=== PATIENT | female | born 1960 | race Caucasian/White ===

== ENCOUNTER → 2017-10-26 10:23 | Outpatient (CLI) | payer OTHER, MEDICAID, SELFPAY ==
[2017-10-26 11:45] LABS: INR 1.3 (0.9-1.3); Prothrombin Time 13.6 SECONDS (10.1-12.7)
[2017-10-26 12:10] LABS: Alanine Aminotransferase 24 IU/L (9-52); Albumin 3.8 g/dL (3.5-5.0); Albumin Globulin Ratio 1.1 (1.0-2.8); Alkaline Phosphatase 186 U/L (38-126); Amylase 32 U/L (30-110); Aspartate Aminotransferase 99 IU/L (14-36); Bilirubin Total 3.5 mg/dL (0.2-1.3); Calcium 8.8 mg/dL (8.4-10.2); Estimated Glomerular Filt Rate > 60.0 mL/min (>60); Gamma Glutamyl Transpeptidase 623 U/L (12-43); Globulin 3.5 g/dL (1.7-4.1); Glucose 118 mg/dL (70-100); HEMOLYSIS < 15 (0-50); Lipase 171 U/L (23-300); Magnesium 1.2 mg/dL (1.6-2.3); Potassium 3.5 mmol/L (3.4-5.1); Sodium 141 mmol/L (137-145); Total Protein 7.3 g/dL (6.3-8.2)
[2017-10-26 12:41] LABS: Thyroid Stimulating Hormone 4.94 uIU/mL (0.47-4.68)
[2017-10-26 12:57] LABS: Vitamin B12 343 pg/mL (239-931)
[2017-10-26 19:03] LABS: Hep C Virus Ab w/Reflex Quant NEGATIVE s/c (NEGATIVE)
[2017-10-27 14:03] LABS: Insulin Level Total 11.6 uIU/mL (2.0-19.6)
[2017-10-29 07:22] LABS: Vitamin B6 < 2.0 ng/mL (2.1-21.7)
[2017-10-30 09:40] LABS: Vitamin B1 168 nmol/L (78-185)
== END ==
PROVIDERS: Family Provider Family Medicine; PCP Family Medicine; Visit Provider Physician Assistant
DX: L29.8 Other pruritus (principal); F10.20 Alcohol dependence, uncomplicated; I10 Essential (primary) hypertension; R53.83 Other fatigue; K70.30 Alcoholic cirrhosis of liver without ascites
CPT/HCPCS: 36415; 80053; 82140; 82150; 82607; 82977; 83525; 83690; 83735; 84207; 84425; 84443; 85610; 86803

== ENCOUNTER → 2018-06-14 10:45 | Outpatient (CLI) | payer OTHER, MEDICAID, SELFPAY ==
[2018-06-14 11:47] LABS: Add Manual Diff / Slide Review NO; Basophils Percent Auto 0.6 % (0-2); Eosinophils Percent Auto 2.6 % (2-4); Hematocrit 41.6 % (36-46); Hemoglobin 14.2 g/dL (12.0-16.0); Lymphocytes Percent Auto 22.4 % (25-40); Mean Corpuscular HGB Conc 34.2 % (30-36); Mean Corpuscular Hemoglobin 32.4 PG (26-34); Monocytes Percent Auto 6.4 % (3-14); Neutrophils Absolute Auto 4000 /uL (1500-7000); Platelet Count 153 X10^3/uL (150-400); Red Blood Cell Count 4.38 X10^6/uL (4.0-5.2); Red Cell Distribution Width 15.4 % (11.6-14.8); White Blood Cell Count 5.9 X10^3/uL (4.5-11.0)
[2018-06-14 11:49] LABS: HEMOLYSIS < 15 (0-50); Iron 100 ug/dL (37-170)
[2018-06-14 11:53] LABS: Alanine Aminotransferase 8 IU/L (9-52); Albumin 4.9 g/dL (3.5-5.0); Albumin Globulin Ratio 1.3 (1.0-2.8); Alkaline Phosphatase 100 U/L (38-126); Aspartate Aminotransferase 31 IU/L (14-36); BUN Creatinine Ratio 11.3 (6-22); Bilirubin Total 2.2 mg/dL (0.2-1.3); Blood Urea Nitrogen 9 mg/dL (7-17); Calcium 9.8 mg/dL (8.4-10.2); Carbon Dioxide 24 mmol/L (22-32); Chloride 106 mmol/L (98-107); Cholesterol 196 mg/dL (140-199); Estimated Glomerular Filt Rate > 60.0 mL/min (>60); Globulin 3.8 g/dL (1.7-4.1); Glucose 107 mg/dL (70-100); HDL Cholesterol 57 mg/dL (40-60); HEMOLYSIS < 15 (0-50); LDL Cholesterol Calculated 116 mg/dL (<100); Magnesium 1.7 mg/dL (1.6-2.3); Potassium 4.1 mmol/L (3.4-5.1); Sodium 143 mmol/L (137-145); Total Protein 8.7 g/dL (6.3-8.2); Triglycerides 117 mg/dL (35-150)
[2018-06-14 12:00] LABS: Percent Iron Saturation 31 % (15-50); Total Iron Binding Capacity 319 ug/dL (265-497); Transferrin 252 mg/dL (206-381)
[2018-06-14 12:05] LABS: Creatinine Urine Random 99.3 mg/dL
[2018-06-14 12:10] LABS: Microalbumin Urine Random 0.6 mg/dL (0-1.6)
[2018-06-14 12:22] LABS: Thyroid Stimulating Hormone 3.34 uIU/mL (0.47-4.68)
[2018-06-14 12:26] LABS: Ferritin 88.9 ng/mL (11.1-264)
[2018-06-14 12:57] LABS: Folate 19.1 ng/mL (2.76-20.0); Vitamin B12 291 pg/mL (239-931)
[2018-06-15 19:08] LABS: Vitamin B6 6.8 ng/mL (2.1-21.7)
== END ==
PROVIDERS: PCP Physician Assistant; Visit Provider Physician Assistant
DX: I10 Essential (primary) hypertension (principal); K70.30 Alcoholic cirrhosis of liver without ascites; L65.9 Nonscarring hair loss, unspecified; R53.83 Other fatigue; E53.1 Pyridoxine deficiency; R79.0 Abnormal level of blood mineral
CPT/HCPCS: 36415; 80053; 80061; 82043; 82570; 82607; 82728; 82746; 83540; 83550; 83735; 84207; 84443; 85025

== ENCOUNTER 2018-11-22 20:25 | Emergency (ER) | payer OTHER, MEDICAID, SELFPAY ==
[2018-11-22 20:28] VITALS: BP 171/90; PULSE 82; RESP 14; TEMP 36.6; O2SAT 96
--- NOTE | 2018-11-22 20:37 | DI.RAD.S_ITS ---
PROCEDURE: XR ANKLE LT MIN 3V INDICATIONS: fall w/ pain swelling in ankle TECHNIQUE: 3 views of the ankle were acquired. COMPARISON: None. FINDINGS: Bones: No bony irregularity at the tip of the lateral malleolus is present. No displaced fractures or dislocations are identified. The ankle mortise is well-maintained. Sclerosis and heterogeneity involving the navicular is noted, which is not well characterized. The ankle mortise is well-maintained. There is lucency evident involving the lateral margin of the talar dome. Os trigonum is noted. Soft tissues: Soft tissue swelling overlying the lateral malleolus is evident. No radiopaque foreign bodies are evident. IMPRESSION: 1. Probable subtle avulsion fracture involving the tip of the lateral malleolus. 2. Lucency involving the lateral talar dome is suspicious for a developing osteochondral defect. CT or MRI would be helpful for better evaluation. 3. Sclerosis of the navicular may be related to previous injury. However, subtle compression fracture cannot be completely excluded. Dictated by: Aly Carr M.D. on 11/22/2018 at 21:31 Approved by: Aly Carr M.D. on 11/22/2018 at 21:33
--- NOTE | 2018-11-22 21:32 | ED.LOWEXIN ---
HPI - Extremity Injury (Lower) General Chief Complaint: Extremity Injury, Lower Stated Complaint: LEFT ANKLE SWELLING Time Seen by Provider: 11/22/18 21:23 Source: patient Mode of arrival: ambulatory Limitations: no limitations History of Present Illness HPI Narrative: Patient is a 58-year-old female who presents with left ankle pain. She says she rolled it just about an hour ago she initially was able to walk on it however she has had more bruising swelling. She denies any numbness or tingling. No knee pain. Related Data Home Medications Medication Instructions Recorded Confirmed multivitamin [Multiple Vitamins] 1 tab PO QDAY #0 05/12/17 11/22/18 verapamil 120 mg PO DAILY 11/22/18 11/22/18 Previous Rx's Medication Instructions Recorded lorazepam 1 mg tablet 1 mg PO .COMPLEX #30 tab 05/20/18 Allergies Allergy/AdvReac Type Severity Reaction Status Date / Time Penicillins [PENICILLINS] Allergy Mild RASH Verified 11/22/18 20:30 lisinopril [LISINOPRIL] AdvReac Intermediate Nausea Verified 11/22/18 20:30 Redness of skin Review of Systems Review of Systems GENERAL: Denies chills,fever HEENT: Denies throat pain RESPIRATORY: Denies dyspnea, cough, wheezing CARDIOVASCULAR: Denies chest pain, palpitations GASTROINTESTINAL: Denies nausea, vomiting MUSCULOSKELETAL: See HPI SKIN: No rash, no laceration, no pruritus NEUROLOGIC: Denies weakness, dizziness, headache, numbness 8 point review of systems is negative except for those stated above and HPI PFSH Medical History Patient denies significant medical history (Acute) Surgical History Status post delivery Status post laparoscopic cholecystectomy (04/26/17) Family History Mother Cancer Grandfather Heart disease Social History Smoking Status: Current every day smoker Tobacco: How many years used: 30 quit status: not considering quitting (Declined cessation handout) second hand exposure: No alcohol intake: former (I quit 6 months ago.) substance use type: does not use Family History Mother Cancer Grandfather Heart disease Social History Smoking Status: Current every day smoker Tobacco: How many years used: 30 quit status: not considering quitting (Declined cessation handout) second hand exposure: No alcohol intake: former (I quit 6 months ago.) substance use type: does not use Exam Initial Vital Signs Initial Vital Signs: Vital Signs Temperature 97.8 F 11/22/18 20:28 Pulse Rate 82 11/22/18 20:28 Respiratory Rate 14 11/22/18 20:28 Blood Pressure 171/90 H 11/22/18 20:28 Pulse Oximetry 96 11/22/18 20:28 GENERAL: Well-appearing, well-nourished and in no acute distress. CARDIOVASCULAR: peripheral pulses in tact, cap refill <2 sec RESPIRATORY: No respiratory distress, speaks in full sentences without difficulty EXTREMITIES: Normal range of motion, no clubbing or edema. Neurovascularly intact Left ankle: Swelling and contusion noted on lateral malleoli significant pain with touching peripheral pulses intact. Achilles tendon intact knee is stable. NEUROLOGICAL: Cranial nerves II through XII grossly intact. Normal gait and speech. SKIN: Warm, dry, no petechiae, no rashes or lesions. Procedures Orthopedic Splinting/Casting Injury #1: Side: left Lower Extremity Injury Location: ankle Lower Extremity Immobilizer: boot orthosis Post splinting neuro exam: intact Post splinting vascular exam: intact Placed by: Nursing Course Orders Ordered: ED Orders 11/22/18 20:37 XR ankle LT min 3V Stat Vital Signs - 8 hr 11/22/18 20:28 11/22/18 22:14 Temperature 97.8 F 98.2 F Pulse Rate 82 70 Respiratory Rate 14 20 Blood Pressure 171/90 H 174/93 H Pulse Oximetry 96 97 MDM - Extremity Injury (Lower) Imaging Data Abdominal x-ray: Radiologist's impression: PROCEDURE: XR ANKLE LT MIN 3V INDICATIONS: fall w/ pain swelling in ankle TECHNIQUE: 3 views of the ankle were acquired. COMPARISON: None. FINDINGS: Bones: No bony irregularity at the tip of the lateral malleolus is present. No displaced fractures or dislocations are identified. The ankle mortise is well-maintained. Sclerosis and heterogeneity involving the navicular is noted, which is not well characterized. The ankle mortise is well-maintained. There is lucency evident involving the lateral margin of the talar dome. Os trigonum is noted. Soft tissues: Soft tissue swelling overlying the lateral malleolus is evident. No radiopaque foreign bodies are evident. IMPRESSION: 1. Probable subtle avulsion fracture involving the tip of the lateral malleolus. 2. Lucency involving the lateral talar dome is suspicious for a developing osteochondral defect. CT or MRI would be helpful for better evaluation. 3. Sclerosis of the navicular may be related to previous injury. However, subtle compression fracture cannot be completely excluded. Dictated by: Aly Carr M.D. on 11/22/2018 at 21:31 MDM Narrative Medical decision making narrative: Patient has a very slight possible avulsion fracture. She is placed in a boot recommend she follow up with Orthopedics. Discharge Plan Departure Patient Disposition: Home Clinical Impression: Ankle fracture Qualifiers: Encounter type: initial encounter Fracture type: closed Laterality: left Qualified Code(s): S82.892A - Other fracture of left lower leg, initial encounter for closed fracture Discharge Date/Time: 11/22/18 22:16 Interventions: ED Discharge Assessment Last Done: 11/22/18 22:14 Instructions: DI for Ankle Fracture Activity Restrictions/Additional Instructions: *You have been diagnosed with left ankle fracture *What to do: Do a very small possible avulsion fracture which should heal on its own. However I recommend that he wear walking boot and follow up with Orthopedics surgery. Wear boot at all times including while sleeping *Continue to take medications as directed *Follow up with your primary care provider in 2-3 days, call Orthopedics does schedule followup *Return to ER if you should have increased pain, numbness or tingling or any new, worsening or concerning symptoms Prescriptions: No Action lorazepam 1 mg tablet 1 mg PO .COMPLEX Qty: 30 RF: 3 multivitamin [Multiple Vitamins] 1 EACH tablet 1 tab PO QDAY Qty: 0 RF: 0 verapamil 120 mg tablet extended release 120 mg PO DAILY RF: 0 Referrals: [facility] [Outside] Mica Yi PA-C [Primary Care Provider] -
[2018-11-22 22:14] VITALS: BP 174/93; PULSE 70; RESP 20; TEMP 36.8; O2SAT 97
== END 2018-11-22 22:16 | disposition home or self-care (01) ==
PROVIDERS: Emergency Provider Emergency Medicine; PCP Physician Assistant
DX: S82.892A Other fracture of left lower leg, initial encounter for closed fracture (principal)
CPT/HCPCS: 73610; 99282; 99283

== ENCOUNTER → 2019-02-17 10:38 | Outpatient (CLI) | payer OTHER, MEDICAID, SELFPAY ==
[2019-02-17 11:59] LABS: Alanine Aminotransferase 23 IU/L (9-52); Albumin 4.6 g/dL (3.5-5.0); Albumin Globulin Ratio 1.4 (1.0-2.8); Alkaline Phosphatase 96 U/L (38-126); Aspartate Aminotransferase 55 IU/L (14-36); BUN Creatinine Ratio 12.9 (6-22); Bilirubin Total 1.6 mg/dL (0.2-1.3); Blood Urea Nitrogen 9 mg/dL (7-17); Carbon Dioxide 24 mmol/L (22-32); Chloride 106 mmol/L (98-107); Estimated Glomerular Filt Rate > 60.0 mL/min (>60); Globulin 3.2 g/dL (1.7-4.1); Glucose 105 mg/dL (70-100); HEMOLYSIS < 15 (0-50); Potassium 4.4 mmol/L (3.4-5.1); Sodium 142 mmol/L (137-145); Total Protein 7.8 g/dL (6.3-8.2)
[2019-02-17 12:43] LABS: Vitamin B12 324 pg/mL (239-931)
== END ==
PROVIDERS: PCP Physician Assistant; Visit Provider Physician Assistant
DX: E53.8 Deficiency of other specified B group vitamins (principal); K70.30 Alcoholic cirrhosis of liver without ascites; I10 Essential (primary) hypertension
CPT/HCPCS: 36415; 80053; 82607

== ENCOUNTER → 2019-08-15 14:57 | Outpatient (CLI) | payer OTHER, MEDICAID, SELFPAY ==
--- NOTE | 2019-08-15 | DI.MG.S_ITS ---
BILATERAL DIGITAL SCREENING MAMMOGRAM 3D/2D WITH CAD: 08/15/2019 CLINICAL: Routine screening. Family history of breast cancer. Comparison is made to exams dated: 08/31/2017 mammogram, 04/21/2016 mammogram, and 04/03/2015 mammogram - [facility]. There are scattered fibroglandular elements in both breasts. Current study was also evaluated with a Computer Aided Detection (CAD) system. No significant masses, calcifications, or other findings are seen in either breast. There has been no significant interval change. IMPRESSION: NEGATIVE There is no mammographic evidence of malignancy. A 1 year screening mammogram is recommended. This exam was interpreted at Station ID: [id number]. NOTE: For mammograms, a report in lay terms will be sent to the patient. Approximately 15% of breast malignancies will not be visualized mammographically. In the management of a palpable breast mass, a negative mammogram must not discourage biopsy of a clinically suspicious lesion. Electronically Signed By: Anastacio solis/sandor:08/15/2019 19:13:21 copy to: HEATHER HUERTA letter sent: Normal Exam ACR BI-RADS Category 1: Negative [id number]
== END ==
PROVIDERS: PCP Nurse Practitioner Family; Referring Provider Nurse Practitioner Family; Visit Provider Physician Assistant
DX: Z12.31 Encounter for screening mammogram for malignant neoplasm of breast (principal); Z80.3 Family history of malignant neoplasm of breast
CPT/HCPCS: 77063; 77067

== ENCOUNTER → 2019-11-01 10:48 | Outpatient (CLI) | payer OTHER, MEDICAID, SELFPAY ==
[2019-11-01 12:40] LABS: Alanine Aminotransferase 18 IU/L (<35); Albumin 3.7 g/dL (3.5-5.0); Alkaline Phosphatase 171 U/L (38-126); Aspartate Aminotransferase 111 IU/L (14-36); BUN Creatinine Ratio 11.1 (6-22); Bilirubin Total 3.2 mg/dL (0.2-1.3); Blood Urea Nitrogen 6 mg/dL (7-17); Carbon Dioxide 20 mmol/L (22-32); Chloride 109 mmol/L (98-107); Cholesterol 125 mg/dL (140-199); Estimated Glomerular Filt Rate > 60.0 mL/min (>60); Globulin 3.7 g/dL (1.7-4.1); Glucose 130 mg/dL (70-100); HDL Cholesterol 14 mg/dL (40-60); HEMOLYSIS < 15 (0-50); LDL Cholesterol Calculated 81 mg/dL (<100); Potassium 3.7 mmol/L (3.4-5.1); Sodium 138 mmol/L (137-145); Total Protein 7.4 g/dL (6.3-8.2); Triglycerides 152 mg/dL (35-150)
[2019-11-01 13:26] LABS: Vitamin B12 839 pg/mL (239-931)
[2019-11-01 16:35] LABS: Creatinine Urine Random 51.5 mg/dL
[2019-11-01 16:40] LABS: Microalbumi Creatinin Ratio Ur 38.8 ug/mg CR (<30)
[2020-02-03 12:04] LABS: Fecal Immunochemical Test POSITIVE
== END ==
PROVIDERS: PCP Nurse Practitioner Family; Referring Provider Physician Assistant; Visit Provider Physician Assistant
DX: Z13.6 Encounter for screening for cardiovascular disorders (principal); Z13.220 Encounter for screening for lipoid disorders; E53.8 Deficiency of other specified B group vitamins; I10 Essential (primary) hypertension
CPT/HCPCS: 36415; 80053; 80061; 82043; 82274; 82570; 82607

== ENCOUNTER → 2020-02-14 11:07 | Outpatient (CLI) | payer OTHER, MEDICAID, SELFPAY ==
[2020-02-14 12:19] LABS: Add Manual Diff / Slide Review NO; Basophils Absolute Auto 0 /uL (0-100); Basophils Percent Auto 0.6 % (0-2); Eosinophils Absolute Auto 0 /uL (0-450); Eosinophils Percent Auto 1.4 % (2-4); Hematocrit 34.9 % (36-46); Hemoglobin 11.9 g/dL (12.0-16.0); Lymphocytes Absolute Auto 600 /uL (1100-4500); Lymphocytes Percent Auto 17.8 % (25-40); Mean Corpuscular HGB Conc 34.2 % (30-36); Mean Corpuscular Hemoglobin 34.7 PG (26-34); Mean Corpuscular Volume 101.5 fL (80-100); Monocytes Absolute Auto 300 /uL (0-900); Monocytes Percent Auto 8.3 % (3-14); Neutrophils Absolute Auto 2300 /uL (1500-7000); Neutrophils Percent Auto 71.9 % (50-75); Platelet Count 95 X10^3/uL (150-400); Red Blood Cell Count 3.44 X10^6/uL (4.0-5.2); Red Cell Distribution Width 15.1 % (11.6-14.8); White Blood Cell Count 3.2 X10^3/uL (4.5-11.0)
[2020-02-14 12:22] LABS: INR 1.2 (0.9-1.3); Prothrombin Time 14.4 SECONDS (10.1-12.7)
[2020-02-14 12:51] LABS: Alanine Aminotransferase 9 IU/L (<35); Albumin 3.7 g/dL (3.5-5.0); Albumin Globulin Ratio 1.1 (1.0-2.8); Alkaline Phosphatase 112 U/L (38-126); Aspartate Aminotransferase 50 IU/L (14-36); BUN Creatinine Ratio 19.3 (6-22); Bilirubin Total 1.8 mg/dL (0.2-1.3); Blood Urea Nitrogen 11 mg/dL (7-17); Calcium 8.9 mg/dL (8.4-10.2); Carbon Dioxide 23 mmol/L (22-32); Chloride 111 mmol/L (98-107); Estimated Glomerular Filt Rate > 60.0 mL/min (>60); Globulin 3.3 g/dL (1.7-4.1); Glucose 111 mg/dL (70-100); HEMOLYSIS < 15 (0-50); Potassium 3.8 mmol/L (3.4-5.1); Sodium 142 mmol/L (137-145)
== END ==
PROVIDERS: PCP Nurse Practitioner Family; Referring Provider Surgery; Visit Provider Surgery
DX: K70.30 Alcoholic cirrhosis of liver without ascites (principal); R19.5 Other fecal abnormalities; F10.10 Alcohol abuse, uncomplicated; I10 Essential (primary) hypertension; Z90.49 Acquired absence of other specified parts of digestive tract
CPT/HCPCS: 36415; 80053; 85025; 85610; 99214

== ENCOUNTER → 2020-03-04 13:19 | Outpatient (CLI) | payer OTHER, MEDICAID, SELFPAY ==
[2020-03-05 09:42] LABS: COVID19 Sendout Not Detected (Not Detect)
== END ==
PROVIDERS: PCP Nurse Practitioner Family; Visit Provider Nurse Practitioner
DX: Z11.59 Encounter for screening for other viral diseases (principal)
CPT/HCPCS: 87635

== ENCOUNTER 2020-03-04 20:29 | Emergency (ER) | payer OTHER, MEDICAID, SELFPAY ==
[2020-03-04 20:38] VITALS: BP 134/75; PULSE 94; RESP 18; O2SAT 98
[2020-03-04 20:40] VITALS: PULSE 92; O2SAT 100
--- NOTE | 2020-03-04 20:45 | ED_ITS ---
HPI - Nausea/Vomiting/Diarrhea General Chief complaint: Nausea/Vomiting/Diarrhea Stated complaint: vomiting since last night with blood Time Seen by Provider: 03/04/20 20:32 Source: patient Mode of arrival: Wheelchair Limitations: no limitations History of Present Illness HPI Narrative: 59-year-old female. Admits to a long alcohol history. Here for evaluation of multiple episodes of vomiting for the past several hours. The left several episodes of vomiting was streaked with bright red blood. She also has had black colored stools. She is scheduled for colonoscopy in 2 days from now. This was done after she ?did a home test ?in a came back positive. She has never had an endoscopy or colonoscopy prior to this. Does report some lower abdominal discomfort. Reports some upper abdominal discomfort from the vomiting. She did eat some shrimp last evening which no one else ate and seemed to be sometime after this that the symptoms started. No fevers. Has not tried anything for symptoms prior to arrival. Related Data Home Medications Medication Instructions Recorded Confirmed Vitamin B12 See Rx Instructions .ROUTE .COMPLEX 03/08/19 02/14/20 Previous Rx's Medication Instructions Recorded lorazepam 1 mg tablet 1 mg PO BEDTIME #30 tab 08/12/19 verapamil 180 mg tablet,extended 180 mg PO DAILY #30 tab 08/12/19 release promethazine 25 mg tablet 25 mg PO Q6H PRN #60 tab 11/16/19 ondansetron 4 mg PO Q6H PRN #10 tab 03/04/20 Allergies Allergy/AdvReac Type Severity Reaction Status Date / Time Penicillins [PENICILLINS] Allergy Mild RASH Verified 03/04/20 13:17 lisinopril [LISINOPRIL] AdvReac Intermediate Nausea Verified 03/04/20 13:17 Redness of skin Review of Systems Constitutional Constitutional: Denies fever(s) and Denies headache(s) ENT Ears, Nose, Mouth, and Throat: Denies headache(s) Cardiovascular Cardiovascular: Denies chest pain and Denies dyspnea Respiratory Respiratory: Denies dyspnea Gastrointestinal Gastrointestinal: Reports abdominal pain, Reports melena, Reports nausea, Reports vomiting and Reports hematemesis Genitourinary Genitourinary: Denies dysuria Genitourinary: Denies dysuria Musculoskeletal Musculoskeletal: Denies arthralgias and Denies myalgias Integumentary/Breasts Skin/Breast: Denies lesions and Denies rash Neurologic Neurologic: Denies behavioral changes and Denies headache(s) Psychiatric Psychiatric: Denies behavioral changes Hematologic/Lymphatic Hematologic/Lymphatic: Denies easy bleeding and Denies easy bruising Allergic/Immunologic Allergic/Immunologic: Denies urticaria Patient History Medical History ETOH abuse (Acute) HTN (hypertension) (Acute) Nausea (Acute) Patient denies significant medical history (Acute) Surgical History Status post delivery Status post laparoscopic cholecystectomy (04/26/17) Family History Mother Cancer Gallstones Grandfather Heart disease Father Hypertension Prostate cancer Grandmother Breast cancer Family/Other Breast cancer Social History Smoking Status: Current every day smoker Tobacco: How many years used: 30 quit status: not considering quitting (Declined cessation handout) second hand exposure: No alcohol intake: current (3 beers/day) substance use type: does not use Smoking Status: Current every day smoker alcohol intake frequency: 0-2 drinks per day Substance Use Type: does not use Exam Initial Vital Signs Initial Vital Signs: Vital Signs Pulse Rate 94 H 03/04/20 20:38 Respiratory Rate 18 03/04/20 20:38 Blood Pressure 134/75 03/04/20 20:38 Pulse Oximetry 98 03/04/20 20:38 Const General: cooperative and comfortable Limitations: mental status not altered HENVA Head: normal to inspection and normocephalic Resp Effort & Inspection: normal respiratory effort Auscultation: clear to auscultation bilaterally Cardio Rate: regular rate Rhythm: regular rhythm GI Inspection: non-distended Palpation: soft, No firm and tender (Lower abdomen without rebound or guarding) Rectal Exam: visual inspection normal, heme positive stool and hemorrhoids Skin Lesions: no lesions Rashes: no rashes Neuro General: patient alert, patient awake and patient oriented x3 Cognition: normal cognition Speech: speech normal Extrem General: normal to inspection and capillary refill normal Psych Appearance: grossly normal and well kempt Scores GCS Vaibhav coma scale eye opening: Spontaneous [place] coma scale verbal response: Orientated Vaibhav coma scale motor response: Obey commands [place] coma scale total score: 15 Course Orders Ordered: ED Orders 03/04/20 20:38 Complete Blood Count AUTO DIFF Stat Comprehensive Metabolic Panel Stat Lipase Stat Partial Thromboplastin Time Stat Prothrombin Time INR Stat 03/04/20 20:45 EKG-12 Lead Stat Discontinued Medications Sodium Chloride (Normal Saline 0.9%) 1,000 mls @ 1,000 mls/hr IV BOLUS ONE Stop: 03/04/20 22:01 Last Infusion: 03/04/20 22:06 Dose: 0 mls/hr Documented by: Admin: 03/04/20 21:11 Dose: 1,000 mls/hr Documented by: HAYDER Ondansetron HCl (Zofran) 4 mg IV NOW ONE Stop: 03/04/20 21:03 Last Admin: 03/04/20 21:10 Dose: 4 mg Documented by: HAYDER Ondansetron HCl (Zofran Odt Prepack) 1 bottle MISC SEEINSTR ONE Stop: 03/04/20 22:24 Pantoprazole Sodium (Protonix) 40 mg IV NOW ONE Stop: 03/04/20 20:49 Last Admin: 03/04/20 21:10 Dose: 40 mg Documented by: HAYDER Potassium Chloride (Potassium Chloride) 20 meq PO NOW ONE Stop: 03/04/20 22:00 Last Admin: 03/04/20 22:04 Dose: 20 meq Documented by: HAYDER Vital Signs Vital signs: Vital Signs - 8 hr 03/04/20 20:38 03/04/20 20:40 03/04/20 21:00 Pulse Rate 94 H 92 H 85 Respiratory Rate 18 27 H Blood Pressure 134/75 Pulse Oximetry 98 100 100 03/04/20 21:14 03/04/20 21:30 03/04/20 22:00 Pulse Rate 80 75 73 Respiratory Rate 16 15 14 Blood Pressure 123/75 134/67 132/66 Pulse Oximetry 99 98 97 MDM - Nausea/Vomiting/Diarrhea Medical Records Attestation: I reviewed the patient's medical records. Lab Data Attestation: I reviewed the patient's lab results. Result diagrams: 03/04/20 20:38 03/04/20 20:38 Labs: Lab Results 03/04/20 03/04/20 03/04/20 Range/Units 20:38 20:38 20:38 WBC 8.9 (4.5-11.0) X10^3/uL RBC 3.14 L (4.0-5.2) X10^6/uL Hgb 11.5 L (12.0-16.0) g/dL Hct 33.2 L (36-46) % MCV 105.4 H (80-100) fL MCH 36.5 H (26-34) PG MCHC 34.6 (30-36) % RDW 17.3 H (11.6-14.8) % Plt Count 141 L (150-400) X10^3/uL Neut % (Auto) 81.4 H (50-75) % Lymph % (Auto) 8.9 L (25-40) % [place] % (Auto) 7.5 (3-14) % Eos % (Auto) 0.2 L (2-4) % Baso % (Auto) 2.0 (0-2) % Neut # (Auto) 7200 H (5794-1889) /uL Lymph # (Auto) 800 L (0004-9502) /uL [place] # (Auto) 700 (0-900) /uL Eos # (Auto) 0 (0-450) /uL Baso # (Auto) 200 H (0-100) /uL PT 19.8 H (10.1-12.7) SECONDS INR 1.7 H (0.9-1.3) APTT 37 H (26.4-36.2) SECONDS Sodium 142 (137-145) mmol/L Potassium 3.0 L (3.4-5.1) mmol/L Chloride 103 (98-107) mmol/L Carbon Dioxide 31 (22-32) mmol/L BUN 31 H (7-17) mg/dL Creatinine 0.66 (0.52-1.04) mg/dL Estimated GFR > 60.0 (>60) mL/min BUN/Creatinine Ratio 47.0 H (6-22) Glucose 135 H (70-100) mg/dL Calcium 8.4 (8.4-10.2) mg/dL Total Bilirubin 4.6 H (0.2-1.3) mg/dL AST 61 H (14-36) IU/L ALT 14 (<35) IU/L Alkaline Phosphatase 116 (38-126) U/L Total Protein 6.6 (6.3-8.2) g/dL Albumin 3.4 L (3.5-5.0) g/dL Globulin 3.2 (1.7-4.1) g/dL Albumin/Globulin Ratio 1.1 (1.0-2.8) Lipase (23-300) U/L 03/04/20 Range/Units 20:38 WBC (4.5-11.0) X10^3/uL RBC (4.0-5.2) X10^6/uL Hgb (12.0-16.0) g/dL Hct (36-46) % MCV (80-100) fL MCH (26-34) PG MCHC (30-36) % RDW (11.6-14.8) % Plt Count (150-400) X10^3/uL Neut % (Auto) (50-75) % Lymph % (Auto) (25-40) % [place] % (Auto) (3-14) % Eos % (Auto) (2-4) % Baso % (Auto) (0-2) % Neut # (Auto) (5546-3652) /uL Lymph # (Auto) (9139-8346) /uL [place] # (Auto) (0-900) /uL Eos # (Auto) (0-450) /uL Baso # (Auto) (0-100) /uL PT (10.1-12.7) SECONDS INR (0.9-1.3) APTT (26.4-36.2) SECONDS Sodium (137-145) mmol/L Potassium (3.4-5.1) mmol/L Chloride (98-107) mmol/L Carbon Dioxide (22-32) mmol/L BUN (7-17) mg/dL Creatinine (0.52-1.04) mg/dL Estimated GFR (>60) mL/min BUN/Creatinine Ratio (6-22) Glucose (70-100) mg/dL Calcium (8.4-10.2) mg/dL Total Bilirubin (0.2-1.3) mg/dL AST (14-36) IU/L ALT (<35) IU/L Alkaline Phosphatase (38-126) U/L Total Protein (6.3-8.2) g/dL Albumin (3.5-5.0) g/dL Globulin (1.7-4.1) g/dL Albumin/Globulin Ratio (1.0-2.8) Lipase 93 (23-300) U/L Point of Care Testing Stool Occult Blood Positive ECG Data Attestation: I personally reviewed and interpreted this ECG as follows: Prior ECG tracings: not available for review Interpretation: Sinus rhythm Ventricular rate 85 Left axis deviation LVH No ST T wave changes MDM Narrative Medical decision making narrative: Patient is a benign exam. Not anemic. Not tachycardic. Not hypotensive. Was hypokalemic however I feel this is secondary to the vomiting. She was able to tolerate oral potassium here in the ER without vomiting. She is Hemoccult positive. His already scheduled for a colonoscopy on Thursday of this week secondary to a home test that showed that she did have some GI bleeding. 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 Has benign abdominal exam. Feel we can hold on any CT scans for now. She was advised to continue to abstain from alcohol. I suspect that the bright red blood in her vomitus secondary to a Alexandra-Gibson tear. Patient was given return precautions and follow-up instructions. She expressed understanding and agreement. Discharge Plan Departure Patient Disposition: Home Clinical Impression: Hypokalemia, Melena Nausea and vomiting Qualifiers: Vomiting type: hematemesis Qualified Code(s): K92.0 - Hematemesis Instructions: Nausea and Vomiting-Adult Activity Restrictions/Additional Instructions: Use the nausea medication as needed and as directed. Keep all of your scheduled medical appointments to include the colonoscopy that you have on Thursday. Follow all of the instructions with regard to the prep for this procedure. Over the next couple days increase your fluid intake but drinking small amounts of fluid over longer periods of time. Recommend that you abstain from alcohol use. Return to the emergency department for any new or worsening symptoms Prescriptions: New ondansetron 4 mg tablet,disintegrating 4 mg PO Q6H PRN (Reason: nausea and vomiting) Qty: 10 RF: 0 No Action lorazepam 1 mg tablet 1 mg PO BEDTIME Qty: 30 RF: 3 verapamil 180 mg tablet extended release 180 mg PO DAILY Qty: 30 RF: 6 Vitamin B12 See Rx Instructions .ROUTE .COMPLEX RF: 0 promethazine 25 mg tablet 25 mg PO Q6H PRN (Reason: nausea and vomiting) Qty: 60 RF: 0 Referrals: Sanjuana Sommer ARNP [Primary Care Provider] -
[2020-03-04 20:52] LABS: INR 1.7 (0.9-1.3); Prothrombin Time 19.8 SECONDS (10.1-12.7)
[2020-03-04 20:55] LABS: PTT Partial Thromboplastin Tim 37 SECONDS (26.4-36.2)
[2020-03-04 20:56] LABS: Add Manual Diff / Slide Review NO; Basophils Absolute Auto 200 /uL (0-100); Eosinophils Absolute Auto 0 /uL (0-450); Eosinophils Percent Auto 0.2 % (2-4); Hematocrit 33.2 % (36-46); Hemoglobin 11.5 g/dL (12.0-16.0); Lymphocytes Absolute Auto 800 /uL (1100-4500); Lymphocytes Percent Auto 8.9 % (25-40); Mean Corpuscular HGB Conc 34.6 % (30-36); Mean Corpuscular Hemoglobin 36.5 PG (26-34); Mean Corpuscular Volume 105.4 fL (80-100); Monocytes Absolute Auto 700 /uL (0-900); Monocytes Percent Auto 7.5 % (3-14); Neutrophils Absolute Auto 7200 /uL (1500-7000); Neutrophils Percent Auto 81.4 % (50-75); Platelet Count 141 X10^3/uL (150-400); Red Blood Cell Count 3.14 X10^6/uL (4.0-5.2); Red Cell Distribution Width 17.3 % (11.6-14.8); White Blood Cell Count 8.9 X10^3/uL (4.5-11.0)
[2020-03-04 21:00] VITALS: PULSE 85; RESP 27; O2SAT 100
[2020-03-04 21:05] LABS: Lipase 93 U/L (23-300)
[2020-03-04 21:06] LABS: Alanine Aminotransferase 14 IU/L (<35); Albumin 3.4 g/dL (3.5-5.0); Albumin Globulin Ratio 1.1 (1.0-2.8); Alkaline Phosphatase 116 U/L (38-126); Aspartate Aminotransferase 61 IU/L (14-36); Bilirubin Total 4.6 mg/dL (0.2-1.3); Blood Urea Nitrogen 31 mg/dL (7-17); Calcium 8.4 mg/dL (8.4-10.2); Carbon Dioxide 31 mmol/L (22-32); Chloride 103 mmol/L (98-107); Estimated Glomerular Filt Rate > 60.0 mL/min (>60); Globulin 3.2 g/dL (1.7-4.1); Glucose 135 mg/dL (70-100); HEMOLYSIS < 15 (0-50); Sodium 142 mmol/L (137-145); Total Protein 6.6 g/dL (6.3-8.2)
[2020-03-04] MEDS: ONDANSETRON 4 MG/2 ML INJ IV (21:10)
[2020-03-04] MEDS: PANTOPRAZOLE 40 MG VIAL IV (21:10)
[2020-03-04] MEDS: SODIUM CHLORIDE 0.9% 1,000 ML 1000 ML IV (21:11)
[2020-03-04 21:14] VITALS: BP 123/75; PULSE 80; RESP 16; O2SAT 99
[2020-03-04 21:30] VITALS: BP 134/67; PULSE 75; RESP 15; O2SAT 98
[2020-03-04 22:00] VITALS: BP 132/66; PULSE 73; RESP 14; O2SAT 97
[2020-03-04] MEDS: POTASSIUM CHLORIDE 20 MEQ/15 ML UDC PO (22:04)
[2020-03-04] MEDS: ONDANSETRON 4 MG ODT PREPACK 1 BOTTLE MISC (22:29)
== END 2020-03-04 22:35 | disposition home or self-care (01) ==
PROVIDERS: Emergency Provider Emergency Medicine; PCP Nurse Practitioner Family
DX: K92.0 Hematemesis (principal); K92.1 Melena; E87.6 Hypokalemia; Z11.59 Encounter for screening for other viral diseases
CPT/HCPCS: 36415; 80053; 82272; 83690; 85025; 85610; 85730; 87635; 93005; 96361; 96374; 96375; 99284; C9113; J2405

== ENCOUNTER 2020-03-05 08:00 | Emergency (ER) | payer OTHER, MEDICAID, SELFPAY ==
[2020-03-05] VITALS (9 sets, daily range): BP systolic 134–144; BP diastolic 71; PULSE 80–97; RESP 18–35; TEMP 36.6; O2SAT 92–98; BMI 27.4
--- NOTE | 2020-03-05 08:12 | ED.ABDPAIN ---
HPI - Abdominal Pain General Chief Complaint: GI Bleed Stated Complaint: hemoraghing/ left ED lastnight Time Seen by Provider: 03/05/20 08:05 Source: patient and old records reviewed Mode of arrival: Ambulatory Limitations: no limitations History of Present Illness HPI narrative: Patient is a 59-year-old female with history of alcohol abuse presenting for the 2nd time in 24 hours. She was actually seen and evaluated last evening for nausea and vomiting. She was found to be hypokalemic she thinks she ate some bad food 2 nights ago. Initially she was just vomiting up the food however she started vomiting up some blood as well. Blood work and vitals were stable last evening. This morning she says she is having bright red blood per rectum she says it just liquid she has got about 3 times. She denies any clots. She has some mild abdominal cramping. She continues to feel nauseated but no vomiting. She also feels dizzy and lightheaded when she stands up. She actually is supposed to start taking GoLYTELY tomorrow she scheduled for colonoscopy in 2 days MD complaint: abdominal pain Location: diffuse Quality: cramping Related Data Home Medications Medication Instructions Recorded Confirmed Vitamin B12 See Rx Instructions .ROUTE .COMPLEX 03/08/19 02/14/20 Previous Rx's Medication Instructions Recorded lorazepam 1 mg tablet 1 mg PO BEDTIME #30 tab 08/12/19 verapamil 180 mg tablet,extended 180 mg PO DAILY #30 tab 08/12/19 release promethazine 25 mg tablet 25 mg PO Q6H PRN #60 tab 11/16/19 ondansetron 4 mg PO Q6H PRN #10 tab 03/04/20 Allergies Allergy/AdvReac Type Severity Reaction Status Date / Time Penicillins [PENICILLINS] Allergy Mild RASH Verified 03/05/20 08:08 lisinopril [LISINOPRIL] AdvReac Intermediate Nausea Verified 03/05/20 08:08 Redness of skin Review of Systems Review of Systems ROS Unobtainable: All systems reviewed & are unremarkable except as noted in HPI and below Constitutional Constitutional: Denies chills, Denies fever(s), Denies lethargy and Denies weakness Eyes Eyes: Denies change in vision, Denies eye discharge, Denies irritation and Denies loss of vision Cardiovascular Cardiovascular: Denies chest pain, Reports lightheadedness, Denies dyspnea and Reports dyspnea on exertion Respiratory Respiratory: Denies cough, Denies dyspnea and Reports dyspnea on exertion Gastrointestinal Gastrointestinal: Reports as per HPI, Reports abdominal pain and Reports nausea Musculoskeletal Musculoskeletal: Denies back pain Integumentary/Breasts Skin/Breast: Denies pruritus, Denies erythema, Denies rash and Denies wounds Neurologic Neurologic: Denies loss of vision and Denies weakness Patient History Medical History ETOH abuse (Acute) HTN (hypertension) (Acute) Nausea (Acute) Patient denies significant medical history (Acute) Surgical History Status post delivery Status post laparoscopic cholecystectomy (04/26/17) Family History Mother Cancer Gallstones Grandfather Heart disease Father Hypertension Prostate cancer Grandmother Breast cancer Family/Other Breast cancer Social History Smoking Status: Current every day smoker Tobacco: How many years used: 30 quit status: not considering quitting (Declined cessation handout) second hand exposure: No alcohol intake: current (3 beers/day) substance use type: does not use Smoking Status: Current every day smoker alcohol intake frequency: 0-2 drinks per day Substance Use Type: does not use Exam Initial Vital Signs Initial Vital Signs: Vital Signs Temperature 97.9 F 03/05/20 08:06 Pulse Rate 96 H 03/05/20 08:06 Respiratory Rate 18 03/05/20 08:06 Blood Pressure 134/71 03/05/20 08:06 Pulse Oximetry 98 03/05/20 08:06 GENERAL: Well-appearing, well-nourished and in no acute distress. HEENT: Head atraumatic,EOMI, pupils reactive, face symmetric, moist mucous membranes CARDIOVASCULAR: Regular rate and rhythm without murmurs, rubs or gallops. RESPIRATORY: Breath sounds equal bilaterally, no wheezes rales or rhonchi. ABDOMEN: Soft, mild diffuse tenderness no localization. Normoactive bowel sounds all 4 quadrants. No guarding or rebound. RECTAL: Hemoccult-positive positive hemorrhoids no gross blood : No CVA tenderness EXTREMITIES: Normal range of motion, no clubbing or edema. Neurovascularly intact NEUROLOGICAL: Alert and oriented x4.Normal gait and speech. Cranial nerves II through XII grossly intact. SKIN: Warm, dry, no laceration, no petechiae, no rashes or lesions. Course Orders Ordered: ED Orders 03/05/20 08:10 Complete Blood Count AUTO DIFF Stat Comprehensive Metabolic Panel Stat Partial Thromboplastin Time Stat Prothrombin Time INR Stat Type and Screen Stat 03/05/20 08:25 Lactate (Lactic Acid) Stat 03/05/20 08:37 CT abdomen pelvis w con Stat 03/05/20 09:36 GI Panel (Film Array) Stat Discontinued Medications Sodium Chloride (Normal Saline 0.9%) 1,000 mls @ 150 mls/hr IV CONT RUBY Last Infusion: 03/05/20 11:12 Dose: 0 mls/hr Documented by: Admin: 03/05/20 08:44 Dose: 150 mls/hr Documented by: JOY Ondansetron HCl (Zofran) 4 mg IV NOW ONE Stop: 03/05/20 08:16 Last Admin: 03/05/20 08:45 Dose: 4 mg Documented by: JOY Ondansetron HCl (Zofran) 4 mg IV NOW ONE Stop: 03/05/20 08:22 Last Admin: 03/05/20 11:15 Dose: Not Given Documented by: STEPHANIE Pantoprazole Sodium (Protonix) 40 mg IV NOW ONE Stop: 03/05/20 08:22 Last Admin: 03/05/20 08:44 Dose: 40 mg Documented by: JOY Potassium Chloride (Klor-Con M20) 40 meq PO NOW ONE Stop: 03/05/20 11:05 Last Admin: 03/05/20 11:14 Dose: 40 meq Documented by: STEPHANIE Consultations Consultation #1: Dr. Gibson agrees with continuing GoLYTELY and colonoscopy as scheduled Time: 11:04 Vital Signs Vital signs: Vital Signs - 8 hr 03/05/20 08:06 03/05/20 08:17 03/05/20 08:30 Temperature 97.9 F Pulse Rate 96 H 97 H 87 Respiratory Rate 18 35 H 19 Blood Pressure 134/71 Pulse Oximetry 98 98 97 03/05/20 09:00 03/05/20 09:30 03/05/20 10:00 Temperature Pulse Rate 87 81 84 Respiratory Rate 32 H Blood Pressure Pulse Oximetry 97 96 98 03/05/20 10:30 03/05/20 11:00 03/05/20 11:16 Temperature Pulse Rate 80 81 Respiratory Rate Blood Pressure 144/71 H Pulse Oximetry 92 98 MDM - Abdominal Pain Lab Data Attestation: I reviewed the patient's lab results. Result diagrams: 03/05/20 08:10 03/05/20 08:10 Labs: Lab Results 03/05/20 03/05/20 03/05/20 Range/Units 08:10 08:10 08:10 WBC 9.0 (4.5-11.0) X10^3/uL RBC 3.02 L (4.0-5.2) X10^6/uL Hgb 11.1 L (12.0-16.0) g/dL Hct 32.0 L (36-46) % MCV 106.2 H (80-100) fL MCH 36.7 H (26-34) PG MCHC 34.6 (30-36) % RDW 18.4 H (11.6-14.8) % Plt Count 154 (150-400) X10^3/uL Neut % (Auto) 69.0 (50-75) % Lymph % (Auto) 22.6 L (25-40) % [place] % (Auto) 8.0 (3-14) % Eos % (Auto) 0.2 L (2-4) % Baso % (Auto) 0.2 (0-2) % Neut # (Auto) 6200 (6693-1466) /uL Lymph # (Auto) 2000 (6205-4833) /uL [place] # (Auto) 700 (0-900) /uL Eos # (Auto) 0 (0-450) /uL Baso # (Auto) 0 (0-100) /uL PT 19.0 H (10.1-12.7) SECONDS INR 1.7 H (0.9-1.3) APTT 37 H (26.4-36.2) SECONDS Sodium 141 (137-145) mmol/L Potassium 3.0 L (3.4-5.1) mmol/L Chloride 107 (98-107) mmol/L Carbon Dioxide 25 (22-32) mmol/L BUN 33 H (7-17) mg/dL Creatinine 0.79 (0.52-1.04) mg/dL Estimated GFR > 60.0 (>60) mL/min BUN/Creatinine Ratio 41.8 H (6-22) Glucose 129 H (70-100) mg/dL Lactate (0.7-2.1) mmol/L Calcium 8.1 L (8.4-10.2) mg/dL Total Bilirubin 4.0 H (0.2-1.3) mg/dL AST 49 H (14-36) IU/L ALT 12 (<35) IU/L Alkaline Phosphatase 113 (38-126) U/L Total Protein 6.3 (6.3-8.2) g/dL Albumin 3.3 L (3.5-5.0) g/dL Globulin 3.0 (1.7-4.1) g/dL Albumin/Globulin Ratio 1.1 (1.0-2.8) Stl C. cayetanensis PCR (Not Detect) Stool Rotavirus (PCR) (Not Detect) Stool Adenovirus (PCR) (Not Detect) Stool Astrovirus (PCR) (Not Detect) Stool Cryptosporidium PCR (Not Detect) Stl E.coli Shiga Tox PCR (Not Detect) St Sh/Enteroin Ecoli PCR (Not Detect) Stool E coli O157 PCR Stl Enterotoxigenic E PCR (Not Detect) Stool EPEC (PCR) (Not Detect) Stl E. histolytica PCR (Not Detect) Stool Giardia Lamblia PCR (Not Detect) Stool Sapovirus (PCR) (Not Detect) Stl P. shigelloides PCR (Not Detect) St Y.enterocolitica PCR (Not Detect) Stool Vibrio (PCR) (Not Detect) Stl Vibrio cholerae PCR (Not Detect) Stl Enteroaggr Ecoli PCR (Not Detect) Stl Norovirus GI/GII PCR (Not Detect) Campylobacter (PCR) (Not Detect) C. difficile Tox (PCR) (Not Detect) Salmonella (PCR) (Not Detect) Blood Type Antibody Screen 03/05/20 03/05/20 03/05/20 Range/Units 08:10 08:25 09:36 WBC (4.5-11.0) X10^3/uL RBC (4.0-5.2) X10^6/uL Hgb (12.0-16.0) g/dL Hct (36-46) % MCV (80-100) fL MCH (26-34) PG MCHC (30-36) % RDW (11.6-14.8) % Plt Count (150-400) X10^3/uL Neut % (Auto) (50-75) % Lymph % (Auto) (25-40) % [place] % (Auto) (3-14) % Eos % (Auto) (2-4) % Baso % (Auto) (0-2) % Neut # (Auto) (4504-8806) /uL Lymph # (Auto) (6982-7781) /uL [place] # (Auto) (0-900) /uL Eos # (Auto) (0-450) /uL Baso # (Auto) (0-100) /uL PT (10.1-12.7) SECONDS INR (0.9-1.3) APTT (26.4-36.2) SECONDS Sodium (137-145) mmol/L Potassium (3.4-5.1) mmol/L Chloride (98-107) mmol/L Carbon Dioxide (22-32) mmol/L BUN (7-17) mg/dL Creatinine (0.52-1.04) mg/dL Estimated GFR (>60) mL/min BUN/Creatinine Ratio (6-22) Glucose (70-100) mg/dL Lactate 2.6 H (0.7-2.1) mmol/L Calcium (8.4-10.2) mg/dL Total Bilirubin (0.2-1.3) mg/dL AST (14-36) IU/L ALT (<35) IU/L Alkaline Phosphatase (38-126) U/L Total Protein (6.3-8.2) g/dL Albumin (3.5-5.0) g/dL Globulin (1.7-4.1) g/dL Albumin/Globulin Ratio (1.0-2.8) Stl C. cayetanensis PCR Not detected (Not Detect) Stool Rotavirus (PCR) Not detected (Not Detect) Stool Adenovirus (PCR) Not detected (Not Detect) Stool Astrovirus (PCR) Not detected (Not Detect) Stool Cryptosporidium PCR Not detected (Not Detect) Stl E.coli Shiga Tox PCR Not detected (Not Detect) St Sh/Enteroin Ecoli PCR Not detected (Not Detect) Stool E coli O157 PCR Not Reportable Stl Enterotoxigenic E PCR Not detected (Not Detect) Stool EPEC (PCR) Not detected (Not Detect) Stl E. histolytica PCR Not detected (Not Detect) Stool Giardia Lamblia PCR Not detected (Not Detect) Stool Sapovirus (PCR) Not detected (Not Detect) Stl P. shigelloides PCR Not detected (Not Detect) St Y.enterocolitica PCR Not detected (Not Detect) Stool Vibrio (PCR) Not detected (Not Detect) Stl Vibrio cholerae PCR Not detected (Not Detect) Stl Enteroaggr Ecoli PCR Not detected (Not Detect) Stl Norovirus GI/GII PCR Not detected (Not Detect) Campylobacter (PCR) Not detected (Not Detect) C. difficile Tox (PCR) Not detected (Not Detect) Salmonella (PCR) Not detected (Not Detect) Blood Type O Negative Antibody Screen Negative 03/05/20 Range/Units 10:45 WBC (4.5-11.0) X10^3/uL RBC (4.0-5.2) X10^6/uL Hgb (12.0-16.0) g/dL Hct (36-46) % MCV (80-100) fL MCH (26-34) PG MCHC (30-36) % RDW (11.6-14.8) % Plt Count (150-400) X10^3/uL Neut % (Auto) (50-75) % Lymph % (Auto) (25-40) % [place] % (Auto) (3-14) % Eos % (Auto) (2-4) % Baso % (Auto) (0-2) % Neut # (Auto) (4782-4709) /uL Lymph # (Auto) (1745-8890) /uL [place] # (Auto) (0-900) /uL Eos # (Auto) (0-450) /uL Baso # (Auto) (0-100) /uL PT (10.1-12.7) SECONDS INR (0.9-1.3) APTT (26.4-36.2) SECONDS Sodium (137-145) mmol/L Potassium (3.4-5.1) mmol/L Chloride (98-107) mmol/L Carbon Dioxide (22-32) mmol/L BUN (7-17) mg/dL Creatinine (0.52-1.04) mg/dL Estimated GFR (>60) mL/min BUN/Creatinine Ratio (6-22) Glucose (70-100) mg/dL Lactate 1.6 (0.7-2.1) mmol/L Calcium (8.4-10.2) mg/dL Total Bilirubin (0.2-1.3) mg/dL AST (14-36) IU/L ALT (<35) IU/L Alkaline Phosphatase (38-126) U/L Total Protein (6.3-8.2) g/dL Albumin (3.5-5.0) g/dL Globulin (1.7-4.1) g/dL Albumin/Globulin Ratio (1.0-2.8) Stl C. cayetanensis PCR (Not Detect) Stool Rotavirus (PCR) (Not Detect) Stool Adenovirus (PCR) (Not Detect) Stool Astrovirus (PCR) (Not Detect) Stool Cryptosporidium PCR (Not Detect) Stl E.coli Shiga Tox PCR (Not Detect) St Sh/Enteroin Ecoli PCR (Not Detect) Stool E coli O157 PCR Stl Enterotoxigenic E PCR (Not Detect) Stool EPEC (PCR) (Not Detect) Stl E. histolytica PCR (Not Detect) Stool Giardia Lamblia PCR (Not Detect) Stool Sapovirus (PCR) (Not Detect) Stl P. shigelloides PCR (Not Detect) St Y.enterocolitica PCR (Not Detect) Stool Vibrio (PCR) (Not Detect) Stl Vibrio cholerae PCR (Not Detect) Stl Enteroaggr Ecoli PCR (Not Detect) Stl Norovirus GI/GII PCR (Not Detect) Campylobacter (PCR) (Not Detect) C. difficile Tox (PCR) (Not Detect) Salmonella (PCR) (Not Detect) Blood Type Antibody Screen Point of care testing: Point of Care Testing Stool Occult Blood Positive Imaging Data CT scan - abdomen/pelvis: Radiologist's Impression: PROCEDURE: CT ABDOMEN PELVIS W CON INDICATIONS: pain vomiting diarrhea TECHNIQUE: After the administration of intravenous contrast, 5 mm thick sections acquired from the diaphragm to the symphysis. 5 mm coronal and sagittal reformats were acquired. For radiation dose reduction, the following was used: automated exposure control, adjustment of mA and/or kV according to patient size. COMPARISON: Located Within [facility], CT, ABDOMEN/PELVIS WITH CONTRAST, 04/24/2017, 21:11. FINDINGS: Image quality: Excellent. ABDOMEN: Lung bases: Lung bases are clear. Heart size is normal. There is a new, 9 mm transverse by 13 mm anteroposterior paraspinous nodule within the left posterior periaortic location. Solid organs: Liver is shrunken and demonstrates a nodular contour. There is irregular low density within the right hepatic lobe inferiorly, associated with possible architectural distortion measuring roughly 75 mm. Gallbladder is surgically absent . Biliary system is non dilated. Pancreas enhances normally. Spleen is normal in size and enhancement. No adrenal nodules. Kidneys demonstrate normal size and enhancement, without hydronephrosis. There is a nonobstructing calculus within the superior pole left kidney measuring 5 mm. Peritoneum and bowel: Moderate hiatal hernia. There is moderate diffuse thickening of multiple small bowel loops, predominantly involving the proximal jejunum within the left hemiabdomen. There is severe diffuse thickening of the colon. Scattered regions of mesenteric edema and fluid are present. No loculated fluid collections to indicate abscess. No bowel dilatation. No pneumoperitoneum. There is a moderate amount of ascites. Nodes and vessels: No retroperitoneal or mesenteric adenopathy by size criteria. Aorta and inferior vena cava are normal in size. Recanalized umbilical vein. Miscellaneous: No ventral hernias. PELVIS: Genitourinary: Bladder wall thickness is normal. Miscellaneous: No inguinal hernias or adenopathy. Bones: No suspicious bony lesions. No vertebral body compression fractures. IMPRESSION: 1. Cirrhosis and portal hypertension, associated with moderate ascites. 2. Small and large bowel thickening as described above. Differential considerations include gastroenteritis and/or sequelae of portal venous congestion . 3. Indeterminate hypodense region within the right hepatic lobe. Nonemergent liver protocol MRI with and without intravenous contrast is recommended to assess for neoplasm. 4. Posteroinferior mediastinal/para-aortic soft tissue density nodule, suggestive of adenopathy. Differential considerations include reactive adenopathy versus metastatic disease versus lymphoma. Attention to this region on follow-up imaging studies is recommended to exclude developing neoplasm. 5. Nonobstructing left renal calculus. 6. Hiatal hernia. Dictated by: Ritu Sousa M.D. on 03/05/2020 at 9:31 ECG Data Attestation: I personally reviewed and interpreted this ECG as follows: Prior ECG tracings: available for review Interpretation: Normal sinus rhythm rate 87 p.r. interval 175 QRS [address] changes similar to previous EKG MDM Narrative Medical decision making narrative: Patient is hemodynamically stable hemoglobin hematocrit are relatively the same without change. She remains hypokalemic. Abdominal CT does show ascites. She is tolerating oral fluids without any difficulty. She is guaiac positive and scheduled for an outpatient colonoscopy in 2 days. At this time after discussing with surgery she can continue as scheduled and definitely needs a colonoscopy and certainly not an emergent. Discharge Plan Departure Patient Disposition: Home Clinical Impression: Hypokalemia Gastritis Qualifiers: Gastritis type: alcoholic Chronicity: acute Gastritis bleeding: with bleeding Qualified Code(s): K29.21 - Alcoholic gastritis with bleeding Discharge Date/Time: 03/05/20 11:32 Instructions: DI for Gastritis Activity Restrictions/Additional Instructions: *You have been diagnosed with gastritis and low potassium *What to do: I have touched base with surgery. Please continue your colonoscopy prep as scheduled. *Continue to take medications as directed -Zofran 4 mg every 8 hours if needed for nausea or vomiting -- *Follow up with your primary care provider in 2-3 days *Return to ER if you should have inability to tolerate fluids, increased pain or fever or any new, worsening or concerning symptoms Prescriptions: No Action lorazepam 1 mg tablet 1 mg PO BEDTIME Qty: 30 RF: 3 verapamil 180 mg tablet extended release 180 mg PO DAILY Qty: 30 RF: 6 Vitamin B12 See Rx Instructions .ROUTE .COMPLEX RF: 0 promethazine 25 mg tablet 25 mg PO Q6H PRN (Reason: nausea and vomiting) Qty: 60 RF: 0 ondansetron 4 mg tablet,disintegrating 4 mg PO Q6H PRN (Reason: nausea and vomiting) Qty: 10 RF: 0 Referrals: Sanjuana Sommer ARNP [Primary Care Provider] - Radha Awan MD [Physician] -
[2020-03-05 08:25] LABS: Add Manual Diff / Slide Review NO; Basophils Absolute Auto 0 /uL (0-100); Basophils Percent Auto 0.2 % (0-2); Eosinophils Absolute Auto 0 /uL (0-450); Eosinophils Percent Auto 0.2 % (2-4); Hemoglobin 11.1 g/dL (12.0-16.0); Lymphocytes Absolute Auto 2000 /uL (1100-4500); Lymphocytes Percent Auto 22.6 % (25-40); Mean Corpuscular HGB Conc 34.6 % (30-36); Mean Corpuscular Hemoglobin 36.7 PG (26-34); Mean Corpuscular Volume 106.2 fL (80-100); Monocytes Absolute Auto 700 /uL (0-900); Neutrophils Absolute Auto 6200 /uL (1500-7000); Platelet Count 154 X10^3/uL (150-400); Red Blood Cell Count 3.02 X10^6/uL (4.0-5.2); Red Cell Distribution Width 18.4 % (11.6-14.8)
[2020-03-05 08:33] LABS: INR 1.7 (0.9-1.3)
--- NOTE | 2020-03-05 08:34 | PC.NURSE ---
pt states heavy bleeding from rectum this AM approx 0300
[2020-03-05 08:36] LABS: PTT Partial Thromboplastin Tim 37 SECONDS (26.4-36.2)
[2020-03-05 08:37] LABS: Lactate (Lactic Acid) 2.6 mmol/L (0.7-2.1)
--- NOTE | 2020-03-05 08:37 | DI.CT.S_ITS ---
PROCEDURE: CT ABDOMEN PELVIS W CON INDICATIONS: pain vomiting diarrhea TECHNIQUE: After the administration of intravenous contrast, 5 mm thick sections acquired from the diaphragm to the symphysis. 5 mm coronal and sagittal reformats were acquired. For radiation dose reduction, the following was used: automated exposure control, adjustment of mA and/or kV according to patient size. COMPARISON: [facility], CT, ABDOMEN/PELVIS WITH CONTRAST, 04/24/2017, 21:11. FINDINGS: Image quality: Excellent. ABDOMEN: Lung bases: Lung bases are clear. Heart size is normal. There is a new, 9 mm transverse by 13 mm anteroposterior paraspinous nodule within the left posterior periaortic location. Solid organs: Liver is shrunken and demonstrates a nodular contour. There is irregular low density within the right hepatic lobe inferiorly, associated with possible architectural distortion measuring roughly 75 mm. Gallbladder is surgically absent . Biliary system is non dilated. Pancreas enhances normally. Spleen is normal in size and enhancement. No adrenal nodules. Kidneys demonstrate normal size and enhancement, without hydronephrosis. There is a nonobstructing calculus within the superior pole left kidney measuring 5 mm. Peritoneum and bowel: Moderate hiatal hernia. There is moderate diffuse thickening of multiple small bowel loops, predominantly involving the proximal jejunum within the left hemiabdomen. There is severe diffuse thickening of the colon. Scattered regions of mesenteric edema and fluid are present. No loculated fluid collections to indicate abscess. No bowel dilatation. No pneumoperitoneum. There is a moderate amount of ascites. Nodes and vessels: No retroperitoneal or mesenteric adenopathy by size criteria. Aorta and inferior vena cava are normal in size. Recanalized umbilical vein. Miscellaneous: No ventral hernias. PELVIS: Genitourinary: Bladder wall thickness is normal. Miscellaneous: No inguinal hernias or adenopathy. Bones: No suspicious bony lesions. No vertebral body compression fractures. IMPRESSION: 1. Cirrhosis and portal hypertension, associated with moderate ascites. 2. Small and large bowel thickening as described above. Differential considerations include gastroenteritis and/or sequelae of portal venous congestion . 3. Indeterminate hypodense region within the right hepatic lobe. Nonemergent liver protocol MRI with and without intravenous contrast is recommended to assess for neoplasm. 4. Posteroinferior mediastinal/para-aortic soft tissue density nodule, suggestive of adenopathy. Differential considerations include reactive adenopathy versus metastatic disease versus lymphoma. Attention to this region on follow-up imaging studies is recommended to exclude developing neoplasm. 5. Nonobstructing left renal calculus. 6. Hiatal hernia. Dictated by: Ritu Sousa M.D. on 03/05/2020 at 9:31 Approved by: Ritu Sousa M.D. on 03/05/2020 at 9:37
[2020-03-05 08:38] LABS: Alanine Aminotransferase 12 IU/L (<35); Albumin 3.3 g/dL (3.5-5.0); Albumin Globulin Ratio 1.1 (1.0-2.8); Alkaline Phosphatase 113 U/L (38-126); Aspartate Aminotransferase 49 IU/L (14-36); BUN Creatinine Ratio 41.8 (6-22); Blood Urea Nitrogen 33 mg/dL (7-17); Calcium 8.1 mg/dL (8.4-10.2); Carbon Dioxide 25 mmol/L (22-32); Chloride 107 mmol/L (98-107); Estimated Glomerular Filt Rate > 60.0 mL/min (>60); Glucose 129 mg/dL (70-100); HEMOLYSIS < 15 (0-50); Sodium 141 mmol/L (137-145); Total Protein 6.3 g/dL (6.3-8.2)
[2020-03-05] MEDS: PANTOPRAZOLE 40 MG VIAL IV (08:44)
[2020-03-05] MEDS: SODIUM CHLORIDE 0.9% 1,000 ML 150 ML IV (08:44)
[2020-03-05] MEDS: ONDANSETRON 4 MG/2 ML INJ IV (08:45)
[2020-03-05 10:25] LABS: Reflexed Lactate in 2 Hours Y
[2020-03-05 11:07] LABS: Lactate 2HR (Lactic Acid Rflx) 1.6 mmol/L (0.7-2.1)
[2020-03-05] MEDS: POTASSIUM CHLORIDE 20 MEQ TAB 40 MEQ PO (11:14)
[2020-03-05 11:28] LABS: Adenovirus F 40/41 Not Detected (Not Detect); Astrovirus Not Detected (Not Detect); Campylobacter Not Detected (Not Detect); Clostridium difficile toxin AB Not Detected (Not Detect); Cryptosporidium Not Detected (Not Detect); Cyclospora cayetanensis Not Detected (Not Detect); Entamoeba histolytica Not Detected (Not Detect); Enteroaggregative E.coli Not Detected (Not Detect); Enteropathogenic E.coli Not Detected (Not Detect); Enterotoxigenic E.coli It/st Not Detected (Not Detect); Giardia lamblia Not Detected (Not Detect); Norovirus GI/GII Not Detected (Not Detect); Plesiomonsa shigelloides Not Detected (Not Detect); Rotavirus A Not Detected (Not Detect); Salmonella Not Detected (Not Detect); Sapovirus Not Detected (Not Detect); Shiga-like toxin-prod E.coli Not Detected (Not Detect); Shigella/Enteroinvasive E.coli Not Detected (Not Detect); Vibrio Not Detected (Not Detect); Vibrio cholerae Not Detected (Not Detect); Yersinia enterocolitica Not Detected (Not Detect)
== END 2020-03-05 11:32 | disposition home or self-care (01) ==
PROVIDERS: Emergency Provider Emergency Medicine; PCP Nurse Practitioner Family
DX: E87.6 Hypokalemia (principal); F10.10 Alcohol abuse, uncomplicated; K29.21 Alcoholic gastritis with bleeding
CPT/HCPCS: 36415; 74177; 80053; 82272; 83605; 85025; 85610; 85730; 86850; 86900; 86901; 87507; 93005; 96361; 96374; 96375; 99284; C9113; J2405

== ENCOUNTER 2020-03-07 10:42 | Day surgery (SDC) | payer OTHER, MEDICAID, SELFPAY ==
[2020-03-07] VITALS (7 sets, daily range): BP systolic 92–123; BP diastolic 57–74; PULSE 62–87; RESP 13–19; TEMP 36.7–36.9; O2SAT 91–99; BMI 27.7
[2020-03-07] MEDS: LACTATED RINGERS 1,000 ML 42 ML IV (11:15)
[2020-03-07 11:24] LABS: Add Manual Diff / Slide Review NO; Basophils Absolute Auto 100 /uL (0-100); Basophils Percent Auto 1.1 % (0-2); Eosinophils Absolute Auto 0 /uL (0-450); Eosinophils Percent Auto 0.7 % (2-4); Hematocrit 27.8 % (36-46); Hemoglobin 9.6 g/dL (12.0-16.0); Lymphocytes Absolute Auto 1200 /uL (1100-4500); Lymphocytes Percent Auto 23.9 % (25-40); Mean Corpuscular HGB Conc 34.6 % (30-36); Mean Corpuscular Hemoglobin 37.6 PG (26-34); Mean Corpuscular Volume 108.4 fL (80-100); Monocytes Absolute Auto 400 /uL (0-900); Monocytes Percent Auto 9.1 % (3-14); Neutrophils Absolute Auto 3200 /uL (1500-7000); Neutrophils Percent Auto 65.2 % (50-75); Platelet Count 119 X10^3/uL (150-400); Red Blood Cell Count 2.57 X10^6/uL (4.0-5.2); Red Cell Distribution Width 19.9 % (11.6-14.8); White Blood Cell Count 4.8 X10^3/uL (4.5-11.0)
[2020-03-07 11:38] LABS: Alanine Aminotransferase 12 IU/L (<35); Albumin 3.3 g/dL (3.5-5.0); Albumin Globulin Ratio 1.1 (1.0-2.8); Alkaline Phosphatase 109 U/L (38-126); Aspartate Aminotransferase 60 IU/L (14-36); BUN Creatinine Ratio 25.7 (6-22); Bilirubin Total 2.5 mg/dL (0.2-1.3); Blood Urea Nitrogen 18 mg/dL (7-17); Carbon Dioxide 26 mmol/L (22-32); Chloride 106 mmol/L (98-107); Estimated Glomerular Filt Rate > 60.0 mL/min (>60); Globulin 3.1 g/dL (1.7-4.1); Glucose 116 mg/dL (70-100); HEMOLYSIS 38 (0-50); Potassium 2.8 mmol/L (3.4-5.1); Sodium 141 mmol/L (137-145); Total Protein 6.4 g/dL (6.3-8.2)
--- NOTE | 2020-03-07 11:49 | PM.PREOP ---
Pre-operative Note COVID-19 COVID-19 status: Negative Result date/Date tested (Pos, Neg/Pending): 03/04/20 Interval Note History & Physical reviewed/Exam performed by Physician: Yes Changes to H&P: No
--- NOTE | 2020-03-07 11:51 | SUR.PREOP ---
POC INR = 1.4. Labs drawn - Potassium = 2.8. Dr Forrester notified. No further orders.
--- NOTE | 2020-03-07 12:23 | PM.OP.ENDO ---
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 A time-out was performed and then the patient was given procedural sedation was given by the anesthesiologist. Once adequately sedated, the procedure was begun. A rectal exam was performed revealing moderate external hemorrhoids, without active bleeding or thrombosis. The colonoscope was then introduced to the rectum and advanced to the hepatic flexure. With multiple maneuvers were not able to past the hepatic flexure and reach the cecum. We repositioned the patient onto her back, we used the stiffener, and we used external pressure on the abdomen. It appeared that because of the patient's ascites were not able to get adequate counter pressure on the abdominal wall in order to help the scope around the hepatic flexure. Because of the patient's medical comorbidities, and friability of her colonic mucosa the risk was too great to continue trying these maneuvers that were not working. So the decision was made to conclude the procedure at the hepatic flexure. In the hepatic flexure and the rectum friable mucosa was seen and some arterial venous malformations which had stigmata of recent bleeding but were not actively bleeding at this time were seen. The scope was then retracted while rotating side to side and examining each mucosal fold. Other than the arteriovenous malformations that were seen in hepatic flexure, and friable rectum seen consistent with proctitis from the bowel prep, no other abnormalities were seen. At the conclusion of the procedure retroflexion was performed and small grade 2-3 internal hemorrhoids without stigmata of bleeding were seen. The scope was then withdrawn from the rectum the procedure was concluded. The patient tolerated the procedure well and was transferred to the PACU in stable condition. Scope withdrawal time: 10 Findings: internal hemorrhoids and other findings (Friable colonic mucosa, arterial venous malformation, tortuous colon) Specimen(s): none sent Complications: none Impression: The patient has a very tortuous colon, and very friable colonic mucosa. She did have some abnormalities on the mucosa that appeared like arteriovenous malformations. Post-procedure Recommendations: Other recommendation (Follow-up in the office to discuss imaging studies to help rule out abnormalities in the part of the colon that was not visualized on today's exam.) Follow up: weeks (1-2 weeks) Disposition: PACU
--- NOTE | 2020-03-07 13:06 | SUR.PHASEII ---
Pt dcd via wc in stable condition denying any pain or nausea and drinking her 3rd apple juice to private vehicle by alessandro Valerio at [facility]
== END 2020-03-07 13:07 | disposition home or self-care (01) ==
PROVIDERS: PCP Nurse Practitioner Family; Referring Provider Nurse Practitioner Family; Visit Provider Surgery
PROC: 0DJD8ZZ Inspection of Lower Intestinal Tract, Via Natural or Artificial Opening Endoscopic (ICD-10-PCS; CPT 45378; principal; 2020-03-07 12:45)
DX: R19.5 Other fecal abnormalities (principal); I10 Essential (primary) hypertension; F17.210 Nicotine dependence, cigarettes, uncomplicated; K64.1 Second degree hemorrhoids; Q27.33 Arteriovenous malformation of digestive system vessel
CPT/HCPCS: 45378; 36415; 80053; 85025; J2250; J2405; J2704; J3010

== ENCOUNTER 2020-03-12 16:03 | Emergency (ER) | payer OTHER, MEDICAID, SELFPAY ==
[2020-03-12] VITALS (7 sets, daily range): BP systolic 115–134; BP diastolic 60–70; PULSE 64–73; RESP 16–20; TEMP 36.1; O2SAT 97–100
[2020-03-12 16:42] LABS: Add Manual Diff / Slide Review NO; Basophils Absolute Auto 100 /uL (0-100); Basophils Percent Auto 1.1 % (0-2); Eosinophils Absolute Auto 0 /uL (0-450); Eosinophils Percent Auto 0.2 % (2-4); Hematocrit 31.2 % (36-46); Hemoglobin 10.6 g/dL (12.0-16.0); Lymphocytes Absolute Auto 700 /uL (1100-4500); Mean Corpuscular HGB Conc 33.8 % (30-36); Mean Corpuscular Hemoglobin 35.8 PG (26-34); Monocytes Absolute Auto 700 /uL (0-900); Monocytes Percent Auto 14.9 % (3-14); Neutrophils Absolute Auto 3200 /uL (1500-7000); Neutrophils Percent Auto 68.8 % (50-75); Platelet Count 152 X10^3/uL (150-400); Red Blood Cell Count 2.95 X10^6/uL (4.0-5.2); Red Cell Distribution Width 18.6 % (11.6-14.8); White Blood Cell Count 4.7 X10^3/uL (4.5-11.0)
--- NOTE | 2020-03-12 16:44 | ED.ABDPAIN ---
HPI - Abdominal Pain General Chief Complaint: Abdominal Pain Stated Complaint: STOMACH BLOATING Time Seen by Provider: 03/12/20 16:25 Source: patient Mode of arrival: Ambulatory Limitations: no limitations History of Present Illness HPI narrative: Patient is a 59-year-old female with history of alcohol abuse, cirrhosis and gastritis. She was actually seen in the ED with gastritis and had a colonoscopy last week. She now presents today with abdominal swelling and bloating. She denies any fever or chills no nausea vomiting or diarrhea. She says it just came on suddenly and this is never happened to her and the past. Related Data Home Medications Medication Instructions Recorded Confirmed Vitamin B12 See Rx Instructions .ROUTE .COMPLEX 03/08/19 03/12/20 Previous Rx's Medication Instructions Recorded lorazepam 1 mg tablet 1 mg PO BEDTIME #30 tab 08/12/19 verapamil 180 mg tablet,extended 180 mg PO DAILY #30 tab 08/12/19 release Allergies Allergy/AdvReac Type Severity Reaction Status Date / Time Penicillins [PENICILLINS] Allergy Mild RASH Verified 03/12/20 15:27 lisinopril [LISINOPRIL] AdvReac Intermediate Nausea Verified 03/12/20 15:27 Redness of skin Review of Systems Review of Systems Narrative: GENERAL: Denies chills, fatigue, malaise, fever, sweats, travel HEENT: Denies sinus pain, ear pain, sore throat, difficulty swallowing, neck pain RESPIRATORY: Denies dyspnea, cough, wheezing, hemoptysis, sputum. CARDIOVASCULAR: Denies chest pain, palpitations, orthopnea, edema GASTROINTESTINAL: See HPI : Denies dysuria, frequency, incontinence, hematuria, urinary retention, flank pain. MUSCULOSKELETAL: Denies weakness, joint pain, or bony pain SKIN: No rash, no erythema, no pruritus NEUROLOGIC: Denies weakness, dizziness, headache, numbness, change in speech, confusion PSYCHIATRIC: No concerning psychosocial issues. 12 point review of systems is negative except for those stated above and HPI Patient History Medical History ETOH abuse (Acute) HTN (hypertension) (Acute) Nausea (Acute) Patient denies significant medical history (Acute) Surgical History Status post delivery Status post laparoscopic cholecystectomy (04/26/17) Family History Mother Cancer Gallstones Grandfather Heart disease Father Hypertension Prostate cancer Grandmother Breast cancer Family/Other Breast cancer Social History household members: children Smoking Status: Current every day smoker Tobacco: How many years used: 30 quit status: not considering quitting (Declined cessation handout) second hand exposure: No alcohol intake: current substance use type: does not use Smoking Status: Current every day smoker alcohol intake frequency: a few times a week Substance Use Type: does not use Exam Initial Vital Signs Initial Vital Signs: Vital Signs Temperature 97.0 F L 03/12/20 16:13 Pulse Rate 73 03/12/20 16:13 Respiratory Rate 18 03/12/20 16:13 Blood Pressure 134/64 03/12/20 16:13 Pulse Oximetry 100 03/12/20 16:13 GENERAL: Well-appearing, well-nourished and in no acute distress. HEENT: Head atraumatic,EOMI, pupils reactive CARDIOVASCULAR: Regular rate and rhythm without murmurs, rubs or gallops. RESPIRATORY: Breath sounds equal bilaterally, no wheezes rales or rhonchi. ABDOMEN: Soft, abdomen distended positive fluid wave nontender normal bowel sounds EXTREMITIES: Normal range of motion, no clubbing or edema. Neurovascularly intact NEUROLOGICAL: Alert and oriented x4.Normal gait and speech. SKIN: Warm, dry, no laceration, no petechiae, no rashes or lesions. Procedures Laceration Repair Laceration 1: Site: other (Abdomen paracentesis site) Side (If applicable): right Size (cm): 1 Description: linear Depth: simple, single layer Skin layer closed with: nylon Size (cm): 4-0 Number of sutures: 1 Paracentesis Time Out Performed: Yes Local Anesthetic: lidocaine 1% Amount of anesthesia used (mL): 5 Fluid: clear (2 L removed) and sent to lab for analysis Post Procedure Exam: awake, alert, normal BP, normal HR and normal SpO2 Patient Tolerated Procedure: Well Complications: none Course Orders Ordered: ED Orders 03/12/20 16:30 Complete Blood Count AUTO DIFF Stat Comprehensive Metabolic Panel Stat Lactate Dehydrogenase Stat Lipase Stat Partial Thromboplastin Time Stat Prothrombin Time INR Stat 03/12/20 16:45 CT abdomen pelvis w con Stat US abdomen limited Stat 03/12/20 18:27 Albumin Body Fluid Stat Cell Count w Diff Body Fluid Stat Glucose Body Fluid Stat LDH Body Fluid Stat Total Protein Body Fluid Stat 03/12/20 18:51 Body Fluid Culture Stat Vital Signs Vital signs: Vital Signs - 8 hr 03/12/20 16:13 03/12/20 17:17 03/12/20 17:56 Temperature 97.0 F L Pulse Rate 73 64 66 Respiratory Rate 18 16 20 Blood Pressure 134/64 129/61 120/63 Pulse Oximetry 100 97 99 03/12/20 17:57 03/12/20 18:00 03/12/20 18:30 Temperature Pulse Rate 67 69 65 Respiratory Rate Blood Pressure 115/70 132/61 Pulse Oximetry 100 100 99 MDM - Abdominal Pain Lab Data Attestation: I reviewed the patient's lab results. Result diagrams: 03/12/20 16:30 03/12/20 16:30 Labs: Lab Results 03/12/20 03/12/20 03/12/20 Range/Units 16:30 16:30 16:30 WBC 4.7 (4.5-11.0) X10^3/uL RBC 2.95 L (4.0-5.2) X10^6/uL Hgb 10.6 L (12.0-16.0) g/dL Hct 31.2 L (36-46) % MCV 106.0 H (80-100) fL MCH 35.8 H (26-34) PG MCHC 33.8 (30-36) % RDW 18.6 H (11.6-14.8) % Plt Count 152 (150-400) X10^3/uL Neut % (Auto) 68.8 (50-75) % Lymph % (Auto) 15.0 L (25-40) % [place] % (Auto) 14.9 H (3-14) % Eos % (Auto) 0.2 L (2-4) % Baso % (Auto) 1.1 (0-2) % Neut # (Auto) 3200 (6334-3477) /uL Lymph # (Auto) 700 L (9386-1962) /uL [place] # (Auto) 700 (0-900) /uL Eos # (Auto) 0 (0-450) /uL Baso # (Auto) 100 (0-100) /uL PT 16.4 H (10.1-12.7) SECONDS INR 1.4 H (0.9-1.3) APTT 41 H D (26.4-36.2) SECONDS Sodium 135 L (137-145) mmol/L Potassium 3.1 L (3.4-5.1) mmol/L Chloride 101 (98-107) mmol/L Carbon Dioxide 27 (22-32) mmol/L BUN 7 (7-17) mg/dL Creatinine 0.62 (0.52-1.04) mg/dL Estimated GFR > 60.0 (>60) mL/min BUN/Creatinine Ratio 11.3 (6-22) Glucose 103 H (70-100) mg/dL Calcium 8.4 (8.4-10.2) mg/dL Total Bilirubin 3.5 H (0.2-1.3) mg/dL AST 46 H (14-36) IU/L ALT 9 (<35) IU/L Alkaline Phosphatase 127 H (38-126) U/L Lactate Dehydrogenase (313-618) U/L Total Protein 6.6 (6.3-8.2) g/dL Albumin 3.3 L (3.5-5.0) g/dL Globulin 3.3 (1.7-4.1) g/dL Albumin/Globulin Ratio 1.0 (1.0-2.8) Lipase 158 D (23-300) U/L Fluid RBC /uL Fld Tot Nucleated Cell /uL Fluid Glucose mg/dL Fluid Total Protein g/dL Fluid Albumin g/dL Fluid LDH U/L 03/12/20 03/12/20 Range/Units 16:30 18:27 WBC (4.5-11.0) X10^3/uL RBC (4.0-5.2) X10^6/uL Hgb (12.0-16.0) g/dL Hct (36-46) % MCV (80-100) fL MCH (26-34) PG MCHC (30-36) % RDW (11.6-14.8) % Plt Count (150-400) X10^3/uL Neut % (Auto) (50-75) % Lymph % (Auto) (25-40) % [place] % (Auto) (3-14) % Eos % (Auto) (2-4) % Baso % (Auto) (0-2) % Neut # (Auto) (0689-0123) /uL Lymph # (Auto) (8556-0663) /uL [place] # (Auto) (0-900) /uL Eos # (Auto) (0-450) /uL Baso # (Auto) (0-100) /uL PT (10.1-12.7) SECONDS INR (0.9-1.3) APTT (26.4-36.2) SECONDS Sodium (137-145) mmol/L Potassium (3.4-5.1) mmol/L Chloride (98-107) mmol/L Carbon Dioxide (22-32) mmol/L BUN (7-17) mg/dL Creatinine (0.52-1.04) mg/dL Estimated GFR (>60) mL/min BUN/Creatinine Ratio (6-22) Glucose (70-100) mg/dL Calcium (8.4-10.2) mg/dL Total Bilirubin (0.2-1.3) mg/dL AST (14-36) IU/L ALT (<35) IU/L Alkaline Phosphatase (38-126) U/L Lactate Dehydrogenase 482 (313-618) U/L Total Protein (6.3-8.2) g/dL Albumin (3.5-5.0) g/dL Globulin (1.7-4.1) g/dL Albumin/Globulin Ratio (1.0-2.8) Lipase (23-300) U/L Fluid RBC < 1000 /uL Fld Tot Nucleated Cell 135 /uL Fluid Glucose 96 mg/dL Fluid Total Protein < 2.0 g/dL Fluid Albumin < 1.0 g/dL Fluid LDH 127 U/L Imaging Data CT scan - abdomen/pelvis: Radiologist's Impression: PROCEDURE: CT ABDOMEN PELVIS W CON INDICATIONS: ab swelling after colonoscopy + liver failure TECHNIQUE: After the administration of intravenous contrast, 5 mm thick sections acquired from the diaphragm to the symphysis. 5 mm coronal and sagittal reformats were acquired. For radiation dose reduction, the following was used: automated exposure control, adjustment of mA and/or kV according to patient size. COMPARISON: [facility], CT, CT ABDOMEN PELVIS W CON, 03/05/2020, 8:35. FINDINGS: Image quality: Excellent. ABDOMEN: Lung bases: Lung bases are clear. Heart size is normal. Soft tissue density focus at the posterior aspect of the descending thoracic aorta measuring 13 mm is not significantly changed. Solid organs: Liver demonstrates a nodular contour, as before. Ill-defined low density within the right hepatic lobe anteroinferiorly is unchanged. Gallbladder is surgically absent . Biliary system is non dilated. Pancreas enhances normally. Spleen is enlarged. No adrenal nodules. Kidneys demonstrate normal size and enhancement, without hydronephrosis. Nonobstructing 4 mm calculus within the left kidney is unchanged. Peritoneum and bowel: Small hiatal hernia is present, as before. No significant change in small and large bowel thickening. No pneumoperitoneum. Moderate ascites is present, as before. Nodes and vessels: No retroperitoneal or mesenteric adenopathy by size criteria. Aorta and inferior vena cava are normal in size. Miscellaneous: No ventral hernias. PELVIS: Genitourinary: Bladder wall thickness is normal. Miscellaneous: No inguinal hernias or adenopathy. Bones: No suspicious bony lesions. No vertebral body compression fractures. IMPRESSION: 1. No significant change in cirrhosis and portal hypertension associated with moderate ascites. 2. No significant change in small and large bowel thickening, with differential considerations including gastroenteritis and/or sequelae of portal venous congestion. 3. No change in hypodense focus within the right hepatic lobe; nonemergent liver protocol MRI with and without intravenous contrast is recommended to assess for neoplasm. 4. No change in posterior inferior mediastinal/para-aortic soft tissue density nodule, suggestive of adenopathy. 5. No change in nonobstructing left renal calculus. 6. No change in hiatal hernia. Dictated by: Ritu Sousa M.D. on 03/12/2020 at 17:01 Approved by: Ritu Sousa M.D. on 03/12/2020 at 17:05 US - abdomen: Radiologist's Impression: PROCEDURE: US ABDOMEN LIMITED INDICATIONS: Jn for ascites drainage TECHNIQUE: Real-time scanning was performed of the abdominal and retroperitoneal organs, with image documentation. COMPARISON: [facility], US, ABDOMEN LIMITED, 02/10/2012, 14:17. FINDINGS: Limited ultrasound of the abdomen was performed. The appropriate cutaneous site for paracentesis was marked for the referring clinician. IMPRESSION: Ultrasound marking for paracentesis. Dictated by: Ritu Sousa M.D. on 03/12/2020 at 18:37 MDM Narrative Medical decision making narrative: Patient had 2 L removed without any difficulty. Blood pressure remains stable SAAG=3.3 suggestive of portal hypertension, ascitic fluid protein is less than 30 also suggestive of liver cirrhosis. The patient did require 1 suture to help with leakage after the procedure. Patient tolerated procedure well. At this time I recommend that she have a GI specialist referral, I suspect she will need more frequent paracentesis. Discharge Plan Departure Patient Disposition: Home Clinical Impression: Ascites Qualifiers: Ascites type: due to alcoholic cirrhosis Qualified Code(s): K70.31 - Alcoholic cirrhosis of liver with ascites Instructions: Abdominal Paracentesis Activity Restrictions/Additional Instructions: *You have been diagnosed with ascites *What to do: This fluid will reaccumulate. This is likely due to your liver failure progressing. Please talk with her primary care provider about possibly scheduling a regular drainage. You may also need to see GI specialist Please have your sutures removed in about 5-7 days. Keep area clean and dry with soap and water *Continue to take medications as directed *Follow up with your primary care provider in 2-3 days *Return to ER if you should have redness pus swelling pain fever or any new, worsening or concerning symptoms Prescriptions: No Action lorazepam 1 mg tablet 1 mg PO BEDTIME Qty: 30 RF: 3 verapamil 180 mg tablet extended release 180 mg PO DAILY Qty: 30 RF: 6 Vitamin B12 See Rx Instructions .ROUTE .COMPLEX RF: 0 Referrals: Sanjuana Sommer ARNP [Primary Care Provider] - Isidro Brunre ARNP [[employer]] -
--- NOTE | 2020-03-12 16:45 | DI.US.S_ITS ---
PROCEDURE: US ABDOMEN LIMITED INDICATIONS: Jn for ascites drainage TECHNIQUE: Real-time scanning was performed of the abdominal and retroperitoneal organs, with image documentation. COMPARISON: [facility], , ABDOMEN LIMITED, 02/10/2012, 14:17. FINDINGS: Limited ultrasound of the abdomen was performed. The appropriate cutaneous site for paracentesis was marked for the referring clinician. IMPRESSION: Ultrasound marking for paracentesis. Dictated by: Ritu Sousa M.D. on 03/12/2020 at 18:37 Approved by: Ritu Sousa M.D. on 03/12/2020 at 18:37
[2020-03-12 16:58] LABS: INR 1.4 (0.9-1.3); Prothrombin Time 16.4 SECONDS (10.1-12.7)
[2020-03-12 17:00] LABS: PTT Partial Thromboplastin Tim 41 SECONDS (26.4-36.2)
[2020-03-12 17:23] LABS: Alanine Aminotransferase 9 IU/L (<35); Albumin 3.3 g/dL (3.5-5.0); Alkaline Phosphatase 127 U/L (38-126); Aspartate Aminotransferase 46 IU/L (14-36); BUN Creatinine Ratio 11.3 (6-22); Bilirubin Total 3.5 mg/dL (0.2-1.3); Blood Urea Nitrogen 7 mg/dL (7-17); Calcium 8.4 mg/dL (8.4-10.2); Carbon Dioxide 27 mmol/L (22-32); Chloride 101 mmol/L (98-107); Estimated Glomerular Filt Rate > 60.0 mL/min (>60); Globulin 3.3 g/dL (1.7-4.1); Glucose 103 mg/dL (70-100); HEMOLYSIS < 15 (0-50); Lipase 158 U/L (23-300); Potassium 3.1 mmol/L (3.4-5.1); Sodium 135 mmol/L (137-145); Total Protein 6.6 g/dL (6.3-8.2)
[2020-03-12 18:51] LABS: Lactate Dehydrogenase 482 U/L (313-618)
[2020-03-12 18:55] LABS: Body Fluid Tot Nucleated Cells 135 /uL
[2020-03-12 18:59] LABS: Albumin Body Fluid < 1.0 g/dL; Body Fluid Red Blood Cells < 1000 /uL; Glucose Body Fluid 96 mg/dL; LDH Body Fluid 127 U/L; Total Protein Body Fluid < 2.0 g/dL
[2020-03-12 19:32] LABS: Body Fluid Appearance CLEAR; Body Fluid Clotted? NO CLOTS PRESENT; Body Fluid Color YELLOW; Eosinophils Body Fluid 0 %; Mononuclear WBC Body Fluid 87 %; Other Cells Body Fluid 12 %; Polynuclear WBC Body Fluid 1 %
== END 2020-03-12 19:17 | disposition home or self-care (01) ==
PROVIDERS: Emergency Provider Emergency Medicine; PCP Nurse Practitioner Family
DX: K70.31 Alcoholic cirrhosis of liver with ascites (principal)
CPT/HCPCS: 12001; 36415; 49082; 74177; 76705; 80053; 82042; 82945; 83615; 83690; 84157; 85025; 85610; 85730; 87070; 87075; 87205; 89051; 99284; Q9967

== ENCOUNTER 2020-03-22 14:43 | Emergency (ER) | payer OTHER, MEDICAID, SELFPAY ==
[2020-03-22] VITALS (7 sets, daily range): BP systolic 94–107; BP diastolic 54–61; PULSE 86–94; RESP 16–23; TEMP 36.9; O2SAT 95–100; BMI 28.2
[2020-03-22] MEDS: SODIUM CHLORIDE 0.9% 500 ML IV (15:29)
[2020-03-22] MEDS: METOCLOPRAMIDE 10 MG/2 ML INJ IV (15:29)
[2020-03-22 15:32] LABS: Add Manual Diff / Slide Review NO; Basophils Absolute Auto 100 /uL (0-100); Eosinophils Absolute Auto 0 /uL (0-450); Eosinophils Percent Auto 0.2 % (2-4); Hemoglobin 8.8 g/dL (12.0-16.0); Lymphocytes Absolute Auto 1100 /uL (1100-4500); Mean Corpuscular HGB Conc 32.4 % (30-36); Mean Corpuscular Hemoglobin 34.1 PG (26-34); Mean Corpuscular Volume 105.3 fL (80-100); Monocytes Absolute Auto 700 /uL (0-900); Monocytes Percent Auto 7.9 % (3-14); Neutrophils Absolute Auto 7300 /uL (1500-7000); Neutrophils Percent Auto 78.9 % (50-75); Platelet Count 272 X10^3/uL (150-400); Red Blood Cell Count 2.57 X10^6/uL (4.0-5.2); Red Cell Distribution Width 18.4 % (11.6-14.8); White Blood Cell Count 9.3 X10^3/uL (4.5-11.0)
--- NOTE | 2020-03-22 15:42 | ED.NAVMDI ---
HPI - Nausea/Vomiting/Diarrhea General Chief complaint: Dizziness Stated complaint: nausea,vomiting,feels lighthead, chills Time Seen by Provider: 03/22/20 15:06 Source: patient Mode of arrival: Wheelchair Limitations: no limitations History of Present Illness HPI Narrative: The patient is a 60-year-old female with history of cirrhosis presenting for nausea vomiting. She says she is unable to keep anything down she has been vomiting. She felt dizzy and lightheaded when she stands. She actually saw Dr. Hardin for follow-up after paracentesis. She is scheduled for repeat paracentesis next week and she has referral for GI. She denies any chest pain diaphoresis or diarrhea. She says that she does continue to have chills but she denies any fever. Related Data Home Medications Medication Instructions Recorded Confirmed Vitamin B12 See Rx Instructions .ROUTE .COMPLEX 03/08/19 03/14/20 Previous Rx's Medication Instructions Recorded lorazepam 1 mg tablet 1 mg PO BEDTIME #30 tab 08/12/19 buspirone 10 mg tablet 10 mg PO BID #60 tab 03/21/20 spironolactone 25 mg tablet 25 mg PO DAILY #90 tab 03/21/20 verapamil 120 mg 24 hr 120 mg PO DAILY #90 cap 03/21/20 capsule,extended release metoclopramide HCl 10 mg PO Q6H PRN #10 tab 03/22/20 Allergies Allergy/AdvReac Type Severity Reaction Status Date / Time Penicillins [PENICILLINS] Allergy Mild RASH Verified 03/14/20 09:36 lisinopril [LISINOPRIL] AdvReac Intermediate Nausea Verified 03/14/20 09:36 Redness of skin Review of Systems Review of Systems ROS Unobtainable: All systems reviewed & are unremarkable except as noted in HPI and below Constitutional Constitutional: Denies chills, Denies fever(s), Denies lethargy and Denies weakness ENT Ears, Nose, Mouth, and Throat: Reports dizziness Cardiovascular Cardiovascular: Denies chest pain, Denies irregular heart rhythm, Denies lightheadedness, Denies palpitations, Denies dyspnea, Denies dyspnea on exertion and Denies orthopnea Respiratory Respiratory: Denies cough, Denies dyspnea, Denies dyspnea on exertion and Denies wheezing Gastrointestinal Gastrointestinal: Reports as per HPI Integumentary/Breasts Skin/Breast: Denies pruritus, Denies erythema, Denies rash and Denies wounds Neurologic Neurologic: Reports as per HPI, Denies confusion, Reports dizziness, Denies memory loss and Denies weakness Psychiatric Psychiatric: Denies confusion and Denies memory loss Endocrine Endocrine: Denies palpitations Allergic/Immunologic Allergic/Immunologic: Denies wheezing Patient History Medical History (Updated 03/23/20 @ 03:39 by Polly Shearer MD) Alcoholic cirrhosis of liver with ascites (Acute) ETOH abuse (Acute) HTN (hypertension) (Acute) Liver lesion (Acute) Nausea (Acute) Patient denies significant medical history (Acute) Surgical History Status post delivery Status post laparoscopic cholecystectomy (04/26/17) Family History Mother Cancer Gallstones Grandfather Heart disease Father Hypertension Prostate cancer Grandmother Breast cancer Family/Other Breast cancer Social History household members: children Smoking Status: Current every day smoker Tobacco: How many years used: 30 quit status: not considering quitting (Declined cessation handout) second hand exposure: No alcohol intake: current substance use type: does not use Smoking Status: Current every day smoker alcohol intake frequency: a few times a week Substance Use Type: does not use Exam Initial Vital Signs Initial Vital Signs: Vital Signs Temperature 98.5 F 03/22/20 15:08 Pulse Rate 94 H 03/22/20 15:08 Respiratory Rate 22 03/22/20 15:08 Blood Pressure 94/58 L 03/22/20 15:08 Pulse Oximetry 100 03/22/20 15:08 GENERAL: Well-appearing, well-nourished and in no acute distress. HEENT: Head atraumatic,EOMI, pupils reactive, face symmetric, moist mucous membranes CARDIOVASCULAR: Regular rate and rhythm without murmurs, rubs or gallops. RESPIRATORY: Breath sounds equal bilaterally, no wheezes rales or rhonchi. ABDOMEN: Soft, distended positive fluid wave but soft nontender EXTREMITIES: Normal range of motion, no clubbing or edema. Neurovascularly intact NEUROLOGICAL: Alert and oriented x4.Normal gait and speech. SKIN: Warm, dry, no laceration, no petechiae, no rashes or lesions. Course Orders Ordered: Discontinued Medications Sodium Chloride (Normal Saline 0.9%) 500 mls @ 500 mls/hr IV BOLUS ONE Stop: 03/22/20 16:22 Last Infusion: 03/22/20 16:38 Dose: 0 mls/hr Documented by: Admin: 03/22/20 15:29 Dose: 500 mls/hr Documented by: GAMALIEL Metoclopramide HCl (Reglan) 10 mg IV NOW ONE Stop: 03/22/20 15:24 Last Admin: 03/22/20 15:29 Dose: 10 mg Documented by: GAMALIEL Vital Signs Vital signs: Vital Signs - 8 hr 03/22/20 15:08 03/22/20 16:12 03/22/20 16:30 Temperature 98.5 F Pulse Rate 94 H 93 H 92 H Respiratory Rate 22 18 19 Blood Pressure 94/58 L 98/54 L 101/59 L Pulse Oximetry 100 95 100 03/22/20 17:00 03/22/20 17:01 03/22/20 17:02 Temperature Pulse Rate 94 H 94 H Respiratory Rate 23 16 Blood Pressure 98/61 98/61 Pulse Oximetry 99 99 03/22/20 17:15 Temperature Pulse Rate 86 Respiratory Rate 19 Blood Pressure 107/60 Pulse Oximetry 98 MDM - Nausea/Vomiting/Diarrhea Lab Data Attestation: I reviewed the patient's lab results. Result diagrams: 03/22/20 15:23 03/22/20 15:23 Labs: Lab Results 03/22/20 03/22/20 Range/Units 15:23 15:23 WBC 9.3 (4.5-11.0) X10^3/uL RBC 2.57 L (4.0-5.2) X10^6/uL Hgb 8.8 L (12.0-16.0) g/dL Hct 27.0 L (36-46) % MCV 105.3 H (80-100) fL MCH 34.1 H (26-34) PG MCHC 32.4 (30-36) % RDW 18.4 H (11.6-14.8) % Plt Count 272 (150-400) X10^3/uL Neut % (Auto) 78.9 H (50-75) % Lymph % (Auto) 12.0 L (25-40) % [place] % (Auto) 7.9 (3-14) % Eos % (Auto) 0.2 L (2-4) % Baso % (Auto) 1.0 (0-2) % Neut # (Auto) 7300 H (5925-2804) /uL Lymph # (Auto) 1100 (7361-4026) /uL [place] # (Auto) 700 (0-900) /uL Eos # (Auto) 0 (0-450) /uL Baso # (Auto) 100 (0-100) /uL Sodium 140 (137-145) mmol/L Potassium 3.6 (3.4-5.1) mmol/L Chloride 104 (98-107) mmol/L Carbon Dioxide 31 (22-32) mmol/L BUN 31 H (7-17) mg/dL Creatinine 0.87 (0.52-1.04) mg/dL Estimated GFR > 60.0 (>60) mL/min BUN/Creatinine Ratio 35.6 H (6-22) Glucose 128 H (80-110) mg/dL Calcium 8.2 L (8.4-10.2) mg/dL Total Bilirubin 3.1 H (0.2-1.3) mg/dL AST 34 (14-36) IU/L ALT 10 (<35) IU/L Alkaline Phosphatase 98 (38-126) U/L Total Protein 5.9 L (6.3-8.2) g/dL Albumin 2.9 L (3.5-5.0) g/dL Globulin 3.0 (1.7-4.1) g/dL Albumin/Globulin Ratio 1.0 (1.0-2.8) Lipase 52 D (23-300) U/L Urine Dip Bedside Urine Glucose Negative Bedside Urine Bilirubin + 1 Bedside Urine Ketone +/- 5 Urine Specific [place] 1.025 Bedside Urine Occult Blood - Negative Bedside Urine pH 6.0 Bedside Urine Protein +/- 15 Bedside Urine Urobilinogen +/- 1mg Bedside Urine Nitrite - Negative Bedside Urine Leukocytes - Negative Esterase MDM Narrative Medical decision making narrative: Patient is slightly hypotensive with systolic in the 90s but responded well to 500 cc bolus. She had no active vomiting in the ED nausea improved significantly with Reglan. Hemoglobin 8.8 hematocrit 27 slightly lower than previous. Ambulatory in the ED without significant issue the tolerating oral fluids. Overall feels better. Has appointment with GI tomorrow. Discharge Plan Departure Patient Disposition: Home Clinical Impression: Nausea & vomiting Qualifiers: Vomiting type: unspecified Vomiting Intractability: non-intractable Qualified Code(s): R11.2 - Nausea with vomiting, unspecified Discharge Date/Time: 03/22/20 17:36 Instructions: Nausea and Vomiting-Adult Activity Restrictions/Additional Instructions: *You have been diagnosed with nausea and vomiting *What to do: Unclear what is making him nauseous. However I recommend you follow-up tomorrow with a GI see you can have drainage of the fluid. *Continue to take medications as directed--> [facility]ENT [facility] Reglan 10 mg every 8 hours if needed for nausea or vomiting *Follow up with your primary care provider in 2-3 days *Return to ER if you should have inability to tolerate fluids, increased pain, fever, dizziness, lightheadedness, passing or any new, worsening or concerning symptoms Prescriptions: New metoclopramide HCl 10 mg tablet 10 mg PO Q6H PRN (Reason: nausea and vomiting) Qty: 10 RF: 0 No Action lorazepam 1 mg tablet 1 mg PO BEDTIME Qty: 30 RF: 3 spironolactone 25 mg tablet 25 mg PO DAILY Qty: 90 RF: 1 verapamil 120 mg capsule,ext rel. pellets 24 hr 120 mg PO DAILY Qty: 90 RF: 1 buspirone 10 mg tablet 10 mg PO BID Qty: 60 RF: 2 Vitamin B12 See Rx Instructions .ROUTE .COMPLEX RF: 0 Referrals: Sanjuana Sommer ARNP [Primary Care Provider] -
[2020-03-22 15:49] LABS: Alanine Aminotransferase 10 IU/L (<35); Albumin 2.9 g/dL (3.5-5.0); Alkaline Phosphatase 98 U/L (38-126); Aspartate Aminotransferase 34 IU/L (14-36); BUN Creatinine Ratio 35.6 (6-22); Bilirubin Total 3.1 mg/dL (0.2-1.3); Blood Urea Nitrogen 31 mg/dL (7-17); Calcium 8.2 mg/dL (8.4-10.2); Carbon Dioxide 31 mmol/L (22-32); Chloride 104 mmol/L (98-107); Estimated Glomerular Filt Rate > 60.0 mL/min (>60); Glucose 128 mg/dL (80-110); HEMOLYSIS < 15 (0-50); Lipase 52 U/L (23-300); Potassium 3.6 mmol/L (3.4-5.1); Sodium 140 mmol/L (137-145); Total Protein 5.9 g/dL (6.3-8.2)
--- NOTE | 2020-03-22 17:00 | PC.NURSE ---
Patient given ice chips and tolerated. Stated feeling like dizziness and nausea both improved.
--- NOTE | 2020-03-22 17:07 | CM.SWNOTE ---
CHIEF SPECIALIST LEED note CHIEF SPECIALIST LEED consult requested for patient. Patient is a 60 y/o female who has presented to this ED 4 times in past 4 days for concerns related to N?V, fluid retention, and cirrhosis of liver. CHIEF SPECIALIST LEED enters room and speaks with patient. Patient's father is at bedside. Patient explains hx of alcohol use, and states she has been sober for roughly 3 weeks. Patient states she saw a new PCP yesterday and discussed concerns related to presenting concerns for today's ED visit, and states she felt optimistic and had scheduled an appt for fluid draining for tomorrow. Patient and father report that they have experienced signficant loss in the past year, and acknowledge that there may be an impact of stress on their health. CHIEF SPECIALIST LEED discusses formal counseling and patient and father decline discussion. Patient and father report signficant support through mandaeism. Patient requests to use bathroom and declines other needs at this time and CHIEF SPECIALIST LEED exits room, and offers support for family throughout stay here. Pl: Patient to continue with plan of care. COOPER Saini
== END 2020-03-22 17:36 | disposition home or self-care (01) ==
PROVIDERS: Emergency Provider Emergency Medicine; PCP Nurse Practitioner Family
DX: R11.2 Nausea with vomiting, unspecified (principal); R42 Dizziness and giddiness
CPT/HCPCS: 36415; 80053; 81003; 83690; 85025; 93005; 96361; 96374; 99284; J2765

== ENCOUNTER 2020-03-23 03:06 | Emergency (ER) | payer OTHER, MEDICAID, SELFPAY ==
[2020-03-23] VITALS (11 sets, daily range): BP systolic 90–119; BP diastolic 53–76; PULSE 80–98; RESP 16–28; TEMP 36.1–36.6; O2SAT 99; BMI 28.2
--- NOTE | 2020-03-23 02:57 | ED_ITS ---
HPI - GI Bleed General Chief complaint: GI Bleed Stated complaint: GI Bleed Time Seen by Provider: 03/23/20 03:15 History of Present Illness HPI Narrative: 60-year-old woman with a history of cirrhosis with ascites was seen yesterday with nausea and vomiting, complaining of dizziness and lightheadedness when she stood up and was sent to the emergency room after seeing her primary care physician in follow-up after paracentesis for her ascites. She is scheduled for repeat paracentesis next week and GI referral. H/H was 8/8 and 27. Around midnight tonight her symptoms became significantly worse. She noted moderate amount of black diarrhea as well as clots and black emesis. Medics were called and note approximately 250 cc bright red blood in the basin next to the toilet. Initial blood pressure was 70 systolic. She is dizzy, cold, complains that she feels like she is going to pass out and is still feeling nauseated. She complains of mild diffuse abdominal pain and easy bruising. She states her last alcoholic drink was 3 and half weeks ago. She reports no prior history of upper GI bleeding and does not believe she has ever had an endoscopy. Related Data Home Medications Medication Instructions Recorded Confirmed Vitamin B12 See Rx Instructions .ROUTE .COMPLEX 03/08/19 03/14/20 Previous Rx's Medication Instructions Recorded lorazepam 1 mg tablet 1 mg PO BEDTIME #30 tab 08/12/19 buspirone 10 mg tablet 10 mg PO BID #60 tab 03/21/20 spironolactone 25 mg tablet 25 mg PO DAILY #90 tab 03/21/20 verapamil 120 mg 24 hr 120 mg PO DAILY #90 cap 03/21/20 capsule,extended release metoclopramide HCl 10 mg PO Q6H PRN #10 tab 03/22/20 Allergies Allergy/AdvReac Type Severity Reaction Status Date / Time Penicillins [PENICILLINS] Allergy Mild RASH Verified 03/14/20 09:36 lisinopril [LISINOPRIL] AdvReac Intermediate Nausea Verified 03/14/20 09:36 Redness of skin Review of Systems Review of Systems Narrative: Pertinent positive and negative findings as per HPI Remainder of review of systems is otherwise unremarkable for Constitutional: Fevers, ENT: No sore throat, neck pain, ear pain CV: Chest pain, palpitations, Respiratory: Cough, wheeze, dyspnea : Dysuria, hematuria, flank pain MS: numbness, joint swelling or warmth Skin: Rashes, nonhealing lesions Patient History Medical History Alcoholic cirrhosis of liver with ascites (Acute) ETOH abuse (Acute) HTN (hypertension) (Acute) Liver lesion (Acute) Nausea (Acute) Patient denies significant medical history (Acute) Surgical History Status post delivery Status post laparoscopic cholecystectomy (04/26/17) Family History Mother Cancer Gallstones Grandfather Heart disease Father Hypertension Prostate cancer Grandmother Breast cancer Family/Other Breast cancer Social History household members: children Smoking Status: Current every day smoker Tobacco: How many years used: 30 quit status: not considering quitting (Declined cessation handout) second hand exposure: No alcohol intake: current substance use type: does not use Smoking Status: Current every day smoker alcohol intake frequency: a few times a week Substance Use Type: does not use Exam Narrative Exam Narrative: General: Significantly pale but alert and able to give a coherent history. Complains of nausea but no overt pain HEENT: Dry mucous membranes, mildly icteric sclera with reactive pupils, Neck: No JVD, supple Respiratory: Lungs are clear to auscultation, no wheezing no rales no rhonchi. Full and symmetrical air movement Cardiac: Tachycardic but Regular rate and rhythm no murmurs no bruits Abdomen: Ascites without significant distension, mild diffuse abdominal tenderness with hyperactive bowel tones. no flank pain Skin: Pale and cool, scattered telangiectasias and multiple bruises in various stages of healing. Neurologic: Globally weak but Grossly neurologically intact with no obvious asymmetries or abnormalities Extremities: No trauma, poor peripheral perfusion Psych: Cooperative, appropriate insight and affect Initial Vital Signs Initial Vital Signs: Vital Signs Temperature 97.5 F L 03/23/20 03:10 Pulse Rate 93 H 03/23/20 03:10 Respiratory Rate 22 03/23/20 03:10 Blood Pressure 90/53 L 03/23/20 03:10 Course Orders Ordered: ED Orders 03/23/20 03:00 Complete Blood Count AUTO DIFF Stat Comprehensive Metabolic Panel Stat Lipase Stat Partial Thromboplastin Time Stat Prothrombin Time INR Stat 03/23/20 03:02 Fresh Frozen Plasma Stat Packed Cells Stat Type and Screen Stat 03/23/20 03:40 Ammonia (NH3) Stat 03/23/20 03:50 COVID19 -ED/INPAT/OR/L&D Stat 03/23/20 05:55 Hemoglobin and Hematocrit Stat Pantoprazole Sodium 80 mg/ (Sodium Chloride) 100 mls @ 10 mls/hr IV CONT RUBY Last Admin: 03/23/20 04:35 Dose: 8 mg/hr, 10 mls/hr Documented by: LINDA Octreotide Acetate 500 mcg/ (Sodium Chloride) 101 mls @ 5.05 mls/hr IV CONT RUBY Last Admin: 03/23/20 03:50 Dose: 25 mcg/hr, 5.05 mls/hr Documented by: RONEL Ceftriaxone Sodium/Dextrose (Rocephin) 2 gm in 50 mls @ 100 mls/hr IV Q24H [facility] Last Infusion: 03/23/20 04:57 Dose: 0 mls/hr Documented by: Admin: 03/23/20 04:02 Dose: 100 mls/hr Documented by: LINDA Discontinued Medications Octreotide Acetate (Sandostatin) 50 mcg IV NOW ONE Stop: 03/23/20 02:59 Last Admin: 03/23/20 03:13 Dose: 50 mcg Documented by: RONEL Ondansetron HCl (Zofran) 4 mg IV NOW ONE Stop: 03/23/20 02:59 Last Admin: 03/23/20 03:14 Dose: 4 mg Documented by: RONEL Ondansetron HCl (Zofran) 4 mg IV NOW ONE Stop: 03/23/20 05:00 Last Admin: 03/23/20 05:03 Dose: 4 mg Documented by: LINDA Pantoprazole Sodium (Protonix) 40 mg IV NOW ONE Stop: 03/23/20 02:59 Last Admin: 03/23/20 03:13 Dose: 40 mg Documented by: RONEL Vital Signs Vital signs: Vital Signs - 8 hr 03/23/20 03:10 03/23/20 03:17 03/23/20 03:25 Temperature 97.5 F L 97.5 F L 97.4 F L Pulse Rate 93 H 98 H 94 H Respiratory Rate 22 17 28 H Blood Pressure 90/53 L 99/62 104/60 Pulse Oximetry 99 03/23/20 03:45 03/23/20 04:00 03/23/20 04:13 Temperature 97.2 F L 97.2 F L 97.1 F L Pulse Rate 90 83 82 Respiratory Rate 17 22 17 Blood Pressure 90/57 L 99/58 L 107/56 L Pulse Oximetry 03/23/20 04:19 03/23/20 04:42 03/23/20 05:25 Temperature 97.1 F L 97 F L 97.8 F Pulse Rate 81 81 83 Respiratory Rate 21 22 16 Blood Pressure 99/58 L 107/56 L 111/64 Pulse Oximetry 03/23/20 05:40 03/23/20 05:48 Temperature 97.9 F 98 F Pulse Rate 85 80 Respiratory Rate 18 16 Blood Pressure 118/75 119/76 Pulse Oximetry MDM - GI Bleed Medical Records Attestation: I reviewed the patient's medical records. Lab Data Attestation: I reviewed the patient's lab results. Result diagrams: 03/23/20 05:55 03/23/20 03:00 Labs: Lab Results 03/23/20 03/23/20 03/23/20 Range/Units 03:00 03:00 03:00 WBC 12.3 H (4.5-11.0) X10^3/uL RBC 2.22 L (4.0-5.2) X10^6/uL Hgb 7.5 L (12.0-16.0) g/dL Hct 23.6 L (36-46) % MCV 106.6 H (80-100) fL MCH 33.9 (26-34) PG MCHC 31.8 (30-36) % RDW 18.0 H (11.6-14.8) % Plt Count 300 (150-400) X10^3/uL Neut % (Auto) 78.8 H (50-75) % Lymph % (Auto) 13.6 L (25-40) % [place] % (Auto) 7.0 (3-14) % Eos % (Auto) 0.0 L (2-4) % Baso % (Auto) 0.6 (0-2) % Neut # (Auto) 9700 H (7676-0899) /uL Lymph # (Auto) 1700 (5885-2636) /uL [place] # (Auto) 900 (0-900) /uL Eos # (Auto) 0 (0-450) /uL Baso # (Auto) 100 (0-100) /uL PT 19.6 H (10.1-12.7) SECONDS INR 1.7 H (0.9-1.3) APTT 38 H D (26.4-36.2) SECONDS Sodium 141 (137-145) mmol/L Potassium 3.8 (3.4-5.1) mmol/L Chloride 105 (98-107) mmol/L Carbon Dioxide 27 (22-32) mmol/L BUN 46 H (7-17) mg/dL Creatinine 1.09 H (0.52-1.04) mg/dL Estimated GFR 51.2 L (>60) mL/min BUN/Creatinine Ratio 42.2 H (6-22) Glucose 126 H (80-110) mg/dL Calcium 8.3 L (8.4-10.2) mg/dL Total Bilirubin 4.4 H (0.2-1.3) mg/dL AST 33 (14-36) IU/L ALT 13 (<35) IU/L Alkaline Phosphatase 81 (38-126) U/L Ammonia (9-30) umol/L Total Protein 5.5 L (6.3-8.2) g/dL Albumin 2.6 L (3.5-5.0) g/dL Globulin 2.9 (1.7-4.1) g/dL Albumin/Globulin Ratio 0.9 L (1.0-2.8) Lipase 52 (23-300) U/L COVID-19 PCR (Negative) Blood Type Antibody Screen Crossmatch 03/23/20 03/23/20 03/23/20 Range/Units 03:00 03:02 03:40 WBC (4.5-11.0) X10^3/uL RBC (4.0-5.2) X10^6/uL Hgb (12.0-16.0) g/dL Hct (36-46) % MCV (80-100) fL MCH (26-34) PG MCHC (30-36) % RDW (11.6-14.8) % Plt Count (150-400) X10^3/uL Neut % (Auto) (50-75) % Lymph % (Auto) (25-40) % [place] % (Auto) (3-14) % Eos % (Auto) (2-4) % Baso % (Auto) (0-2) % Neut # (Auto) (9908-7269) /uL Lymph # (Auto) (6165-7934) /uL [place] # (Auto) (0-900) /uL Eos # (Auto) (0-450) /uL Baso # (Auto) (0-100) /uL PT (10.1-12.7) SECONDS INR (0.9-1.3) APTT (26.4-36.2) SECONDS Sodium (137-145) mmol/L Potassium (3.4-5.1) mmol/L Chloride (98-107) mmol/L Carbon Dioxide (22-32) mmol/L BUN (7-17) mg/dL Creatinine (0.52-1.04) mg/dL Estimated GFR (>60) mL/min BUN/Creatinine Ratio (6-22) Glucose (80-110) mg/dL Calcium (8.4-10.2) mg/dL Total Bilirubin (0.2-1.3) mg/dL AST (14-36) IU/L ALT (<35) IU/L Alkaline Phosphatase (38-126) U/L Ammonia 24 (9-30) umol/L Total Protein (6.3-8.2) g/dL Albumin (3.5-5.0) g/dL Globulin (1.7-4.1) g/dL Albumin/Globulin Ratio (1.0-2.8) Lipase (23-300) U/L COVID-19 PCR (Negative) Blood Type Cancelled O Negative Antibody Screen Cancelled Negative Crossmatch See Detail See Detail 03/23/20 03/23/20 Range/Units 03:50 05:55 WBC (4.5-11.0) X10^3/uL RBC (4.0-5.2) X10^6/uL Hgb 10.4 L (12.0-16.0) g/dL Hct 30.8 L (36-46) % MCV (80-100) fL MCH (26-34) PG MCHC (30-36) % RDW (11.6-14.8) % Plt Count (150-400) X10^3/uL Neut % (Auto) (50-75) % Lymph % (Auto) (25-40) % [place] % (Auto) (3-14) % Eos % (Auto) (2-4) % Baso % (Auto) (0-2) % Neut # (Auto) (9675-1258) /uL Lymph # (Auto) (0590-0667) /uL [place] # (Auto) (0-900) /uL Eos # (Auto) (0-450) /uL Baso # (Auto) (0-100) /uL PT (10.1-12.7) SECONDS INR (0.9-1.3) APTT (26.4-36.2) SECONDS Sodium (137-145) mmol/L Potassium (3.4-5.1) mmol/L Chloride (98-107) mmol/L Carbon Dioxide (22-32) mmol/L BUN (7-17) mg/dL Creatinine (0.52-1.04) mg/dL Estimated GFR (>60) mL/min BUN/Creatinine Ratio (6-22) Glucose (80-110) mg/dL Calcium (8.4-10.2) mg/dL Total Bilirubin (0.2-1.3) mg/dL AST (14-36) IU/L ALT (<35) IU/L Alkaline Phosphatase (38-126) U/L Ammonia (9-30) umol/L Total Protein (6.3-8.2) g/dL Albumin (3.5-5.0) g/dL Globulin (1.7-4.1) g/dL Albumin/Globulin Ratio (1.0-2.8) Lipase (23-300) U/L COVID-19 PCR Negative (Negative) Blood Type Antibody Screen Crossmatch [facility] Narrative Medical decision making narrative: 60-year-old woman with alcohol use disorder last drink 3 and half weeks ago with ascites, cirrhosis and presumed esophageal varices has been seen earlier today with some nausea and what she describes is coffee ground emesis. Was felt to be stable for discharge in outpatient follow- up. Around midnight began having obviously worsened symptoms with large volumes of emesis and diarrhea with melena starting. Initial blood pressures reported by medics with systolics in the 70s. She arrives with 2 large-bore peripheral IVs in place. Initial blood pressure in the emergency department was 95/60 and drops to 90/55 with the next reading. 2 units of uncross match blood are immediately available and fluid resuscitation is initiated. Labs are sent. Patient is started on octreotide, omeprazole and a dose of ceftriaxone is given. 3:25 150cc red blood/clot emesis. H/h returns 7.5/23.6 from 8/8/27.0 12 hours ago and no fluid resuscitation. 2 crossmatched units of blood are ordered. pt was 19.6 and ptt was 38. I unit FFP also ordered. 3:35 Dr Ang, general surgery, called. Recommends transfer to facility with GI available. 3:40 CCU bed available at [facility] at 7am. Dr Han is nonprofit manager GI. Care is reviewed with him, he agrees to consult. 4:05 Dr Posadas, accepts admit. Transport arranged to time arrival for shortly after 7am 5:20 still significantly nauseated suspect they are still quite a bit of blood and her stomach. She is on her 4th unit of packed red blood cells and heart rate has come down to the upper 80s and blood pressure has come up to 115/71. S he has not had any additional bowel movements since being in the emergency department. 615 h/h from 7.5/23.6 to 10//30.8 after 4 units packed cells and FFP. Transport is here. She is currently hemodynamically stable and safe for transport. Covid screen was neg. Critical Care Time Critical Care Time Critical Care Time: Yes Total Critical Care Time: 42 Attestation: Critical care time is separate from other billable procedures. This critical care time includes consultation with family and other consulting doctors, review of records, and interpretation of data from labs, EKGs and imaging as well as managements of acute upper GI bleed and shock related to severe acute blood loss. Discharge Plan Departure Patient Disposition: [facility] Clinical Impression: Acute upper gastrointestinal bleeding, Essential hypertension, Alcoholic cirrhosis of liver with ascites, Liver lesion Prescriptions: No Action lorazepam 1 mg tablet 1 mg PO BEDTIME Qty: 30 RF: 3 spironolactone 25 mg tablet 25 mg PO DAILY Qty: 90 RF: 1 verapamil 120 mg capsule,ext rel. pellets 24 hr 120 mg PO DAILY Qty: 90 RF: 1 buspirone 10 mg tablet 10 mg PO BID Qty: 60 RF: 2 Vitamin B12 See Rx Instructions .ROUTE .COMPLEX RF: 0 metoclopramide HCl 10 mg tablet 10 mg PO Q6H PRN (Reason: nausea and vomiting) Qty: 10 RF: 0 Referrals: Sanjuana Sommer ARNP [Primary Care Provider] -
[2020-03-23] MEDS: OCTREOTIDE 100 MCG/ML VIAL 50 MCG IV (03:13)
[2020-03-23] MEDS: PANTOPRAZOLE 40 MG VIAL IV (03:13)
[2020-03-23] MEDS: ONDANSETRON 4 MG/2 ML INJ IV ×2 (03:14→05:03)
[2020-03-23 03:17] LABS: Add Manual Diff / Slide Review NO; Basophils Absolute Auto 100 /uL (0-100); Basophils Percent Auto 0.6 % (0-2); Eosinophils Absolute Auto 0 /uL (0-450); Hematocrit 23.6 % (36-46); Hemoglobin 7.5 g/dL (12.0-16.0); Lymphocytes Absolute Auto 1700 /uL (1100-4500); Lymphocytes Percent Auto 13.6 % (25-40); Mean Corpuscular HGB Conc 31.8 % (30-36); Mean Corpuscular Hemoglobin 33.9 PG (26-34); Mean Corpuscular Volume 106.6 fL (80-100); Monocytes Absolute Auto 900 /uL (0-900); Neutrophils Absolute Auto 9700 /uL (1500-7000); Neutrophils Percent Auto 78.8 % (50-75); Platelet Count 300 X10^3/uL (150-400); Red Blood Cell Count 2.22 X10^6/uL (4.0-5.2); White Blood Cell Count 12.3 X10^3/uL (4.5-11.0)
[2020-03-23 03:21] LABS: INR 1.7 (0.9-1.3); Prothrombin Time 19.6 SECONDS (10.1-12.7)
[2020-03-23 03:23] LABS: PTT Partial Thromboplastin Tim 38 SECONDS (26.4-36.2)
[2020-03-23 03:25] LABS: Alanine Aminotransferase 13 IU/L (<35); Albumin 2.6 g/dL (3.5-5.0); Albumin Globulin Ratio 0.9 (1.0-2.8); Alkaline Phosphatase 81 U/L (38-126); Aspartate Aminotransferase 33 IU/L (14-36); BUN Creatinine Ratio 42.2 (6-22); Bilirubin Total 4.4 mg/dL (0.2-1.3); Blood Urea Nitrogen 46 mg/dL (7-17); Calcium 8.3 mg/dL (8.4-10.2); Carbon Dioxide 27 mmol/L (22-32); Chloride 105 mmol/L (98-107); Estimated Glomerular Filt Rate 51.2 mL/min (>60); Globulin 2.9 g/dL (1.7-4.1); Glucose 126 mg/dL (80-110); HEMOLYSIS < 15 (0-50); Lipase 52 U/L (23-300); Potassium 3.8 mmol/L (3.4-5.1); Sodium 141 mmol/L (137-145); Total Protein 5.5 g/dL (6.3-8.2)
--- NOTE | 2020-03-23 03:25 | PC.NURSE ---
Pt had 100 cc emesis. Emesis was dark red in color. No clots seen
[2020-03-23] MEDS: OCTREOTIDE 500 MCG in SODIUM CHLORIDE 0.9% 100 ML 5.05 ML IV (03:50)
[2020-03-23 03:58] LABS: Ammonia (NH3) 24 umol/L (9-30)
[2020-03-23] MEDS: CEFTRIAXONE 2 GM/50 ML FROZ.PIGGY IV (04:02)
[2020-03-23] MEDS: PANTOPRAZOLE 80 MG in SODIUM CHLORIDE 0.9% 100 ML 10 ML IV (04:35)
[2020-03-23 05:04] LABS: COVID19 -Nasal RAPID Negative (Negative)
[2020-03-23 06:07] LABS: Hematocrit 30.8 % (36-46); Hemoglobin 10.4 g/dL (12.0-16.0)
== END 2020-03-23 06:40 | disposition short-term general hospital (02) ==
PROVIDERS: Emergency Provider Emergency Medicine; PCP Nurse Practitioner Family
DX: K92.2 Gastrointestinal hemorrhage, unspecified (principal); K70.31 Alcoholic cirrhosis of liver with ascites; K76.9 Liver disease, unspecified; I10 Essential (primary) hypertension; R11.2 Nausea with vomiting, unspecified; R42 Dizziness and giddiness
CPT/HCPCS: 36415; 36430; 80053; 82140; 83690; 85014; 85018; 85025; 85610; 85730; 86850; 86900; 86901; 86927; 87635; 96365; 96366; 96368; 96375; 96376; 99285; 99291; 99292; P9016; C9113; J0696; J2354; J2405

== ENCOUNTER → 2020-03-28 15:32 | Outpatient (CLI) | payer OTHER, MEDICAID, SELFPAY ==
[2020-03-28 16:36] LABS: Appearance Urine UA SL CLOUDY; Bilirubin Urine UA 1+ (NEGATIVE); Color Urine UA ORANGE; Glucose Urine UA NEGATIVE (Negative); Ketones Urine UA TRACE (NEGATIVE); Leukocyte Esterase Urine UA TRACE (NEGATIVE); Nitrite Urine UA NEGATIVE (Negative); Occult Blood Urine UA NEGATIVE (Negative); Protein Urine UA TRACE (Negative)
[2020-03-28 16:41] LABS: Ictotest Urine Positive (Negative); pH Urine UA 5.5 (4.5-8.0)
[2020-03-28 16:48] LABS: Bacteria Urine Occasional (0-1); Hyaline Casts Urine 10-30/LPF; Other Crystals Urine 1+ No ID available; RBC Urine 0-1/HPF (0-5/HPF); Squamous Epithelial Cell Urine 1-5 /HPF (0-5/HPF); Transitional Epi Cells Urine 1-5/HPF (0-5/HPF); WBC Urine 1-5/HPF (0-5/HPF)
[2020-03-28 16:49] LABS: Culture Indicated Urine Specimen Cultured; Mucus Urine 2+ (Negative); Other Casts Urine 0-1 Mixed Cellular
[2020-03-28 16:50] LABS: Add Manual Diff / Slide Review NO; Basophils Absolute Auto 0 /uL (0-100); Basophils Percent Auto 0.2 % (0-2); Eosinophils Absolute Auto 100 /uL (0-450); Eosinophils Percent Auto 0.7 % (2-4); Hematocrit 30.8 % (36-46); Hemoglobin 10.4 g/dL (12.0-16.0); Lymphocytes Absolute Auto 800 /uL (1100-4500); Lymphocytes Percent Auto 9.1 % (25-40); Mean Corpuscular HGB Conc 33.9 % (30-36); Mean Corpuscular Hemoglobin 33.5 PG (26-34); Mean Corpuscular Volume 98.8 fL (80-100); Monocytes Absolute Auto 800 /uL (0-900); Monocytes Percent Auto 10.1 % (3-14); Neutrophils Absolute Auto 6700 /uL (1500-7000); Neutrophils Percent Auto 79.9 % (50-75); Platelet Count 129 X10^3/uL (150-400); Red Blood Cell Count 3.11 X10^6/uL (4.0-5.2); Red Cell Distribution Width 18.2 % (11.6-14.8); White Blood Cell Count 8.4 X10^3/uL (4.5-11.0)
[2020-03-28 17:03] LABS: Alanine Aminotransferase 9 IU/L (<35); Albumin 3.1 g/dL (3.5-5.0); Alkaline Phosphatase 102 U/L (38-126); Aspartate Aminotransferase 35 IU/L (14-36); Blood Urea Nitrogen 9 mg/dL (7-17); Calcium 8.5 mg/dL (8.4-10.2); Carbon Dioxide 28 mmol/L (22-32); Chloride 105 mmol/L (98-107); Estimated Glomerular Filt Rate > 60.0 mL/min (>60); Globulin 3.1 g/dL (1.7-4.1); Glucose 126 mg/dL (80-110); HEMOLYSIS < 15 (0-50); Sodium 138 mmol/L (137-145); Total Protein 6.2 g/dL (6.3-8.2)
== END ==
PROVIDERS: PCP Family Medicine; Referring Provider Family Medicine; Visit Provider Family Medicine
DX: K70.31 Alcoholic cirrhosis of liver with ascites (principal)
CPT/HCPCS: 36415; 80053; 81001; 85025; 87086

== ENCOUNTER → 2020-05-07 16:00 | Outpatient (CLI) | payer OTHER, MEDICAID, SELFPAY ==
[2020-05-07 16:34] LABS: Add Manual Diff / Slide Review NO; Basophils Absolute Auto 0 /uL (0-100); Basophils Percent Auto 0.8 % (0-2); Eosinophils Absolute Auto 0 /uL (0-450); Hematocrit 35.8 % (36-46); Hemoglobin 11.5 g/dL (12.0-16.0); Lymphocytes Absolute Auto 600 /uL (1100-4500); Lymphocytes Percent Auto 14.9 % (25-40); Mean Corpuscular HGB Conc 32.2 % (30-36); Mean Corpuscular Hemoglobin 28.9 PG (26-34); Mean Corpuscular Volume 89.8 fL (80-100); Monocytes Absolute Auto 500 /uL (0-900); Neutrophils Absolute Auto 2800 /uL (1500-7000); Neutrophils Percent Auto 71.3 % (50-75); Platelet Count 180 X10^3/uL (150-400); Red Blood Cell Count 3.99 X10^6/uL (4.0-5.2); Red Cell Distribution Width 17.3 % (11.6-14.8); White Blood Cell Count 3.9 X10^3/uL (4.5-11.0)
[2020-05-07 16:36] LABS: Ammonia (NH3) 13 umol/L (9-30)
[2020-05-07 16:51] LABS: INR 1.3 (0.9-1.3); Prothrombin Time 15.4 SECONDS (10.1-12.7)
[2020-05-07 16:58] LABS: Alanine Aminotransferase 9 IU/L (<35); Albumin 3.8 g/dL (3.5-5.0); Alkaline Phosphatase 95 U/L (38-126); Aspartate Aminotransferase 37 IU/L (14-36); BUN Creatinine Ratio 10.8 (6-22); Blood Urea Nitrogen 7 mg/dL (7-17); Calcium 9.3 mg/dL (8.4-10.2); Carbon Dioxide 26 mmol/L (22-32); Chloride 107 mmol/L (98-107); Estimated Glomerular Filt Rate > 60.0 mL/min (>60); Globulin 3.9 g/dL (1.7-4.1); Glucose 114 mg/dL (80-110); HEMOLYSIS < 15 (0-50); Potassium 3.4 mmol/L (3.4-5.1); Sodium 139 mmol/L (137-145); Total Protein 7.7 g/dL (6.3-8.2)
== END ==
PROVIDERS: PCP Family Medicine; Referring Provider Family Medicine; Visit Provider Family Medicine
DX: E63.9 Nutritional deficiency, unspecified (principal); E87.6 Hypokalemia; K70.31 Alcoholic cirrhosis of liver with ascites; I10 Essential (primary) hypertension; K76.9 Liver disease, unspecified
CPT/HCPCS: 36415; 80053; 82140; 85025; 85610

== ENCOUNTER 2020-06-13 12:11 | Emergency (ER) | payer OTHER, MEDICAID, SELFPAY ==
[2020-06-13 12:22] VITALS: BP 135/69; PULSE 90; RESP 18; TEMP 36.1; O2SAT 99; BMI 24.7
[2020-06-13 12:51] LABS: Add Manual Diff / Slide Review NO; Basophils Absolute Auto 0 /uL (0-100); Basophils Percent Auto 0.8 % (0-2); Eosinophils Absolute Auto 100 /uL (0-450); Eosinophils Percent Auto 1.8 % (2-4); Hematocrit 33.4 % (36-46); Hemoglobin 10.9 g/dL (12.0-16.0); Lymphocytes Absolute Auto 500 /uL (1100-4500); Lymphocytes Percent Auto 16.5 % (25-40); Mean Corpuscular HGB Conc 32.8 % (30-36); Mean Corpuscular Hemoglobin 28.7 PG (26-34); Mean Corpuscular Volume 87.5 fL (80-100); Monocytes Absolute Auto 400 /uL (0-900); Neutrophils Absolute Auto 2200 /uL (1500-7000); Neutrophils Percent Auto 69.9 % (50-75); Platelet Count 134 X10^3/uL (150-400); Red Blood Cell Count 3.81 X10^6/uL (4.0-5.2); Red Cell Distribution Width 17.9 % (11.6-14.8); White Blood Cell Count 3.2 X10^3/uL (4.5-11.0)
--- NOTE | 2020-06-13 12:51 | ED_ITS ---
HPI - Abdominal Pain <MONTANA Cleary - Last Filed: 06/13/20 16:53> General Chief Complaint: Abdominal Pain Stated Complaint: stomach hurts cant go pee Time Seen by Provider: 06/13/20 12:30 Source: patient Mode of arrival: Ambulatory Limitations: no limitations History of Present Illness HPI narrative: 60-year-old female with a history of ascites due to alcoholic cirrhosis, esophageal varices, and history of ascites, presents to the emergency department for increasing abdominal swelling that started yesterday. Patient states she stopped drinking in March, has not had an alcoholic drink since then. She had her abdominal ascites drained just prior to . Patient states she was taking her medications and was doing well. She had bands put in place for esophageal varices a few months ago. She states yesterday she developed left lower quadrant abdominal pain and noticed her stomach swelled significantly. She states the swelling is slightly better today. Patient d enies any fevers, chills, nausea, vomiting, diarrhea, chest pain, shortness of breath, or any other concerns. Related Data Home Medications Medication Instructions Recorded Confirmed Vitamin B12 See Rx Instructions .ROUTE .COMPLEX 03/08/19 04/09/20 Previous Rx's Medication Instructions Recorded lorazepam 1 mg tablet 1 mg PO BEDTIME #30 tab 08/12/19 verapamil 120 mg 24 hr 120 mg PO DAILY #90 cap 03/21/20 capsule,extended release metoclopramide HCl 10 mg PO Q6H PRN #10 tab 03/22/20 furosemide 20 mg tablet 20 mg PO QAM #90 tab 03/28/20 spironolactone 25 mg tablet 25 mg PO BID #180 tab 03/28/20 tramadol 50 mg tablet 50 mg PO TID PRN #60 tab 03/28/20 buspirone 10 mg tablet 10 mg PO BID #60 tab 06/13/20 Allergies Allergy/AdvReac Type Severity Reaction Status Date / Time Penicillins [PENICILLINS] Allergy Mild RASH Verified 04/09/20 13:31 lisinopril [LISINOPRIL] AdvReac Intermediate Nausea Verified 04/09/20 13:31 Redness of skin Review of Systems <MONTANA Cleary - Last Filed: 06/13/20 16:53> Review of Systems Narrative: REVIEW OF SYSTEMS: GENERAL: Denies fever. HENT: No head trauma. CARDIOVASCULAR: No chest pain. RESPIRATORY: No cough. GASTROINTESTINAL: Complains of abdominal pain and swelling, see HPI GENITOURINARY: No flank pain. MUSCULOSKELETAL: No pain, weakness, or trauma. INTEGUMENTARY: No rash. NEURO: No numbness or tingling. PSYCH: No behavior or mood changes. Patient History <MONTANA Cleary - Last Filed: 06/13/20 16:53> Medical History Alcoholic cirrhosis of liver with ascites Ascites due to alcoholic cirrhosis Esophageal varices determined by endoscopy ETOH abuse HTN (hypertension) Hypokalemia Liver lesion Nausea Nutritional deficiency Patient denies significant medical history Surgical History Status post delivery Status post laparoscopic cholecystectomy (04/26/17) Family History Mother Cancer Gallstones Grandfather Heart disease Father Hypertension Prostate cancer Grandmother Breast cancer Family/Other Breast cancer Social History household members: children Smoking Status: Current every day smoker Tobacco: How many years used: 30 quit status: not considering quitting (Declined cessation handout) second hand exposure: No alcohol intake: current substance use type: does not use Smoking Status: Current every day smoker alcohol intake frequency: other Substance Use Type: does not use Exam <MONTANA Cleary - Last Filed: 06/13/20 16:53> Initial Vital Signs Initial Vital Signs: Vital Signs Temperature 96.9 F L 06/13/20 12:22 Pulse Rate 90 06/13/20 12:22 Respiratory Rate 18 06/13/20 12:22 Blood Pressure 135/69 06/13/20 12:22 Pulse Oximetry 99 06/13/20 12:22 PHYSICAL EXAMINATION: GENERAL: Awake and alert, answers questions appropriately. HENT: Normocephalic, atraumatic. Hearing intact. Oral mucosa is pink and moist. EYES: Conjunctiva pink, sclera white, no periorbital swelling. CARDIOVASCULAR: S1 and S2 sounds normal. Regular rate and rhythm, no murmurs, c licks, or bruits. No pedal edema. RESPIRATORY: Normal respiratory rate, trachea midline, airway patent. No stridor, nasal flaring or accessory muscle use. Lungs are clear in all andrade without wheeze, rhonchi, or crackles. GASTROINTESTINAL: Bowel sounds normoactive. Abdomen is soft, tenderness to left lower quadrant. Moderate ascites noted. No organomegaly, no palpable masses. GENITALURINARY: No flank tenderness. MUSCULOSKELETAL: Normal gait and coordination. Equal tone and mass bilaterally. EXTREMITIES: CMS intact, no pedal edema. SKIN: Warm, dry, soft, appropriate color for ethnicity. No lesions, rashes, or wounds to visualized areas. NEURO: Alert and Oriented X 3. Good coordination. No ataxia, or sensory deficits, or cognitive issues. PSYCH: Appropriate affect and mood. <Polly Shearer MD - Last Filed: 06/14/20 07:35> Initial Vital Signs Initial Vital Signs: Vital Signs Temperature 96.9 F L 06/13/20 12:22 Pulse Rate 90 06/13/20 12:22 Respiratory Rate 18 06/13/20 12:22 Blood Pressure 135/69 06/13/20 12:22 Pulse Oximetry 99 06/13/20 12:22 Course <MONTANA Cleary - Last Filed: 06/13/20 16:53> Orders Ordered: Discontinued Medications Potassium Chloride (Potassium Chloride 20 Meq/15 Ml Udc) 40 meq PO NOW ONE Stop: 06/13/20 14:20 Last Admin: 06/13/20 15:13 Dose: 40 meq Documented by: TALIA Vital Signs Vital signs: Vital Signs - 8 hr 06/13/20 12:22 06/13/20 13:54 06/13/20 13:55 Temperature 96.9 F L Pulse Rate 90 75 Respiratory Rate 18 22 Blood Pressure 135/69 143/66 H Pulse Oximetry 99 99 <Polly Shearer MD - Last Filed: 06/14/20 07:35> Orders Ordered: Discontinued Medications Potassium Chloride (Potassium Chloride 20 Meq/15 Ml Udc) 40 meq PO NOW ONE Stop: 06/13/20 14:20 Last Admin: 06/13/20 15:13 Dose: 40 meq Documented by: TALIA Vital Signs Vital signs: Vital Signs - 8 hr 06/13/20 12:22 06/13/20 13:54 06/13/20 13:55 Temperature 96.9 F L Pulse Rate 90 75 Respiratory Rate 18 22 Blood Pressure 135/69 143/66 H Pulse Oximetry 99 99 MDM - Abdominal Pain <Khushi CastroMONTANA - Last Filed: 06/13/20 16:53> Medical Records Attestation: I reviewed the patient's medical records. Lab Data Attestation: I reviewed the patient's lab results. Result diagrams: 06/13/20 12:43 06/13/20 12:43 Labs: Lab Results 06/13/20 06/13/20 06/13/20 Range/Units 12:43 12:43 12:43 WBC 3.2 L (4.5-11.0) X10^3/uL RBC 3.81 L (4.0-5.2) X10^6/uL Hgb 10.9 L (12.0-16.0) g/dL Hct 33.4 L (36-46) % MCV 87.5 (80-100) fL MCH 28.7 (26-34) PG MCHC 32.8 (30-36) % RDW 17.9 H (11.6-14.8) % Plt Count 134 L (150-400) X10^3/uL Neut % (Auto) 69.9 (50-75) % Lymph % (Auto) 16.5 L (25-40) % [place] % (Auto) 11.0 (3-14) % Eos % (Auto) 1.8 L (2-4) % Baso % (Auto) 0.8 (0-2) % Neut # (Auto) 2200 (1817-0854) /uL Lymph # (Auto) 500 L (5630-2860) /uL [place] # (Auto) 400 (0-900) /uL Eos # (Auto) 100 (0-450) /uL Baso # (Auto) 0 (0-100) /uL PT 15.1 H (10.1-12.7) SECONDS INR 1.3 (0.9-1.3) APTT 39 H (26.4-36.2) SECONDS Sodium 139 (137-145) mmol/L Potassium 3.2 L (3.4-5.1) mmol/L Chloride 107 (98-107) mmol/L Carbon Dioxide 26 (22-32) mmol/L BUN 5 L (7-17) mg/dL Creatinine 0.59 (0.52-1.04) mg/dL Estimated GFR > 60.0 (>60) mL/min BUN/Creatinine Ratio 8.5 (6-22) Glucose 114 H (80-110) mg/dL Calcium 8.8 (8.4-10.2) mg/dL Total Bilirubin 2.0 H (0.2-1.3) mg/dL AST 31 (14-36) IU/L ALT 5 (<35) IU/L Alkaline Phosphatase 98 (38-126) U/L Ammonia (9-30) umol/L Total Protein 7.0 (6.3-8.2) g/dL Albumin 3.6 (3.5-5.0) g/dL Globulin 3.4 (1.7-4.1) g/dL Albumin/Globulin Ratio 1.1 (1.0-2.8) Lipase 84 (23-300) U/L 06/13/20 Range/Units 12:43 WBC (4.5-11.0) X10^3/uL RBC (4.0-5.2) X10^6/uL Hgb (12.0-16.0) g/dL Hct (36-46) % MCV (80-100) fL MCH (26-34) PG MCHC (30-36) % RDW (11.6-14.8) % Plt Count (150-400) X10^3/uL Neut % (Auto) (50-75) % Lymph % (Auto) (25-40) % [place] % (Auto) (3-14) % Eos % (Auto) (2-4) % Baso % (Auto) (0-2) % Neut # (Auto) (4513-8903) /uL Lymph # (Auto) (2424-2990) /uL [place] # (Auto) (0-900) /uL Eos # (Auto) (0-450) /uL Baso # (Auto) (0-100) /uL PT (10.1-12.7) SECONDS INR (0.9-1.3) APTT (26.4-36.2) SECONDS Sodium (137-145) mmol/L Potassium (3.4-5.1) mmol/L Chloride (98-107) mmol/L Carbon Dioxide (22-32) mmol/L BUN (7-17) mg/dL Creatinine (0.52-1.04) mg/dL Estimated GFR (>60) mL/min BUN/Creatinine Ratio (6-22) Glucose (80-110) mg/dL Calcium (8.4-10.2) mg/dL Total Bilirubin (0.2-1.3) mg/dL AST (14-36) IU/L ALT (<35) IU/L Alkaline Phosphatase (38-126) U/L Ammonia 10 (9-30) umol/L Total Protein (6.3-8.2) g/dL Albumin (3.5-5.0) g/dL Globulin (1.7-4.1) g/dL Albumin/Globulin Ratio (1.0-2.8) Lipase (23-300) U/L Point of care testing: Urine Dip Bedside Urine Glucose Negative Bedside Urine Bilirubin - Negative Bedside Urine Ketone - Negative Urine Specific [place] 1.015 Bedside Urine Occult Blood +++ Bedside Urine pH 6.0 Bedside Urine Protein - Negative Bedside Urine Urobilinogen - Negative Bedside Urine Nitrite - Negative Bedside Urine Leukocytes - Negative Esterase Imaging Data CT scan - abdomen/pelvis: Radiologist's Impression: [address] [id number] Scan ReportSigned Patient: Caren Choe [facility]#: [id number]: 1960Acct:[id number]/Sex: 60 / FDate of Service: 06/13/20Loc: EDAccession Number: [id number] Procedure: CT abdomen pelvis w con Ordering Provider: Khushi Castro PROCEDURE: CT ABDOMEN PELVIS W CON INDICATIONS: LLQ abd pain TECHNIQUE: After the administration of intravenous contrast, 5 mm thick sections acquired from the diaphragm to the symphysis. 5 mm coronal and sagittal reformats were acquired. For radiation dose reduction, the following was used: automated exposure control, adjustment of mA and/or kV according to patient size. COMPARISON: [facility], CT, CT ABDOMEN PELVIS W CON, 03/12/2020, 16:52. FINDINGS: Image quality: Excellent. ABDOMEN: Lung bases: Mild dependent bilateral lower lobe atelectasis is present, as before. Lung bases are otherwise clear. Heart size is normal. No change in 10 mm short axis low-density focus within the inferior mediastinum in the periaortic location. Calcification of the coronary vasculature. Solid organs: Liver is shrunken and demonstrates a nodular hepatic contour, as before. My. Gallbladder is surgically absent. Biliary system is non dilated. Pancreas enhances normally. Spleen is normal in size and enhancement. No adrenal nodules. Kidneys demonstrate normal size and enhancement, without hydronephrosis. Previously seen left renal pelvic calculus has migrated into the renal pelvis, measuring 7 mm. Peritoneum and bowel: Scattered regions of moderate small and large bowel thickening are present, as before. No evidence of bowel obstruction. No free air. Moderate ascites is present, as before. Nodes and vessels: No retroperitoneal or mesenteric adenopathy by size criteria. Aorta and inferior vena cava are normal in size. Recanalized umbilical vein. Miscellaneous: No ventral hernias. PELVIS: Genitourinary: Bladder wall thickness is normal. Miscellaneous: No inguinal hernias or adenopathy. Bones: No suspicious bony lesions. No vertebral body compression fractures. IMPRESSION: 1. Cirrhosis and portal hypertension. 2. Moderate ascites. 3. Left renal calculus has migrated into the renal pelvis. No hydronephrosis. 4. Small and large bowel thickening is present, as before, consistent with infection, inflammation, or sequelae of portal hypertension. 5. Coronary artery disease. 6. No change in posterior inferior mediastinal para-aortic lymph node. Dictated by: Ritu Sousa M.D. on 06/13/2020 at 13:36 Approved by: Ritu Sousa M.D. on 06/13/2020 at 13:40 MDM Narrative Medical decision making narrative: 60-year-old female with a history of alcoholic liver cirrhosis and past history of ascites, presents to the ED for ascites that started approximately 24 hours ago. Patient also noted left lower quadrant pain. I am unsure the exact cause of this pain however, this may be related to current ascites or musculoskeletal etiology. Differential also includes gastroenteritis. CT is negative for any concerning symptoms such as acute infection. Patient is afebrile non tachycardic. She does have moderate ascites but is not severe, no impacted breathing or causing severe pain. No emergent paracentesis Indicated at this time. Patient initially had a low potassium of 3.2, she was given oral potassium replacement she states she has forgot to take her potassium this week which is most likely the cause of this. Urine studies within normal limits. Patient is in no acute distress, hemodynamically stable. She was encouraged to contact her primary care provider to discuss therapeutic paracentesis. Patient was given strict ED return precautions she worsening symptoms. She agrees plan of care verbalized understanding. <Polly Shearer MD - Last Filed: 06/14/20 07:35> Lab Data Labs: Lab Results 06/13/20 06/13/20 06/13/20 Range/Units 12:43 12:43 12:43 WBC 3.2 L (4.5-11.0) X10^3/uL RBC 3.81 L (4.0-5.2) X10^6/uL Hgb 10.9 L (12.0-16.0) g/dL Hct 33.4 L (36-46) % MCV 87.5 (80-100) fL MCH 28.7 (26-34) PG MCHC 32.8 (30-36) % RDW 17.9 H (11.6-14.8) % Plt Count 134 L (150-400) X10^3/uL Neut % (Auto) 69.9 (50-75) % Lymph % (Auto) 16.5 L (25-40) % [place] % (Auto) 11.0 (3-14) % Eos % (Auto) 1.8 L (2-4) % Baso % (Auto) 0.8 (0-2) % Neut # (Auto) 2200 (3396-5129) /uL Lymph # (Auto) 500 L (6183-0206) /uL [place] # (Auto) 400 (0-900) /uL Eos # (Auto) 100 (0-450) /uL Baso # (Auto) 0 (0-100) /uL PT 15.1 H (10.1-12.7) SECONDS INR 1.3 (0.9-1.3) APTT 39 H (26.4-36.2) SECONDS Sodium 139 (137-145) mmol/L Potassium 3.2 L (3.4-5.1) mmol/L Chloride 107 (98-107) mmol/L Carbon Dioxide 26 (22-32) mmol/L BUN 5 L (7-17) mg/dL Creatinine 0.59 (0.52-1.04) mg/dL Estimated GFR > 60.0 (>60) mL/min BUN/Creatinine Ratio 8.5 (6-22) Glucose 114 H (80-110) mg/dL Calcium 8.8 (8.4-10.2) mg/dL Total Bilirubin 2.0 H (0.2-1.3) mg/dL AST 31 (14-36) IU/L ALT 5 (<35) IU/L Alkaline Phosphatase 98 (38-126) U/L Ammonia (9-30) umol/L Total Protein 7.0 (6.3-8.2) g/dL Albumin 3.6 (3.5-5.0) g/dL Globulin 3.4 (1.7-4.1) g/dL Albumin/Globulin Ratio 1.1 (1.0-2.8) Lipase 84 (23-300) U/L 06/13/20 Range/Units 12:43 WBC (4.5-11.0) X10^3/uL RBC (4.0-5.2) X10^6/uL Hgb (12.0-16.0) g/dL Hct (36-46) % MCV (80-100) fL MCH (26-34) PG MCHC (30-36) % RDW (11.6-14.8) % Plt Count (150-400) X10^3/uL Neut % (Auto) (50-75) % Lymph % (Auto) (25-40) % [place] % (Auto) (3-14) % Eos % (Auto) (2-4) % Baso % (Auto) (0-2) % Neut # (Auto) (4323-4221) /uL Lymph # (Auto) (1624-6144) /uL [place] # (Auto) (0-900) /uL Eos # (Auto) (0-450) /uL Baso # (Auto) (0-100) /uL PT (10.1-12.7) SECONDS INR (0.9-1.3) APTT (26.4-36.2) SECONDS Sodium (137-145) mmol/L Potassium (3.4-5.1) mmol/L Chloride (98-107) mmol/L Carbon Dioxide (22-32) mmol/L BUN (7-17) mg/dL Creatinine (0.52-1.04) mg/dL Estimated GFR (>60) mL/min BUN/Creatinine Ratio (6-22) Glucose (80-110) mg/dL Calcium (8.4-10.2) mg/dL Total Bilirubin (0.2-1.3) mg/dL AST (14-36) IU/L ALT (<35) IU/L Alkaline Phosphatase (38-126) U/L Ammonia 10 (9-30) umol/L Total Protein (6.3-8.2) g/dL Albumin (3.5-5.0) g/dL Globulin (1.7-4.1) g/dL Albumin/Globulin Ratio (1.0-2.8) Lipase (23-300) U/L Point of care testing: Urine Dip Bedside Urine Glucose Negative Bedside Urine Bilirubin - Negative Bedside Urine Ketone - Negative Urine Specific [place] 1.015 Bedside Urine Occult Blood +++ Bedside Urine pH 6.0 Bedside Urine Protein - Negative Bedside Urine Urobilinogen - Negative Bedside Urine Nitrite - Negative Bedside Urine Leukocytes - Negative Esterase Discharge Plan Departure Patient Disposition: Home Clinical Impression: Ascites Qualifiers: Ascites type: due to alcoholic cirrhosis Qualified Code(s): K70.31 - Alcoholic cirrhosis of liver with ascites Instructions: DI for Ascites Activity Restrictions/Additional Instructions: Thank you for entrusting me with your care today. As discussed, your laboratory work shows that you have low potassium, we have given you a dose of potassium here. Your CT is negative for any concerning findings. You do have some fluid around your abdomen. There is not enough fluid to drain emergently today. I recommend that you follow-up with your liver or GI provider, please given a call today or tomorrow to schedule an appointment as soon as possible. Return to the emergency department for any new or worsening symptoms. Prescriptions: No Action lorazepam 1 mg tablet 1 mg PO BEDTIME Qty: 30 RF: 3 buspirone 10 mg tablet 10 mg PO BID Qty: 60 RF: 2 verapamil 120 mg capsule,ext rel. pellets 24 hr 120 mg PO DAILY Qty: 90 RF: 1 Vitamin B12 See Rx Instructions .ROUTE .COMPLEX RF: 0 spironolactone 25 mg tablet 25 mg PO BID Qty: 180 RF: 1 furosemide 20 mg tablet 20 mg PO QAM Qty: 90 RF: 1 tramadol 50 mg tablet 50 mg PO TID PRN (Reason: pain) Qty: 60 RF: 0 metoclopramide HCl 10 mg tablet 10 mg PO Q6H PRN (Reason: nausea and vomiting) Qty: 10 RF: 0 Referrals: Sergo Hardin DO [Primary Care Provider] - <Polly Shearer MD - Last Filed: 06/14/20 07:35> [facility]: I was immediately available in the department for consultation throughout this patient's visit. I agree with documentation as above. Polly Shearer MD
--- NOTE | 2020-06-13 12:57 | DI.CT.S_ITS ---
PROCEDURE: CT ABDOMEN PELVIS W CON INDICATIONS: LLQ abd pain TECHNIQUE: After the administration of intravenous contrast, 5 mm thick sections acquired from the diaphragm to the symphysis. 5 mm coronal and sagittal reformats were acquired. For radiation dose reduction, the following was used: automated exposure control, adjustment of mA and/or kV according to patient size. COMPARISON: [facility], CT, CT ABDOMEN PELVIS W CON, 03/12/2020, 16:52. FINDINGS: Image quality: Excellent. ABDOMEN: Lung bases: Mild dependent bilateral lower lobe atelectasis is present, as before. Lung bases are otherwise clear. Heart size is normal. No change in 10 mm short axis low-density focus within the inferior mediastinum in the periaortic location. Calcification of the coronary vasculature. Solid organs: Liver is shrunken and demonstrates a nodular hepatic contour, as before. My. Gallbladder is surgically absent. Biliary system is non dilated. Pancreas enhances normally. Spleen is normal in size and enhancement. No adrenal nodules. Kidneys demonstrate normal size and enhancement, without hydronephrosis. Previously seen left renal pelvic calculus has migrated into the renal pelvis, measuring 7 mm. Peritoneum and bowel: Scattered regions of moderate small and large bowel thickening are present, as before. No evidence of bowel obstruction. No free air. Moderate ascites is present, as before. Nodes and vessels: No retroperitoneal or mesenteric adenopathy by size criteria. Aorta and inferior vena cava are normal in size. Recanalized umbilical vein. Miscellaneous: No ventral hernias. PELVIS: Genitourinary: Bladder wall thickness is normal. Miscellaneous: No inguinal hernias or adenopathy. Bones: No suspicious bony lesions. No vertebral body compression fractures. IMPRESSION: 1. Cirrhosis and portal hypertension. 2. Moderate ascites. 3. Left renal calculus has migrated into the renal pelvis. No hydronephrosis. 4. Small and large bowel thickening is present, as before, consistent with infection, inflammation, or sequelae of portal hypertension. 5. Coronary artery disease. 6. No change in posterior inferior mediastinal para-aortic lymph node. Dictated by: Ritu Sousa M.D. on 06/13/2020 at 13:36 Approved by: Ritu Sousa M.D. on 06/13/2020 at 13:40
[2020-06-13 13:03] LABS: INR 1.3 (0.9-1.3); Prothrombin Time 15.1 SECONDS (10.1-12.7)
[2020-06-13 13:06] LABS: Ammonia (NH3) 10 umol/L (9-30); PTT Partial Thromboplastin Tim 39 SECONDS (26.4-36.2)
[2020-06-13 13:11] LABS: Alanine Aminotransferase 5 IU/L (<35); Albumin 3.6 g/dL (3.5-5.0); Albumin Globulin Ratio 1.1 (1.0-2.8); Alkaline Phosphatase 98 U/L (38-126); Aspartate Aminotransferase 31 IU/L (14-36); BUN Creatinine Ratio 8.5 (6-22); Blood Urea Nitrogen 5 mg/dL (7-17); Calcium 8.8 mg/dL (8.4-10.2); Carbon Dioxide 26 mmol/L (22-32); Chloride 107 mmol/L (98-107); Estimated Glomerular Filt Rate > 60.0 mL/min (>60); Globulin 3.4 g/dL (1.7-4.1); Glucose 114 mg/dL (80-110); HEMOLYSIS < 15 (0-50); Lipase 84 U/L (23-300); Potassium 3.2 mmol/L (3.4-5.1); Sodium 139 mmol/L (137-145)
[2020-06-13 13:54] VITALS: BP 143/66
[2020-06-13 13:55] VITALS: PULSE 75; RESP 22; O2SAT 99
[2020-06-13] MEDS: POTASSIUM CHLORIDE 20 MEQ/15 ML UDC 40 MEQ PO (15:13)
== END 2020-06-13 15:40 | disposition home or self-care (01) ==
PROVIDERS: Emergency Medicine; Emergency Provider Nurse Practitioner; PCP Family Medicine
DX: K70.31 Alcoholic cirrhosis of liver with ascites (principal); R10.32 Left lower quadrant pain; E87.6 Hypokalemia
CPT/HCPCS: 36415; 74177; 80053; 81003; 82140; 83690; 85025; 85610; 85730; 93005; 99284; Q9967

== ENCOUNTER → 2020-09-18 13:53 | Outpatient (CLI) | payer OTHER, MEDICAID, SELFPAY ==
[2020-09-18 15:02] LABS: Add Manual Diff / Slide Review NO; Basophils Absolute Auto 0 /uL (0-100); Basophils Percent Auto 0.7 % (0-2); Eosinophils Absolute Auto 100 /uL (0-450); Eosinophils Percent Auto 2.7 % (2-4); Hematocrit 34.9 % (36-46); Hemoglobin 11.7 g/dL (12.0-16.0); Lymphocytes Absolute Auto 700 /uL (1100-4500); Lymphocytes Percent Auto 21.6 % (25-40); Mean Corpuscular HGB Conc 33.6 % (30-36); Mean Corpuscular Hemoglobin 29.4 PG (26-34); Mean Corpuscular Volume 87.5 fL (80-100); Monocytes Absolute Auto 400 /uL (0-900); Monocytes Percent Auto 10.5 % (3-14); Neutrophils Absolute Auto 2200 /uL (1500-7000); Neutrophils Percent Auto 64.5 % (50-75); Platelet Count 117 X10^3/uL (150-400); Red Blood Cell Count 3.99 X10^6/uL (4.0-5.2); Red Cell Distribution Width 16.8 % (11.6-14.8); White Blood Cell Count 3.5 X10^3/uL (4.5-11.0)
[2020-09-18 16:49] LABS: HEMOLYSIS < 15 (0-50); Iron 77 ug/dL (37-170)
[2020-09-18 16:51] LABS: Hemoglobin A1C% w Est Avg Glu 4.6 % (4.0-6.0)
[2020-09-18 16:54] LABS: Alanine Aminotransferase 7 IU/L (<35); Albumin 4.3 g/dL (3.5-5.0); Albumin Globulin Ratio 1.3 (1.0-2.8); Alkaline Phosphatase 76 U/L (38-126); Aspartate Aminotransferase 34 IU/L (14-36); Bilirubin Total 1.6 mg/dL (0.2-1.3); Blood Urea Nitrogen 9 mg/dL (7-17); Calcium 9.8 mg/dL (8.4-10.2); Carbon Dioxide 25 mmol/L (22-32); Chloride 106 mmol/L (98-107); Estimated Glomerular Filt Rate > 60.0 mL/min (>60); Globulin 3.3 g/dL (1.7-4.1); Glucose 115 mg/dL (80-110); HEMOLYSIS < 15 (0-50); Potassium 3.8 mmol/L (3.4-5.1); Sodium 141 mmol/L (137-145); Total Protein 7.6 g/dL (6.3-8.2)
[2020-09-18 17:07] LABS: Percent Iron Saturation 18 % (15-50); Total Iron Binding Capacity 436 ug/dL (265-497); Transferrin 338 mg/dL (206-381)
[2020-09-18 17:28] LABS: Ferritin 11 ng/mL (11-264)
[2020-09-18 17:41] LABS: Vitamin B12 336 pg/mL (239-931)
== END ==
PROVIDERS: PCP Family Medicine; Referring Provider Family Medicine; Visit Provider Family Medicine
DX: D64.9 Anemia, unspecified (principal); E53.8 Deficiency of other specified B group vitamins; E87.6 Hypokalemia; I10 Essential (primary) hypertension; K70.31 Alcoholic cirrhosis of liver with ascites
CPT/HCPCS: 36415; 80053; 82607; 82728; 83036; 83540; 83550; 85025

== ENCOUNTER → 2021-02-25 13:44 | Outpatient (CLI) | payer OTHER, MEDICAID, SELFPAY ==
[2021-02-25 15:22] LABS: Hemoglobin A1C% w Est Avg Glu 4.6 % (4.0-6.0)
[2021-02-25 15:25] LABS: Add Manual Diff / Slide Review NO; Basophils Absolute Auto 0 /uL (0-100); Basophils Percent Auto 0.7 % (0-2); Eosinophils Absolute Auto 100 /uL (0-450); Eosinophils Percent Auto 2.6 % (2-4); Hematocrit 35.9 % (36-46); Hemoglobin 12.1 g/dL (12.0-16.0); Lymphocytes Absolute Auto 700 /uL (1100-4500); Lymphocytes Percent Auto 20.2 % (25-40); Mean Corpuscular HGB Conc 33.6 % (30-36); Mean Corpuscular Hemoglobin 30.2 PG (26-34); Mean Corpuscular Volume 89.7 fL (80-100); Monocytes Absolute Auto 300 /uL (0-900); Neutrophils Absolute Auto 2200 /uL (1500-7000); Neutrophils Percent Auto 66.5 % (50-75); Platelet Count 97 X10^3/uL (150-400); Red Cell Distribution Width 16.5 % (11.6-14.8); White Blood Cell Count 3.3 X10^3/uL (4.5-11.0)
[2021-02-25 15:43] LABS: HEMOLYSIS < 15 (0-50); Iron 95 ug/dL (37-170)
[2021-02-25 15:49] LABS: Alanine Aminotransferase 6 IU/L (<35); Albumin 4.4 g/dL (3.5-5.0); Albumin Globulin Ratio 1.3 (1.0-2.8); Alkaline Phosphatase 85 U/L (38-126); Aspartate Aminotransferase 28 IU/L (14-36); BUN Creatinine Ratio 14.5 (6-22); Bilirubin Total 1.6 mg/dL (0.2-1.3); Blood Urea Nitrogen 10 mg/dL (7-17); Calcium 9.6 mg/dL (8.4-10.2); Carbon Dioxide 27 mmol/L (22-32); Chloride 109 mmol/L (98-107); Estimated Glomerular Filt Rate > 60.0 mL/min (>60); Globulin 3.4 g/dL (1.7-4.1); Glucose 118 mg/dL (80-110); HEMOLYSIS < 15 (0-50); Potassium 4.2 mmol/L (3.4-5.1); Sodium 142 mmol/L (137-145); Total Protein 7.8 g/dL (6.3-8.2)
[2021-02-25 15:55] LABS: Percent Iron Saturation 26 % (15-50); Total Iron Binding Capacity 365 ug/dL (265-497); Transferrin 305 mg/dL (206-381)
[2021-02-25 16:24] LABS: Ferritin 15 ng/mL (11-264)
== END ==
PROVIDERS: PCP Family Medicine; Referring Provider Family Medicine; Visit Provider Family Medicine
DX: D64.9 Anemia, unspecified (principal); E87.6 Hypokalemia; I10 Essential (primary) hypertension; K70.31 Alcoholic cirrhosis of liver with ascites; K76.9 Liver disease, unspecified; R73.9 Hyperglycemia, unspecified
CPT/HCPCS: 36415; 80053; 82728; 83036; 83540; 83550; 85025

== ENCOUNTER → 2022-09-23 14:09 | Outpatient (CLI) | payer OTHER, MEDICAID, SELFPAY ==
--- NOTE | 2022-09-23 14:12 | DI.US.S_ITS ---
PROCEDURE: US ABDOMEN LIMITED INDICATIONS: UMBILICAL LUMP. HISTORY OF ASCITES. TECHNIQUE: Real-time focused scanning was performed of anterior abdominal wall COMPARISON: [facility], , US ABDOMEN LIMITED, 03/12/2020, 17:42. FINDINGS: Small fluid collection in the anterior abdominal wall with thin neck extending through a small fascial defect measuring 2 mm, connecting with intra-abdominal ascites Moderate abdominal ascites noted as well as nodular heterogenous liver and splenomegaly, 16.6 cm IMPRESSION: Small ventral hernia contains ascites fluid Hepatic cirrhosis, moderate ascites, splenomegaly Approved by: Sony Bell M.D. on 09/23/2022 at 18:41
[2022-09-23 15:05] LABS: Add Manual Diff / Slide Review NO; Basophils Absolute Auto 0 /uL (0-100); Basophils Percent Auto 0.1 % (0-2); Eosinophils Absolute Auto 100 /uL (0-450); Eosinophils Percent Auto 2.6 % (2-4); Hematocrit 33.8 % (36-46); Hemoglobin 11.5 g/dL (12.0-16.0); Lymphocytes Absolute Auto 600 /uL (1100-4500); Lymphocytes Percent Auto 21.7 % (25-40); Mean Corpuscular HGB Conc 34.1 % (30-36); Mean Corpuscular Hemoglobin 34.3 PG (26-34); Mean Corpuscular Volume 100.5 fL (80-100); Monocytes Absolute Auto 300 /uL (0-900); Monocytes Percent Auto 8.9 % (3-14); Neutrophils Absolute Auto 2000 /uL (1500-7000); Neutrophils Percent Auto 66.7 % (50-75); Platelet Count 101 X10^3/uL (150-400); Red Blood Cell Count 3.36 X10^6/uL (4.0-5.2); Red Cell Distribution Width 15.4 % (11.6-14.8)
[2022-09-23 15:21] LABS: Ammonia (NH3) 17 umol/L (9-30)
[2022-09-23 15:29] LABS: Alanine Aminotransferase 10 IU/L (<35); Albumin 2.9 g/dL (3.5-5.0); Albumin Globulin Ratio 0.8 (1.0-2.8); Alkaline Phosphatase 92 U/L (38-126); Aspartate Aminotransferase 32 IU/L (14-36); BUN Creatinine Ratio 8.8 (6-22); Bilirubin Total 4.1 mg/dL (0.2-1.3); Blood Urea Nitrogen 5 mg/dL (7-17); Calcium 8.3 mg/dL (8.4-10.2); Carbon Dioxide 23 mmol/L (22-32); Chloride 109 mmol/L (98-107); Estimated Glomerular Filt Rate > 60 mL/min (>60); Globulin 3.8 g/dL (1.7-4.1); Glucose 94 mg/dL (80-110); HEMOLYSIS < 15 (0-50); Potassium 3.8 mmol/L (3.4-5.1); Sodium 138 mmol/L (137-145); Total Protein 6.7 g/dL (6.3-8.2)
== END ==
PROVIDERS: PCP Family Medicine; Referring Provider Family Medicine; Visit Provider Family Medicine
DX: K42.9 Umbilical hernia without obstruction or gangrene (principal); D64.9 Anemia, unspecified; K70.31 Alcoholic cirrhosis of liver with ascites; L98.9 Disorder of the skin and subcutaneous tissue, unspecified; K43.9 Ventral hernia without obstruction or gangrene; R16.1 Splenomegaly, not elsewhere classified
CPT/HCPCS: 36415; 76705; 80053; 82140; 85025

== ENCOUNTER → 2022-09-26 14:45 | Outpatient (CLI) | payer OTHER, MEDICAID, SELFPAY ==
[2022-09-26 16:03] LABS: Alanine Aminotransferase 11 IU/L (<35); Albumin 3.2 g/dL (3.5-5.0); Albumin Globulin Ratio 0.9 (1.0-2.8); Alkaline Phosphatase 97 U/L (38-126); Aspartate Aminotransferase 33 IU/L (14-36); BUN Creatinine Ratio 9.1 (6-22); Bilirubin Total 4.2 mg/dL (0.2-1.3); Blood Urea Nitrogen 5 mg/dL (7-17); Calcium 8.3 mg/dL (8.4-10.2); Carbon Dioxide 24 mmol/L (22-32); Chloride 107 mmol/L (98-107); Estimated Glomerular Filt Rate > 60 mL/min (>60); Globulin 3.7 g/dL (1.7-4.1); Glucose 112 mg/dL (80-110); HEMOLYSIS < 15 (0-50); Potassium 3.5 mmol/L (3.4-5.1); Sodium 139 mmol/L (137-145); Total Protein 6.9 g/dL (6.3-8.2)
== END ==
PROVIDERS: PCP Family Medicine; Referring Provider Family Medicine; Visit Provider Family Medicine
DX: E80.6 Other disorders of bilirubin metabolism (principal)
CPT/HCPCS: 36415; 80053

== ENCOUNTER → 2022-09-29 10:24 | Outpatient (CLI) | payer OTHER, MEDICAID, SELFPAY ==
--- NOTE | 2022-09-29 12:10 | DI.CT.S_ITS ---
PROCEDURE: CT ABDOMEN PELVIS W CON INDICATIONS: Eval Cirrhosis TECHNIQUE: After the administration of oral and intravenous contrast, axial sections were acquired from the lung bases to the pubic symphysis. Coronal and sagittal reformats were performed. For radiation dose reduction, the following was used: automated exposure control, adjustment of mA and/or kV according to patient size. COMPARISON:[facility], CT, CT ABDOMEN PELVIS W CON, 06/13/2020, 13:20. FINDINGS: Image quality: Excellent. Lung bases: Unremarkable. Heart: No significant findings. ABDOMEN: Liver: Cirrhosis. Portal veins are widely patent. Recannulized umbilical vein. No solid mass, although evaluation is suboptimal due to single phase contrast timing. Gallbladder: Absent Biliary ducts: Unremarkable. Pancreas: Unremarkable. Spleen: Enlarged. Adrenal Glands: Unremarkable. Kidneys and Ureters: Unremarkable. Stomach and Bowel: Stomach, small bowel loops, and colon are unremarkable. Left-sided portal colopathy. Peritoneum: Large volume ascites. No free air. Ventral Wall: Umbilical hernia containing ascites. The neck measures 1.5 cm and the sac measures 2.4 x 1.8 cm. Abdominal Nodes: No retroperitoneal or mesenteric adenopathy by size criteria. Vessels: Aorta and inferior vena cava are normal in size. PELVIS: Pelvic Organs: Unremarkable. Bladder: Unremarkable. Pelvic Nodes: No enlarged lymph nodes. Miscellaneous: Fat within the right inguinal canal. Bones: Avascular necrosis of the right femoral head, without cortical collapse. IMPRESSION: Umbilical hernia containing ascites. The neck measures 1.5 cm and the sac measures 2.4 x 1.8 cm. Cirrhosis with portal hypertension. Large volume ascites. 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 Dictated by: Kris Epstein M.D. on 09/29/2022 at 13:20 Approved by: Kris Epstein M.D. on 09/29/2022 at 13:24
== END ==
PROVIDERS: PCP Family Medicine; Referring Provider Family Medicine; Visit Provider Family Medicine
DX: K70.31 Alcoholic cirrhosis of liver with ascites (principal); K76.6 Portal hypertension; E87.6 Hypokalemia; K42.9 Umbilical hernia without obstruction or gangrene; M87.9 Osteonecrosis, unspecified
CPT/HCPCS: 74177

== ENCOUNTER 2023-05-24 20:17 | Emergency (ER) | payer OTHER, MEDICAID, SELFPAY ==
[2023-05-24] VITALS (51 sets, daily range): BP systolic 55–163; BP diastolic 6–98; PULSE 116–137; RESP 15–50; TEMP 33.3–36.4; O2SAT 75–100; BMI 25.8
[2023-05-24] MEDS: ONDANSETRON 4 MG/2 ML INJ IV (20:06)
[2023-05-24] MEDS: TRANEXAMIC ACID 1,000 MG in SODIUM CHLORIDE 0.9% 100 ML 200 MG IV (20:29)
[2023-05-24] MEDS: PANTOPRAZOLE 40 MG VIAL 80 MG IV (20:29)
[2023-05-24 20:36] LABS: Add Manual Diff / Slide Review NO; Basophils Absolute Auto 0 /uL (0-100); Basophils Percent Auto 0.3 % (0-2); Eosinophils Absolute Auto 0 /uL (0-450); Eosinophils Percent Auto 0.5 % (2-4); Hematocrit 30.5 % (36-46); Hemoglobin 10.2 g/dL (12.0-16.0); Lymphocytes Absolute Auto 400 /uL (1100-4500); Lymphocytes Percent Auto 4.8 % (25-40); Mean Corpuscular HGB Conc 33.4 % (30-36); Mean Corpuscular Hemoglobin 36.9 PG (26-34); Mean Corpuscular Volume 110.6 fL (80-100); Monocytes Absolute Auto 600 /uL (0-900); Monocytes Percent Auto 6.8 % (3-14); Neutrophils Absolute Auto 7900 /uL (1500-7000); Neutrophils Percent Auto 87.6 % (50-75); Platelet Count 102 X10^3/uL (150-400); Red Blood Cell Count 2.75 X10^6/uL (4.0-5.2); Red Cell Distribution Width 21.5 % (11.6-14.8)
[2023-05-24] MEDS: OCTREOTIDE 500 MCG in SODIUM CHLORIDE 0.9% 100 ML 10.1 MCG IV (20:37)
--- NOTE | 2023-05-24 20:39 | DI.RAD.S_ITS ---
PROCEDURE: XR CHEST 1V INDICATIONS: central line placement, massive GI bleed TECHNIQUE: One view of the chest was acquired. COMPARISON: [facility], , CHEST 1 VIEW, 07/16/2016, 18:33. FINDINGS: Surgical changes and devices: There is a right-sided central line seen, with the tip overlying the inferior aspect of the superior vena cava, near the cavoatrial junction. Lungs and pleura: An incomplete inspiratory result is noted, causing a crowded appearance to the lung markings. No focal infiltrates are seen. No pneumothorax or significant pleural effusions are seen. Mediastinum: The cardiac contours are within normal limits. The aorta demonstrates calcification and tortuosity. Bones and chest wall: No suspicious bony lesions. Age-appropriate bony degenerative changes are seen. Overlying soft tissues appear unremarkable. IMPRESSION: The tip of the right-sided central line can be seen near the cavoatrial junction. Dictated by: Jluis Red M.D. on 05/24/2023 at 20:18 Approved by: Jluis Red M.D. on 05/24/2023 at 20:19
[2023-05-24 20:40] LABS: Alanine Aminotransferase 34 IU/L (<35); Albumin 2.5 g/dL (3.5-5.0); Albumin Globulin Ratio 0.8 (1.0-2.8); Alkaline Phosphatase 105 U/L (38-126); Aspartate Aminotransferase 390 IU/L (14-36); BUN Creatinine Ratio 12.3 (6-22); Blood Urea Nitrogen 17 mg/dL (7-17); Carbon Dioxide 18 mmol/L (22-32); Chloride 102 mmol/L (98-107); Estimated Glomerular Filt Rate 43 mL/min (>60); Ethanol (ETOH) < 10 mg/dL; Globulin 3.1 g/dL (1.7-4.1); Glucose 66 mg/dL (80-110); HEMOLYSIS 20 (0-50); Potassium 3.7 mmol/L (3.4-5.1); Sodium 137 mmol/L (137-145); Total Protein 5.6 g/dL (6.3-8.2)
[2023-05-24] MEDS: MIDAZOLAM 2 MG/2 ML VIAL IV (20:43)
[2023-05-24] MEDS: cefTRIAXone 1,000 MG in SODIUM CHLORIDE 0.9% 100 ML 200 MG IV (20:48)
[2023-05-24 20:52] LABS: INR 4.4 (0.9-1.3); Prothrombin Time 51.6 SECONDS (9.4-12.5)
--- NOTE | 2023-05-24 20:52 | ED.GENADULT ---
HPI - General Adult General Chief complaint: Syncope Time Seen by Provider: 05/24/23 20:20 Source: EMS Mode of arrival: EMS History of Present Illness HPI narrative: 63-year-old woman with a history of alcohol use disorder, ascites, known esophageal varices, cirrhosis followed by Dr. Ashwin jin at [facility] called medics today complaining weakness. On arrival they found her to be orthostatic with pressures below 60, tachycardic, at least 200 cc of santos blood in an emesis basin close by. She was transported to the emergency department and is continuing to vomit. Related Data Previous Rx's Medication Instructions Recorded tramadol 50 mg tablet 50 mg PO TID PRN pain #60 tabs 10/16/22 furosemide 20 mg tablet 20 mg PO BID #120 tabs 11/21/22 spironolactone 25 mg tablet 25 mg PO BID #120 tabs 11/21/22 Allergies Allergy/AdvReac Type Severity Reaction Status Date / Time Penicillins [PENICILLINS] Allergy Mild RASH Verified 05/24/23 20:47 lisinopril [LISINOPRIL] AdvReac Intermediate Nausea Verified 05/24/23 20:47 Redness of skin Review of Systems Review of Systems ROS Unobtainable: Unobtainable due to medical condition Patient History Medical History Alcoholic cirrhosis of liver with ascites Anemia Ascites due to alcoholic cirrhosis Esophageal varices determined by endoscopy ETOH abuse HTN (hypertension) Hyperbilirubinemia Hypokalemia Liver lesion Nausea Nutritional deficiency Patient denies significant medical history Skin lesion Umbilical hernia Surgical History Status post delivery Status post laparoscopic cholecystectomy (04/26/17) Family History Mother Cancer Gallstones Grandfather Heart disease Father Hypertension Prostate cancer Grandmother Breast cancer Family/Other Breast cancer Social History marital status: unmarried,single household members: none lives independently: Yes Smoking Status: Current every day smoker Tobacco: How many years used: 30 quit status: not considering quitting (Declined cessation handout) second hand exposure: No alcohol intake: current substance use type: does not use Smoking Status: Current every day smoker alcohol intake frequency: other Substance Use Type: does not use Exam Initial Vital Signs Initial Vital Signs: Vital Signs Temperature 97.6 F 05/24/23 20:10 Pulse Rate 124 H 05/24/23 20:10 Respiratory Rate 28 H 05/24/23 20:10 Blood Pressure 64/40 L 05/24/23 20:10 Pulse Oximetry 85 L 05/24/23 20:10 Oxygen Delivery Method Nasal Cannula 05/24/23 20:10 Oxygen Flow Rate 6 05/24/23 20:10 General: Acutely ill woman dramatically jaundiced dry mucous membranes, continuing to complain that she is going to vomit, globally weak and difficult to obtain history due to overall weakness HEENT: Dry mucous membranes, icteric sclera with reactive pupils, Neck: No JVD, supple Respiratory: Lungs are clear to auscultation, no wheezing no rales no rhonchi. Full and symmetrical air movement Cardiac: Tachycardic without murmurs. Abdomen: Soft, ascites, no tenderness to palpation Skin: Significantly jaundiced, multiple bruises in various stages of healing over all of her body Neurologic: Globally weak but moving all extremities purposefully Extremities: No obvious trauma, lower no lower extremity edema, cool extremities with poor distal perfusion Psych: Significantly weak, able to answer direct questions Procedures Central Line Placement Right IJ: Time of procedure: 20:30 Time Out Performed: Yes MD Prep: mask, gown and gloves Central Line Prep: Povidone-Iodine 1% Local Anesthetic: lidocaine 1% Amount of anesthesia used (mL): 2 Ultrasound Used for Placement: Yes Central Line Lumen Inserted: triple Post Procedure: sutured in place, good blood return, all ports aspirated, flushed, capped and sterile dressing applied Post Procedure X-Ray: tip of catheter in good position (after pulled back 4 cm) and no pneumothorax seen Intubation Time of Intubation: 21:43 Time out performed: Yes sedative: Etomidate Mg Given: 20 paralytic: Rocuronium Mg Given: 40 Assist Device Used: fiber optic device ET Tube Size: 7.5 ET Tube Uncuffed: No Tube Secured Depth (cm): 23 Tube Secured Location: lips Tube Placement Confirmation: Visualized tube passing through cords, Equal breath sounds bilaterally, No breath sounds over epigastrium, Confirmation by capnometry and Chest Xray Additional Comments: Large volume of gross blood from the esophagus. 250 cc suctioned from the posterior pharynx after cuff was inflated on the ET tube Course Orders Ordered: Discontinued Medications Dextrose (Dextrose 50 % In Water 25 Gm/50 Ml Syringe) 25 gm IV NOW ONE Stop: 05/24/23 21:05 Last Admin: 05/24/23 21:11 Dose: 25 gm Documented By: SB Etomidate (Etomidate 2 Mg/Ml 10 Ml Vial) 20 mg IV NOW ONE Stop: 05/24/23 21:26 Last Admin: 05/24/23 21:34 Dose: 20 mg Documented By: SB Tranexamic Acid 1,000 mg/ (Sodium Chloride) 100 mls @ 200 mls/hr IV NOW ONE Stop: 05/24/23 20:56 Last Infusion: 05/24/23 20:47 Dose: Infused Documented By: Admin: 05/24/23 20:29 Dose: 200 mls/hr Documented By: SB Octreotide Acetate 500 mcg/ (Sodium Chloride) 101 mls @ 10.1 mls/hr IV CONT RUBY; Protocol Last Admin: 05/25/23 05:32 Dose: 50 mcg/hr, 10.1 mls/hr Documented By: Infusion: 05/25/23 05:32 Dose: Infused Documented By: Admin: 05/24/23 20:37 Dose: 50 mcg/hr, 10.1 mls/hr Documented By: SB Ceftriaxone Sodium 1,000 mg/ (Sodium Chloride) 100 mls @ 200 mls/hr IV NOW ONE Stop: 05/24/23 20:40 Last Infusion: 05/24/23 21:18 Dose: Infused Documented By: Admin: 05/24/23 20:48 Dose: 200 mls/hr Documented By: SB NOREPINEPHRINE BITARTRATE/D5W (Levophed) 4 mg in 250 mls @ 22.5 mls/hr IV TITRATE RUBY; Protocol Last Admin: 05/25/23 04:51 Dose: 0.4 mcg/kg/min, 90 mls/hr Documented By: Titration: 05/25/23 04:51 Dose: Infused Documented By: Admin: 05/25/23 02:07 Dose: 0.4 mcg/kg/min, 90 mls/hr Documented By: Titration: 05/25/23 02:07 Dose: Infused Documented By: Titration: 05/25/23 01:07 Dose: 0.4 mcg/kg/min, 90 mls/hr Documented By: Titration: 05/25/23 00:55 Dose: 0.2 mcg/kg/min, 45 mls/hr Documented By: Titration: 05/24/23 23:45 Dose: 0.1 mcg/kg/min, 22.5 mls/hr Documented By: Titration: 05/24/23 22:44 Dose: 0.2 mcg/kg/min, 45 mls/hr Documented By: Titration: 05/24/23 22:24 Dose: 0.3 mcg/kg/min, 67.5 mls/hr Documented By: Titration: 05/24/23 22:14 Dose: 0.2 mcg/kg/min, 45 mls/hr Documented By: Titration: 05/24/23 21:42 Dose: 0.3 mcg/kg/min, 67.5 mls/hr Documented By: Titration: 05/24/23 21:22 Dose: 0.2 mcg/kg/min, 45 mls/hr Documented By: Admin: 05/24/23 20:53 Dose: 0.1 mcg/kg/min, 22.5 mls/hr Documented By: SB Midazolam HCl 50 mg/ Dextrose 50 mls @ 5 mls/hr IV TITRATE PRN; Protocol PRN Reason: intubation Last Admin: 05/25/23 03:28 Dose: 8 mg/hr, 8 mls/hr Documented By: Titration: 05/25/23 03:28 Dose: Infused Documented By: Titration: 05/24/23 22:52 Dose: 8 mg/hr, 8 mls/hr Documented By: Titration: 05/24/23 22:45 Dose: 7.5 mg/hr, 7.5 mls/hr Documented By: Admin: 05/24/23 22:03 Dose: 5 mg/hr, 5 mls/hr Documented By: SB Sodium Chloride (Normal Saline 0.9%) 1,000 mls @ 1,000 mls/hr IV BOLUS ONE Stop: 05/25/23 05:01 Last Infusion: 05/25/23 05:10 Dose: Infused Documented By: Admin: 05/25/23 04:05 Dose: 1,000 mls/hr Documented By: GERMÁN Midazolam HCl (Midazolam 2 Mg/2 Ml Vial) 2 mg IV NOW ONE Stop: 05/24/23 20:41 Last Admin: 05/24/23 20:43 Dose: 2 mg Documented By: GERMÁN Midazolam HCl (Midazolam 5 Mg/Ml Vial) 4 mg IV NOW ONE Stop: 05/24/23 21:26 Last Admin: 05/24/23 22:51 Dose: 4 mg Documented By: GERMÁN Midazolam HCl (Midazolam 5 Mg/Ml Vial) 4 mg IV NOW ONE Stop: 05/25/23 01:15 Last Admin: 05/25/23 01:19 Dose: 4 mg Documented By: GERMÁN Ondansetron HCl (Ondansetron 4 Mg/2 Ml Inj) 4 mg IV NOW PRN PRN Reason: Nausea And Vomiting Last Admin: 05/24/23 20:06 Dose: 4 mg Documented By: GERMÁN Ondansetron HCl (Ondansetron 4 Mg Odt) 4 mg SL NOW PRN PRN Reason: Nausea And Vomiting Pantoprazole Sodium (Pantoprazole 40 Mg Vial) 80 mg IV NOW ONE Stop: 05/24/23 20:25 Last Admin: 05/24/23 20:29 Dose: 80 mg Documented By: GERMÁN Rocuronium [place] (Rocuronium 50 Mg/5 Ml Inj) 40 mg IV NOW ONE Stop: 05/24/23 21:26 Last Admin: 05/24/23 21:34 Dose: 40 mg Documented By: GERMÁN Vital Signs Vital signs: Vital Signs - 8 hr 05/24/23 21:10 05/24/23 21:10 05/24/23 21:11 Temperature Pulse Rate 125 H 123 H Respiratory Rate 31 H 37 H Blood Pressure 121/56 L Pulse Oximetry 88 L 86 L Oxygen Delivery Method 05/24/23 21:11 05/24/23 21:15 05/24/23 21:15 Temperature Pulse Rate 123 H Respiratory Rate 31 H Blood Pressure 85/51 L 113/54 L Pulse Oximetry 100 Oxygen Delivery Method 05/24/23 21:21 05/24/23 21:21 05/24/23 21:25 Temperature Pulse Rate 125 H Respiratory Rate 34 H Blood Pressure 78/6 L 106/59 L Pulse Oximetry 80 L Oxygen Delivery Method 05/24/23 21:25 05/24/23 21:30 05/24/23 21:31 Temperature Pulse Rate 126 H 128 H 126 H Respiratory Rate 42 H 36 H 32 H Blood Pressure Pulse Oximetry 75 L 100 100 Oxygen Delivery Method 05/24/23 21:31 05/24/23 21:39 05/24/23 21:39 Temperature Pulse Rate 133 H Respiratory Rate 50 H Blood Pressure 55/40 L 80/39 L Pulse Oximetry 95 Oxygen Delivery Method 05/24/23 21:40 05/24/23 21:40 05/24/23 21:44 Temperature Pulse Rate 131 H Respiratory Rate 19 Blood Pressure 79/35 L 98/49 L Pulse Oximetry 91 Oxygen Delivery Method 05/24/23 21:44 05/24/23 21:45 05/24/23 21:45 Temperature Pulse Rate 132 H 132 H Respiratory Rate 15 15 Blood Pressure 92/63 Pulse Oximetry 88 L Oxygen Delivery Method 05/24/23 21:50 05/24/23 21:50 05/24/23 21:55 Temperature Pulse Rate 134 H 137 H Respiratory Rate 15 16 Blood Pressure 134/98 H Pulse Oximetry 89 L 87 L Oxygen Delivery Method 05/24/23 21:55 05/24/23 21:57 05/24/23 21:57 Temperature Pulse Rate 135 H Respiratory Rate 16 Blood Pressure 161/74 H 163/91 H Pulse Oximetry 87 L Oxygen Delivery Method 05/24/23 22:00 05/24/23 22:24 05/24/23 22:38 Temperature Pulse Rate 135 H 123 H Respiratory Rate 18 Blood Pressure 77/54 L Pulse Oximetry 81 L 100 Oxygen Delivery Method 05/24/23 22:39 05/24/23 22:41 05/24/23 22:43 Temperature Pulse Rate 125 H 122 H 126 H Respiratory Rate 16 16 16 Blood Pressure Pulse Oximetry 100 99 100 Oxygen Delivery Method 05/24/23 22:45 05/24/23 22:50 05/24/23 23:00 Temperature Pulse Rate 122 H 125 H Respiratory Rate 16 16 Blood Pressure 118/53 L Pulse Oximetry 86 L 82 L Oxygen Delivery Method 05/24/23 23:00 05/24/23 23:09 05/24/23 23:09 Temperature Pulse Rate 118 H 116 H Respiratory Rate 19 16 Blood Pressure 116/57 L Pulse Oximetry 96 93 Oxygen Delivery Method 05/24/23 23:10 05/24/23 23:10 05/24/23 23:15 Temperature Pulse Rate 116 H Respiratory Rate 16 Blood Pressure 114/58 L 143/66 H Pulse Oximetry 93 Oxygen Delivery Method 05/24/23 23:15 05/24/23 23:20 05/24/23 23:20 Temperature Pulse Rate 119 H 123 H Respiratory Rate 17 19 Blood Pressure 155/67 H Pulse Oximetry 96 95 Oxygen Delivery Method 05/24/23 23:25 05/24/23 23:25 05/24/23 23:30 Temperature 91.9 F L 93.0 F L Pulse Rate 123 H 122 H Respiratory Rate 19 17 Blood Pressure 143/64 H Pulse Oximetry 95 97 Oxygen Delivery Method 05/24/23 23:30 05/24/23 23:35 05/24/23 23:35 Temperature 93.6 F L Pulse Rate 118 H Respiratory Rate 17 Blood Pressure 131/63 137/63 Pulse Oximetry 97 Oxygen Delivery Method 05/24/23 23:40 05/24/23 23:40 05/24/23 23:45 Temperature 93.7 F L Pulse Rate 117 H Respiratory Rate 19 Blood Pressure 141/66 H 128/61 Pulse Oximetry 100 Oxygen Delivery Method 05/24/23 23:45 05/24/23 23:50 05/24/23 23:50 Temperature 93.9 F L 93.9 F L Pulse Rate 117 H 119 H Respiratory Rate 17 23 Blood Pressure 118/58 L Pulse Oximetry 99 98 Oxygen Delivery Method 05/24/23 23:55 05/24/23 23:55 05/25/23 00:00 Temperature 93.9 F L 93.9 F L Pulse Rate 120 H 121 H Respiratory Rate 20 20 Blood Pressure 124/60 Pulse Oximetry 99 100 Oxygen Delivery Method 05/25/23 00:00 05/25/23 00:05 05/25/23 00:05 Temperature 93.9 F L Pulse Rate 120 H Respiratory Rate 19 Blood Pressure 120/57 L 141/58 H Pulse Oximetry 100 Oxygen Delivery Method 05/25/23 00:10 05/25/23 00:10 05/25/23 00:15 Temperature 93.9 F L Pulse Rate 121 H Respiratory Rate 20 Blood Pressure 108/55 L 96/54 L Pulse Oximetry 100 Oxygen Delivery Method 05/25/23 00:15 05/25/23 00:20 05/25/23 00:20 Temperature 93.9 F L 94.1 F L Pulse Rate 121 H 121 H Respiratory Rate 22 23 Blood Pressure 96/52 L Pulse Oximetry 100 100 Oxygen Delivery Method 05/25/23 00:25 05/25/23 00:25 05/25/23 02:15 Temperature 94.1 F L 95.4 F L Pulse Rate 122 H 125 H Respiratory Rate 22 27 H Blood Pressure 93/49 L Pulse Oximetry 97 96 Oxygen Delivery Method Mechanical Ventilation 05/25/23 02:15 05/25/23 02:20 05/25/23 02:20 Temperature 95.5 F L Pulse Rate 125 H Respiratory Rate 29 H Blood Pressure 103/51 L 95/42 L Pulse Oximetry 97 Oxygen Delivery Method 05/25/23 02:25 05/25/23 02:25 05/25/23 02:30 Temperature 95.5 F L 95.5 F L Pulse Rate 125 H 126 H Respiratory Rate 27 H 28 H Blood Pressure 90/40 L Pulse Oximetry 97 97 Oxygen Delivery Method 05/25/23 02:30 05/25/23 02:35 05/25/23 02:35 Temperature 95.7 F L Pulse Rate 126 H Respiratory Rate 30 H Blood Pressure 102/42 L 86/37 L Pulse Oximetry 97 Oxygen Delivery Method 05/25/23 02:37 05/25/23 02:40 05/25/23 02:40 Temperature 95.7 F L 95.7 F L Pulse Rate 16 L 125 H Respiratory Rate 16 29 H Blood Pressure 86/37 L 97/46 L Pulse Oximetry 97 Oxygen Delivery Method 05/25/23 02:45 05/25/23 02:45 05/25/23 02:50 Temperature 95.7 F L 95.9 F L Pulse Rate 125 H 125 H Respiratory Rate 30 H 31 H Blood Pressure 102/41 L Pulse Oximetry 97 97 Oxygen Delivery Method 05/25/23 02:50 05/25/23 02:54 05/25/23 02:55 Temperature 95.9 F L 95.9 F L Pulse Rate 124 H 124 H Respiratory Rate 16 29 H Blood Pressure 92/55 L 92/55 L Pulse Oximetry 97 Oxygen Delivery Method 05/25/23 02:55 05/25/23 03:00 05/25/23 03:00 Temperature 95.9 F L Pulse Rate 124 H Respiratory Rate 29 H Blood Pressure 97/53 L 100/59 L Pulse Oximetry 97 Oxygen Delivery Method 05/25/23 03:05 05/25/23 03:05 05/25/23 03:10 Temperature 96.1 F L 96.1 F L Pulse Rate 124 H 124 H Respiratory Rate 31 H 31 H Blood Pressure 110/53 L Pulse Oximetry 96 96 Oxygen Delivery Method 05/25/23 03:10 05/25/23 03:15 05/25/23 03:15 Temperature 96.1 F L Pulse Rate 122 H Respiratory Rate 29 H Blood Pressure 96/59 L 98/56 L Pulse Oximetry 98 Oxygen Delivery Method 05/25/23 03:17 05/25/23 03:20 05/25/23 03:20 Temperature 96.1 F L 96.1 F L Pulse Rate 123 H 122 H Respiratory Rate 16 29 H Blood Pressure 98/56 L 102/50 L Pulse Oximetry 97 Oxygen Delivery Method 05/25/23 03:25 05/25/23 03:25 05/25/23 03:25 Temperature 96.3 F L 96.3 F L Pulse Rate 123 H 123 H Respiratory Rate 16 34 H Blood Pressure 101/44 L 101/44 L Pulse Oximetry 97 Oxygen Delivery Method 05/25/23 03:30 05/25/23 03:30 05/25/23 03:30 Temperature 96.3 F L 96.3 F L Pulse Rate 122 H 121 H Respiratory Rate 20 31 H Blood Pressure 98/46 L 98/46 L Pulse Oximetry 97 Oxygen Delivery Method 05/25/23 03:40 05/25/23 03:40 05/25/23 03:45 Temperature 96.3 F L 96.3 F L Pulse Rate 121 H 122 H Respiratory Rate 30 H 33 H Blood Pressure 104/65 Pulse Oximetry 98 98 Oxygen Delivery Method 05/25/23 03:45 05/25/23 03:50 05/25/23 03:50 Temperature 96.4 F L 96.3 F L Pulse Rate 120 H 120 H Respiratory Rate 22 33 H Blood Pressure 109/57 L 105/47 L Pulse Oximetry 98 Oxygen Delivery Method 05/25/23 03:50 05/25/23 03:55 05/25/23 03:55 Temperature 96.4 F L Pulse Rate 122 H Respiratory Rate 33 H Blood Pressure 105/47 L 102/50 L Pulse Oximetry 99 Oxygen Delivery Method 05/25/23 04:00 05/25/23 04:00 05/25/23 04:05 Temperature 96.4 F L 96.4 F L Pulse Rate 121 H 123 H Respiratory Rate 31 H 32 H Blood Pressure 103/51 L Pulse Oximetry 98 98 Oxygen Delivery Method 05/25/23 04:05 05/25/23 04:10 05/25/23 04:10 Temperature 96.4 F L Pulse Rate 122 H Respiratory Rate 34 H Blood Pressure 111/51 L 114/54 L Pulse Oximetry 98 Oxygen Delivery Method 05/25/23 04:16 05/25/23 04:20 05/25/23 04:20 Temperature 96.4 F L 96.4 F L Pulse Rate 122 H 122 H Respiratory Rate 34 H 31 H Blood Pressure 96/70 Pulse Oximetry 98 98 Oxygen Delivery Method Mechanical Ventilation Medical Decision Making Lab Data 05/25/23 03:12 05/25/23 04:18 Labs: Lab Results 05/24/23 05/24/23 05/24/23 Range/Units 20:20 20:30 21:37 WBC 9.0 (4.5-11.0) X10^3/uL RBC 2.75 L (4.0-5.2) X10^6/uL Hgb 10.2 L 8.1 L (12.0-16.0) g/dL Hct 30.5 L 24.3 L (36-46) % MCV 110.6 H (80-100) fL MCH 36.9 H (26-34) PG MCHC 33.4 (30-36) % RDW 21.5 H (11.6-14.8) % Plt Count 102 L (150-400) X10^3/uL Neut % (Auto) 87.6 H (50-75) % Lymph % (Auto) 4.8 L (25-40) % [place] % (Auto) 6.8 (3-14) % Eos % (Auto) 0.5 L (2-4) % Baso % (Auto) 0.3 (0-2) % Neut # (Auto) 7900 H (5557-8800) /uL Lymph # (Auto) 400 L (1342-4919) /uL [place] # (Auto) 600 (0-900) /uL Eos # (Auto) 0 (0-450) /uL Baso # (Auto) 0 (0-100) /uL RBC Morphology See below Anisocytosis 3+ H Microcytosis 1+ H Macrocytosis 2+ H Tear Drop Cells 1+ H Elmo Cells 1+ H PT 51.6 H (9.4-12.5) SECONDS INR 4.4 H (0.9-1.3) APTT 57 H (25.1-36.5) SECONDS ABG pH (7.35-7.45) ABG pCO2 (35-45) mmHg ABG pO2 (80-100) mmHg ABG HCO3 (23-27) mmol/L ABG Total CO2 (23-27) mmol/L ABG O2 Saturation (95-100) % ABG Base Excess (-2-3) mmol/L FiO2 Sodium 137 (137-145) mmol/L Potassium 3.7 (3.4-5.1) mmol/L Chloride 102 (98-107) mmol/L Carbon Dioxide 18 L (22-32) mmol/L BUN 17 (7-17) mg/dL Creatinine 1.38 H (0.52-1.04) mg/dL Estimated GFR 43 L (>60) mL/min BUN/Creatinine Ratio 12.3 (6-22) Glucose 66 L (80-110) mg/dL Calcium 8.0 L (8.4-10.2) mg/dL Total Bilirubin 11.0 H (0.2-1.3) mg/dL AST 390 H (14-36) IU/L ALT 34 (<35) IU/L Alkaline Phosphatase 105 (38-126) U/L Total Protein 5.6 L (6.3-8.2) g/dL Albumin 2.5 L (3.5-5.0) g/dL Globulin 3.1 (1.7-4.1) g/dL Albumin/Globulin Ratio 0.8 L (1.0-2.8) Urine RBC (0-5/HPF) Urine WBC (0-5/HPF) Ur Squamous Epith Cells (0-5/HPF) Amorphous Sediment Urine Bacteria (None) Ur Culture Indicated? Ethyl Alcohol < 10 ( - 10) mg/dL SARS-CoV-2 (PCR) (Negative) Blood Type O Negative Antibody Screen Negative Crossmatch See Detail 05/24/23 05/25/23 05/25/23 Range/Units 23:50 00:00 03:12 WBC (4.5-11.0) X10^3/uL RBC (4.0-5.2) X10^6/uL Hgb 10.5 L 13.6 (12.0-16.0) g/dL Hct 31.0 L 41.2 (36-46) % MCV (80-100) fL MCH (26-34) PG MCHC (30-36) % RDW (11.6-14.8) % Plt Count (150-400) X10^3/uL Neut % (Auto) (50-75) % Lymph % (Auto) (25-40) % [place] % (Auto) (3-14) % Eos % (Auto) (2-4) % Baso % (Auto) (0-2) % Neut # (Auto) (0213-0083) /uL Lymph # (Auto) (1879-1493) /uL [place] # (Auto) (0-900) /uL Eos # (Auto) (0-450) /uL Baso # (Auto) (0-100) /uL RBC Morphology Anisocytosis Microcytosis Macrocytosis Tear Drop Cells Sindy Cells PT (9.4-12.5) SECONDS INR (0.9-1.3) APTT (25.1-36.5) SECONDS ABG pH (7.35-7.45) ABG pCO2 (35-45) mmHg ABG pO2 (80-100) mmHg ABG HCO3 (23-27) mmol/L ABG Total CO2 (23-27) mmol/L ABG O2 Saturation (95-100) % ABG Base Excess (-2-3) mmol/L FiO2 Sodium (137-145) mmol/L Potassium (3.4-5.1) mmol/L Chloride (98-107) mmol/L Carbon Dioxide (22-32) mmol/L BUN (7-17) mg/dL Creatinine (0.52-1.04) mg/dL Estimated GFR (>60) mL/min BUN/Creatinine Ratio (6-22) Glucose (80-110) mg/dL Calcium (8.4-10.2) mg/dL Total Bilirubin (0.2-1.3) mg/dL AST (14-36) IU/L ALT (<35) IU/L Alkaline Phosphatase (38-126) U/L Total Protein (6.3-8.2) g/dL Albumin (3.5-5.0) g/dL Globulin (1.7-4.1) g/dL Albumin/Globulin Ratio (1.0-2.8) Urine RBC 5-10/hpf H (0-5/HPF) Urine WBC 1-5/hpf (0-5/HPF) Ur Squamous Epith Cells 0-1 /hpf (0-5/HPF) Amorphous Sediment 4+ Urine Bacteria Occasional (0-1) (None) Ur Culture Indicated? Cult not indicated Ethyl Alcohol ( - 10) mg/dL SARS-CoV-2 (PCR) Negative (Negative) Blood Type Antibody Screen Crossmatch 05/25/23 05/25/23 Range/Units 04:18 11:30 WBC (4.5-11.0) X10^3/uL RBC (4.0-5.2) X10^6/uL Hgb (12.0-16.0) g/dL Hct (36-46) % MCV (80-100) fL MCH (26-34) PG MCHC (30-36) % RDW (11.6-14.8) % Plt Count (150-400) X10^3/uL Neut % (Auto) (50-75) % Lymph % (Auto) (25-40) % [place] % (Auto) (3-14) % Eos % (Auto) (2-4) % Baso % (Auto) (0-2) % Neut # (Auto) (1025-6811) /uL Lymph # (Auto) (1092-2442) /uL [place] # (Auto) (0-900) /uL Eos # (Auto) (0-450) /uL Baso # (Auto) (0-100) /uL RBC Morphology Anisocytosis Microcytosis Macrocytosis Tear Drop Cells [place] Cells PT (9.4-12.5) SECONDS INR (0.9-1.3) APTT (25.1-36.5) SECONDS ABG pH 7.14 L* (7.35-7.45) ABG pCO2 42.6 (35-45) mmHg ABG pO2 471 H* (80-100) mmHg ABG HCO3 15 L (23-27) mmol/L ABG Total CO2 16 L (23-27) mmol/L ABG O2 Saturation 100 (95-100) % ABG Base Excess -15.0 L (-2-3) mmol/L FiO2 100 Sodium 135 L (137-145) mmol/L Potassium 4.9 D (3.4-5.1) mmol/L Chloride 100 (98-107) mmol/L Carbon Dioxide 12 L (22-32) mmol/L BUN 16 (7-17) mg/dL Creatinine 1.90 H (0.52-1.04) mg/dL Estimated GFR 29 L (>60) mL/min BUN/Creatinine Ratio 8.4 (6-22) Glucose 169 H D (80-110) mg/dL Calcium 7.6 L (8.4-10.2) mg/dL Total Bilirubin 11.1 H (0.2-1.3) mg/dL AST > 1500 H (14-36) IU/L ALT 142 H (<35) IU/L Alkaline Phosphatase 78 (38-126) U/L Total Protein 5.4 L (6.3-8.2) g/dL Albumin 2.6 L (3.5-5.0) g/dL Globulin 2.8 (1.7-4.1) g/dL Albumin/Globulin Ratio 0.9 L (1.0-2.8) Urine RBC (0-5/HPF) Urine WBC (0-5/HPF) Ur Squamous Epith Cells (0-5/HPF) Amorphous Sediment Urine Bacteria (None) Ur Culture Indicated? Ethyl Alcohol ( - 10) mg/dL SARS-CoV-2 (PCR) (Negative) Blood Type Antibody Screen Crossmatch Point of Care Testing Stool Occult Blood Positive Glucose POC 183 Urine Dip Bedside Urine Glucose Negative Bedside Urine Bilirubin - Negative Bedside Urine Ketone - Negative Urine Specific [place] 1.015 Bedside Urine Occult Blood +++ Bedside Urine pH 6.0 Bedside Urine Protein + 30 Bedside Urine Urobilinogen - Negative Bedside Urine Nitrite - Negative Bedside Urine Leukocytes - Negative Esterase Point of care testing: Point of Care Testing Stool Occult Blood Positive Glucose POC 183 Urine Dip Bedside Urine Glucose Negative Bedside Urine Bilirubin - Negative Bedside Urine Ketone - Negative Urine Specific [place] 1.015 Bedside Urine Occult Blood +++ Bedside Urine pH 6.0 Bedside Urine Protein + 30 Bedside Urine Urobilinogen - Negative Bedside Urine Nitrite - Negative Bedside Urine Leukocytes - Negative Esterase Imaging Data CT of the chest abdomen and pelvis: Radiologist's Impression: PROCEDURE: CT CHEST ABD PEL W CON INDICATIONS: severe variceal bleeding TECHNIQUE: After the administration of oral and intravenous contrast, axial sections acquired from the supraclavicular neck to the pubic symphysis. Coronal and sagittal reformats were performed. For radiation dose reduction, the following was used: automated exposure control, adjustment of mA and/or kV according to patient size. COMPARISON: None. FINDINGS: Image quality: Excellent. CHEST: Lower Neck: No enlarged lymph nodes. Thyroid: Within normal limits. Axillae: No enlarged lymph nodes. Chest Wall: Unremarkable. Lungs and Airways: Mild areas of patchy ground-glass opacity can be seen. Dependent atelectasis is seen. No suspicious pulmonary nodules are seen. The endotracheal tube tip is seen 3 cm above the alejandro. Pleura: No pneumothorax or pleural effusions. Heart: Heart size is normal. No pericardial effusion. Thoracic Vessels: The aorta and pulmonary arteries demonstrate normal size. Mediastinum and Nelda: No enlarged lymph nodes. Esophagus: Hyperdense material can be seen within the esophagus, which is consistent with reflux. ABDOMEN: Liver: A cirrhotic liver is seen, with patchy irregular enhancement. Gallbladder: Cholecystectomy. Biliary ducts: No biliary dilation. Pancreas: No ductal dilation. Spleen: Size is within normal limits. Adrenal Glands: No adrenal nodules. Kidneys and Ureters: No hydronephrosis. No solid mass. No complex renal cystic lesion which requires follow up. Stomach and Bowel: The tip of the gastric tube can be seen within the fundus of the stomach. Hyperdensity can be seen within the stomach. No findings of active extravasation can be seen. Generalized prominence of the small bowel can be seen, measuring up to 3.6 cm. The colon is relatively decompressed. There is moderate wall thickening seen throughout the colon. There is hyperdense material seen within the distal small bowel and within the colon. Peritoneum: Moderate low-density ascites is seen. No free air. Ventral Wall: There is a fluid containing periumbilical hernia. Abdominal Nodes: No retroperitoneal or mesenteric adenopathy by size criteria. Vessels: The aorta demonstrates normal caliber. The IVC is thin. Atherosclerotic calcification is noted. PELVIS: Pelvic Organs: The uterus appears normal for age. No adnexal masses are seen. Bladder: Unremarkable. Pelvic Nodes: No enlarged lymph nodes. Miscellaneous: No inguinal hernias are seen. Bones: A vascular necrosis can be seen involving the weight-bearing surface of the superior right femoral head. Additional likely AVN can be seen involving the left femoral head. No santos cortical collapse can be seen. Age-appropriate bony degenerative changes are seen. IMPRESSION: Hyperdense material can be seen within the stomach as well as within the distal small bowel and the colon, which is consistent with recent intraluminal hemorrhage. No findings of active hemorrhage can be seen. Thinning of the IVC is seen, which is suspicious for volume depletion. The tip of the endotracheal tube is seen 3 cm above the alejandro. The tip of the gastric tube can be seen at the fundus of the stomach. Cirrhotic liver seen. Moderate low-density ascites is seen. Patchy ground-glass opacity can be seen within the lungs. The appearance is nonspecific, although please consider areas of pulmonary edema versus atypical infection. Additional findings: Cholecystectomy Fluid containing periumbilical hernia Apparent AVN seen of the femoral heads, right worse than left. Dictated by: Jluis Red M.D. on 05/24/2023 at 21:49 MDM Narrative Medical decision making narrative: CC: Dramatic hypotension with obvious large upper GI bleed Complicating co-morbidities: Alcohol use disorder with ascites and known esophageal varices Data collected from: patient, medics Social determinants of health that may influence the patients condition: Alcohol use, cirrhosis Medical records reviewed: Records from [facility]. GI progress note from January of this year indicates the patient has been avoiding alcohol since June of 2022. She had a history of esophageal variceal banding in 2019. At the time noted that her ascites has been improving with diuretics. Family practice notes for review of progressive ascites with umbilical hernia reviewed. Noted worsening liver function and progressive accumulation of ascites with evidence of portal hypertension Differential considered: Massive upper GI bleed, liver failure. No obvious evidence for infectious source to suggest sepsis Exam documented above, pertinent findings include: Patient is dramatically jaundiced vomiting bright red blood, tachycardic, hypotensive, able to answer direct questions only and significantly hypoxic. Lab Test results independently reviewed as above. Pertinent findings: CBC shows initial white count at 9 and initial H&H is 10.2 and 30.5 with ongoing active upper GI bleeding Noted INR is 4.4, PTT is elevated at 57 Chemistries are notable for increasing creatinine from her baseline around 0.6 up to 1.38. Sodium and potassium are appropriate. She is hypoglycemic, glucose will be administered. Calcium low at 8.0 Liver studies show bilirubin increased to 11, AST at 390 ALT and alk-phos are within normal limits Imaging studies independently reviewed: CXR no significant pathology -appropriately positioned central line and ET tube. Significant findings with CT scan of the abdomen are mild cirrhosis, mild ascites no obvious masses tumors or additional findings. 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 Consultations: 915pm Dr Armando, GI at [facility] 930 no ICU beds at [facility], [facility] and [facility], [facility], [facility] transfer center - likely no capacity. will talk with their medical ICU doctor. Recommended discussion with [facility] as well 1120 discussion with [facility] 115am Phone call from [facility] in [facility]. Spoke with Dr. Salas, the automobile service station manager. They do have an ICU bed available and he is able to scope and band the patient if needed however if the banding is not successful or she needs additional treatment next step would be a tips procedure and they are not able to do that at his facility. Given the significant distance in transfer we decided to re-contact [facility] and make sure that facilities that we are considering transfer to also have capacity to do tips procedure. If all else fails, Dr. Salas said he would accept the patient in transfer 2am Dr Gtz, supervising librarian at [facility] accepts the patient pending bed availability. Care is reviewed. He agreed that additional unit of blood and platelets when they are available do make sense. Code discussion with daughter. For the time being as this is an acute process would like to proceed with full code which seems completely appropriate Child-Jaime Score for Cirrhosis Mortality RESULT SUMMARY: 13 points Child Class C Life Expectancy : 1-3 years Abdominal surgery nolan-operative mortality: 82% INPUTS: Bilirubin (Total) ?> 3 = >3 mg/dL (>51.3 ?mol/L) Albumin ?> 3 = <2.8 g/dL (<28 g/L) INR ?> 3 = >2.3 Ascites ?> 3 = Moderate Encephalopathy ?> 1 = No Encephalopathy Treatments: On arrival IVs were attempted and central line is placed. Initial pressures were unobtainable, after fluid boluses started pressure of 60 systolic was appreciated. 2 units of uncross matched red blood cells were immediately ordered along with TXA. Additional initial medications include Zofran, pantoprazole and an octreotide drip was started. Re-evaluations: After initial evaluation with central line now in place patient still is significantly hypoxic with decreasing mental status and increasing agitation. High-flow oxygen is started as non-rebreather still has saturations in the upper 80s/low 90s. 2 units of blood have been given. Two additional units were ordered and massive transfusion protocol initiated. Requested 2 units of FFP as well. For her agitation she is given 2 mg of IV midazolam. Pressures continue to remain significantly low and norepinephrine drip is started. She is given ceftriaxone. 1050pm patient has had at least 1200 cc of santos blood out of her stomach while in the emergency department. 11pm Levophed has been able to be decreased to point to mics. There does not appear to be a dramatic amount of blood still coming from the OG tube. Blood pressure currently is at 118/53. She is tolerating the sedation appropriately. She has had a total of 4 units of packed cells and is working on her 2nd FFP currently 1120 current vent settings are tidal volume of 400, respiratory rate of 16, peep of 7, FiO2 of 100 with oxygen saturations at 94% 3am bed is available. Airlift is not available until 4:30 a.m.. Fifth unit of blood is being transfused, platelets will be started. Patient remains tachycardic at 124 with systolic pressures 100/59 with a map of 75. 4am patient is re-evaluated. She is had almost no urine output in the 7 hours that she is been in the emergency department. Repeat H&H is up to 13.6 and 41.2 with continued tachycardia and hypotension. Lungs remain essentially clear I am not concerned with significant volume overload. We will add a L of crystalloid and see if expanding total blood volume helps further perfused her kidneys. We will repeat basic metabolic panel to see what kidney function is doing prior to transport. Expect transport within the next 30 minutes. 5am transport available. Pt remains unchanged. Still no significant output, a small bolus of fluid did not change this. Chemistries return and creatinine is increased from 1.38-1.9. AST is increased from 392 greater than 1500. Bili has gone from 11-11.1. Discussion: 63-year-old woman with history of alcohol use disorder returned to use according to her daughter, presents with massive esophageal variceal bleeding. Persistent hypotension despite aggressive blood resuscitation. Massive transfusion protocol was activated. TXA given on arrival. Octreotide and Protonix drips initiated. Documented at least 1500 cc of santos blood out of her stomach. She has been intubated. Continue Versed for sedation with concerns for acute alcohol withdrawal syndrome as well. Initial alcohol level was 0. Currently on Levophed for additional pressor support. Significant challenges in finding ICU bed availability for this lady. Eventually likely to be accepted at [facility]. Did review findings with her daughter as well as her son. Both agree with full code at this time. Patient remains critical Critical Care Time Critical Care Time Critical Care Time: Yes Total Critical Care Time: 240 Attestation: Critical care time is separate from other billable procedures. There is a high probability of a significant, sudden or life-threatening deterioration that requires my full and direct attention, intervention and personal management. This critical care time includes consultation with family and other consulting doctors, review of records, and interpretation of data from labs, EKGs and imaging as well as managements of message GI bleeding, respiratory failure, liver failure. Significant time spent in consultation with multiple facilities to find appropriate bed availability Discharge Plan Departure Patient Disposition: [facility] Clinical Impression: Acute upper GI hemorrhage, ABLA (acute blood loss anemia), Respiratory failure, Alcoholic liver failure, Acute kidney injury Alcoholic cirrhosis of liver Qualifiers: Ascites presence: with ascites Qualified Code(s): K70.31 - Alcoholic cirrhosis of liver with ascites Prescriptions: No Action tramadol 50 mg tablet 50 mg PO TID PRN (Reason: pain) Qty: 60 1RF furosemide 20 mg tablet 20 mg PO BID Qty: 120 5RF Rx Instructions: take at 9am spironolactone 25 mg tablet 25 mg PO BID Qty: 120 5RF Rx Instructions: take at 3 pm Referrals: Sergo Hardin DO [Primary Care Provider] -
[2023-05-24] MEDS: NOREPINEPHRINE BITARTRATE/D5W 4 MG/250 ML PLAST..BAG 22.5 MG IV (20:53)
[2023-05-24 20:54] LABS: PTT Partial Thromboplastin Tim 57 SECONDS (25.1-36.5)
[2023-05-24] MEDS: DEXTROSE 50 % IN WATER 25 GM/50 ML SYRINGE IV (21:11)
--- NOTE | 2023-05-24 21:28 | DI.CT.S_ITS ---
PROCEDURE: CT CHEST ABD PEL W CON INDICATIONS: severe variceal bleeding TECHNIQUE: After the administration of oral and intravenous contrast, axial sections acquired from the supraclavicular neck to the pubic symphysis. Coronal and sagittal reformats were performed. For radiation dose reduction, the following was used: automated exposure control, adjustment of mA and/or kV according to patient size. COMPARISON: None. FINDINGS: Image quality: Excellent. CHEST: Lower Neck: No enlarged lymph nodes. Thyroid: Within normal limits. Axillae: No enlarged lymph nodes. Chest Wall: Unremarkable. Lungs and Airways: Mild areas of patchy ground-glass opacity can be seen. Dependent atelectasis is seen. No suspicious pulmonary nodules are seen. The endotracheal tube tip is seen 3 cm above the alejandro. Pleura: No pneumothorax or pleural effusions. Heart: Heart size is normal. No pericardial effusion. Thoracic Vessels: The aorta and pulmonary arteries demonstrate normal size. Mediastinum and Nelda: No enlarged lymph nodes. Esophagus: Hyperdense material can be seen within the esophagus, which is consistent with reflux. ABDOMEN: Liver: A cirrhotic liver is seen, with patchy irregular enhancement. Gallbladder: Cholecystectomy. Biliary ducts: No biliary dilation. Pancreas: No ductal dilation. Spleen: Size is within normal limits. Adrenal Glands: No adrenal nodules. Kidneys and Ureters: No hydronephrosis. No solid mass. No complex renal cystic lesion which requires follow up. Stomach and Bowel: The tip of the gastric tube can be seen within the fundus of the stomach. Hyperdensity can be seen within the stomach. No findings of active extravasation can be seen. Generalized prominence of the small bowel can be seen, measuring up to 3.6 cm. The colon is relatively decompressed. There is moderate wall thickening seen throughout the colon. There is hyperdense material seen within the distal small bowel and within the colon. Peritoneum: Moderate low-density ascites is seen. No free air. Ventral Wall: There is a fluid containing periumbilical hernia. Abdominal Nodes: No retroperitoneal or mesenteric adenopathy by size criteria. Vessels: The aorta demonstrates normal caliber. The IVC is thin. Atherosclerotic calcification is noted. PELVIS: Pelvic Organs: The uterus appears normal for age. No adnexal masses are seen. Bladder: Unremarkable. Pelvic Nodes: No enlarged lymph nodes. Miscellaneous: No inguinal hernias are seen. Bones: A vascular necrosis can be seen involving the weight-bearing surface of the superior right femoral head. Additional likely AVN can be seen involving the left femoral head. No santos cortical collapse can be seen. Age-appropriate bony degenerative changes are seen. IMPRESSION: Hyperdense material can be seen within the stomach as well as within the distal small bowel and the colon, which is consistent with recent intraluminal hemorrhage. No findings of active hemorrhage can be seen. Thinning of the IVC is seen, which is suspicious for volume depletion. The tip of the endotracheal tube is seen 3 cm above the alejandro. The tip of the gastric tube can be seen at the fundus of the stomach. Cirrhotic liver seen. Moderate low-density ascites is seen. Patchy ground-glass opacity can be seen within the lungs. The appearance is nonspecific, although please consider areas of pulmonary edema versus atypical infection. Additional findings: Cholecystectomy Fluid containing periumbilical hernia Apparent AVN seen of the femoral heads, right worse than left. Dictated by: Jluis Red M.D. on 05/24/2023 at 21:49 Approved by: Jluis Red M.D. on 05/24/2023 at 21:58
--- NOTE | 2023-05-24 21:28 | DI.RAD.S_ITS ---
PROCEDURE: XR CHEST 1V INDICATIONS: post intubation, central line repositioned TECHNIQUE: One view of the chest was acquired. COMPARISON: [facility], , XR CHEST 1V, 05/24/2023, 20:47. FINDINGS: Surgical changes and devices: An endotracheal tube is seen, with the tip 2 cm above the alejandro. The tip of the right-sided central line has been partially withdrawn since the prior examination and is now seen overlying the superior to mid aspect of the superior vena cava, 5 cm above the alejandro. Cholecystectomy clips are seen. Lungs and pleura: On this supine examination, no large pneumothorax or large pleural effusions are seen. No focal areas of lung consolidation are seen. The superior aspects of the lungs are not included within the field of view of this study. Mediastinum: Mediastinal contours appear normal. Heart size is normal. Bones and chest wall: No suspicious bony lesions. Overlying soft tissues appear unremarkable. IMPRESSION: The tip of the endotracheal tube is seen 2 cm above the alejandro. The tip of the right-sided central line has been adjusted is now seen overlying the superior mid aspect of the superior vena cava. Dictated by: Jluis Red M.D. on 05/24/2023 at 21:04 Approved by: Jluis Red M.D. on 05/24/2023 at 21:06
[2023-05-24] MEDS: ROCURONIUM 50 MG/5 ML INJ 40 MG IV (21:34)
[2023-05-24] MEDS: ETOMIDATE 2 MG/ML 10 ML VIAL 20 MG IV (21:34)
[2023-05-24 21:47] LABS: Hematocrit 24.3 % (36-46); Hemoglobin 8.1 g/dL (12.0-16.0)
[2023-05-24 22:01] LABS: Anisocytosis 3+; Burr Cells 1+; Macrocytosis 2+; Microcytosis 1+; Tear Drop Cells 1+
[2023-05-24] MEDS: MIDAZOLAM 50 MG in DEXTROSE 5 % IN WATER 40 ML IV (22:03)
--- NOTE | 2023-05-24 22:35 | PC.NURSE ---
Since patient's arrival have had inconsistent pulse oxygen readings due to initially patient's agitation and needing to utilize patient's ear lobes for readings. Able to get good reading and pleth on portable monitor.
[2023-05-24] MEDS: MIDAZOLAM 5 MG/ML VIAL 4 MG IV (22:51)
[2023-05-25] VITALS (44 sets, daily range): BP systolic 86–141; BP diastolic 37–70; PULSE 16–126; RESP 16–39; TEMP 34.4–36; O2SAT 96–100
[2023-05-25 00:05] LABS: Fractionated Inspired Oxygen 100; HCO3 ABG 15 mmol/L (23-27); Oxygen Saturation ABG 100 % (95-100); PCO2 ABG 42.6 mmHg (35-45); TCO2 ABG 16 mmol/L (23-27)
[2023-05-25 00:06] LABS: PO2 ABG 471 mmHg (80-100); pH ABG 7.14 (7.35-7.45)
[2023-05-25 00:16] LABS: Hemoglobin 10.5 g/dL (12.0-16.0)
[2023-05-25] MEDS: MIDAZOLAM 5 MG/ML VIAL 4 MG IV (01:19)
[2023-05-25 01:24] LABS: Bacteria Urine Occasional (0-1); COVID19 -Nasal RAPID Negative (Negative); RBC Urine 5-10/HPF (0-5/HPF); Squamous Epithelial Cell Urine 0-1 /HPF (0-5/HPF); WBC Urine 1-5/HPF (0-5/HPF)
[2023-05-25 01:25] LABS: Amorphous Sediment Urine 4+; Culture Indicated Urine Cult Not Indicated
[2023-05-25] MEDS: NOREPINEPHRINE BITARTRATE/D5W 4 MG/250 ML PLAST..BAG 90 MG IV ×2 (02:07→04:51)
[2023-05-25 03:21] LABS: Hematocrit 41.2 % (36-46); Hemoglobin 13.6 g/dL (12.0-16.0)
[2023-05-25] MEDS: MIDAZOLAM 50 MG in DEXTROSE 5 % IN WATER 40 ML 8 MG IV (03:28)
[2023-05-25] MEDS: SODIUM CHLORIDE 0.9% 1,000 ML 1000 ML IV (04:05)
[2023-05-25 04:35] LABS: Albumin 2.6 g/dL (3.5-5.0); Albumin Globulin Ratio 0.9 (1.0-2.8); Alkaline Phosphatase 78 U/L (38-126); BUN Creatinine Ratio 8.4 (6-22); Bilirubin Total 11.1 mg/dL (0.2-1.3); Blood Urea Nitrogen 16 mg/dL (7-17); Calcium 7.6 mg/dL (8.4-10.2); Carbon Dioxide 12 mmol/L (22-32); Chloride 100 mmol/L (98-107); Estimated Glomerular Filt Rate 29 mL/min (>60); Globulin 2.8 g/dL (1.7-4.1); Glucose 169 mg/dL (80-110); HEMOLYSIS < 15 (0-50); Potassium 4.9 mmol/L (3.4-5.1); Sodium 135 mmol/L (137-145); Total Protein 5.4 g/dL (6.3-8.2)
[2023-05-25 04:41] LABS: Alanine Aminotransferase 142 IU/L (<35)
[2023-05-25 05:00] LABS: Aspartate Aminotransferase > 1500 IU/L (14-36)
--- NOTE | 2023-05-25 05:00 | TAR.TRANSNT ---
Patient having significant upper GI bleeding. MD Manfred gave verbal orders to emergently infuse two units uncrossmatched RBC's, lab delivered and blood verified with ERNIE De La Garza and infused via pressure bags, unit #1 started @2031, finished @2047. Unit #2 started @2050, finished @2117. MD Manfred then gave verbal orders to initiate Mass Transfusion Protocol. The following two units RBC's and two units of FFP were also verified with ERNIE De La Garza and infused via pressure bags. Unit # 3 started @2154, finished @2225 FFP #1 started @2212, finished @2240 Unit #4 started @2244, finished @2305 FFP #2 started @2325, finished @2340 All above blood product administration was recorded on paper chart, see medical records. MD Manfred later ordered additional unit of RBC's and one unit platelets. These infusions were verified with ERNIE Reddy and were documented in TAR.
[2023-05-25] MEDS: OCTREOTIDE 500 MCG in SODIUM CHLORIDE 0.9% 100 ML 10.1 MCG IV (05:32)
--- NOTE | 2023-05-25 05:48 | PC.NURSE ---
[facility] Son Froilan requested phone call for updates and or transfer. PT. Transfered tp [place], A message was left to return a phone call regarding update. RN is aware, she will duscuss details when the son returns the phone call.
--- NOTE | 2023-05-25 07:15 | PC.NURSE ---
[employer] flight team arrived at approximately 0530 with [facility] ground transport team to recieve patient. Bedside report given to flight team RN's. Patient's Vent settings unchanged when switched to airlift portable ventilator (RR 16, TV 400, FiO2 30%, PEEP 5). Medications that remained infusing at time of patient departing ED with transport team were as follows: Versed gtt @ 8mg/hr Levophed gtt @ 0.4mcg/kg/min Octreotide gtt @ 50mcg/hr Patient left ED at approximately 0548. [facility] receiving RN, Yolanda, contacted and report given via phone (#[phone]). Patient going to Room [address] [place] [address] ED ROOM SERVICE ASSOCIATE contacted son of patient and he was updated on patients transfer to [facility]. Froilan (son) [phone].
== END 2023-05-25 05:48 | disposition short-term general hospital (02) ==
PROVIDERS: Emergency Provider Emergency Medicine; PCP Family Medicine
DX: K70.31 Alcoholic cirrhosis of liver with ascites (principal); K92.2 Gastrointestinal hemorrhage, unspecified; J96.91 Respiratory failure, unspecified with hypoxia; K70.40 Alcoholic hepatic failure without coma; D62 Acute posthemorrhagic anemia; R00.0 Tachycardia, unspecified; N17.9 Acute kidney failure, unspecified; Z20.822 Contact with and (suspected) exposure to COVID-19
CPT/HCPCS: 31500; 36430; 36569; 36600; 71045; 71260; 74177; 80053; 80320; 81003; 81015; 82272; 82805; 82962; 85014; 85018; 85025; 85610; 85730; 86850; 86900; 86901; 86927; 87086; 87635; 94003; 96365; 96366; 96367; 96368; 96375; 96376; 99285; 99291; 99292; C9803; P9016; C9113; J0696; J2250; J2354; J2405; P9035